=== PATIENT | female | born 1945 | race Caucasian/White ===

== ENCOUNTER 2016-11-13 12:59 | Emergency (ER) | payer MEDICARE, MEDICAID ==
[2016-11-13 13:09] VITALS: BP 151/82; PULSE 98; RESP 18; TEMP 98.2; O2SAT 97
== END 2016-11-13 15:44 | disposition home or self-care (01) ==
LOC: C.ER 12:59
DX: J20.9 Acute bronchitis, unspecified (principal)

== ENCOUNTER 2017-08-08 11:21 | Inpatient (IN) | payer MEDICARE, MEDICAID ==
[2017-08-08 11:26] VITALS: BMI 39.0
--- NOTE | 2017-08-08 11:55 | C.PDOC ---
History Of Present Illness 71 y/o female s/p surgical lumpectomy and biopsy 07/18 presents to ED sent by Dr Yung for evaluation of possible right breast cellulitis. 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 Yung with complaints of pain to right breast for 2 days and brown discharge since last night. Patient was instructed to come to ED for further evaluation. Patient denies fever or chills. Right breast with clean incisional wounds. Bright erythema mild induration and tenderness to right breast surrounding nipple and incisional wound, no drainage Time Seen by Provider: 08/08/17 11:37 Chief Complaint (Nursing): Breast Problem History Per: Patient History/Exam Limitations: no limitations Onset/Duration Of Symptoms: Days Current Symptoms Are (Timing): Still Present Past Medical History Reviewed: Historical Data, Nursing Documentation, Vital Signs Vital Signs: Last Vital Signs Temp 98.2 F 08/08/17 14:16 Pulse 75 08/08/17 14:16 Resp 18 08/08/17 14:16 BP 150/77 08/08/17 14:16 Pulse Ox 98 08/08/17 14:16 - Medical History PMH: Diabetes, HTN, Hypercholesterolemia Surgical History: Cholecystectomy - [facility] Procedures APPLICATION OF SPLINT (11/12/14) TETANUS TOXOID ADMINIST (08/14/13) Family History: States: No Known Family Hx - Social History Hx Tobacco Use: No Hx Alcohol Use: No Hx Substance Use: No - Immunization History Hx Tetanus Toxoid Vaccination: Yes Hx Influenza Vaccination: Yes Hx Pneumococcal Vaccination: No Review Of Systems Constitutional: Negative for: Fever, Chills Gastrointestinal: Negative for: Nausea, Vomiting Skin: Negative for: Rash Physical Exam - Physical Exam Appears: Non-toxic, No Acute Distress Skin: Warm, Dry, No Rash, Other (bright erythema with mild induration to right breast surrounding nipple up to 3cm diameter) Head: Atraumatic, Normacephalic Eye(s): bilateral: Normal Inspection, EOMI Oral Mucosa: Moist Neck: Normal ROM, Supple Chest: Tenderness (to right breast surrounding nipple and incision wound. No drainage. Tactile warmth) Cardiovascular: Rhythm Regular Respiratory: Normal Breath Sounds, No Rales, No Rhonchi, No Wheezing Gastrointestinal/Abdominal: Soft, No Tenderness, No Guarding, No Rebound Extremity: Normal ROM, Capillary Refill (<2 seconds) Neurological/Psych: Oriented x3, Normal Speech Gait: Steady ED Course And Treatment - Laboratory Results Result Diagrams: 08/08/17 12:25 08/08/17 12:25 Lab Interpretation: No Acute Changes O2 Sat by Pulse Oximetry: 100 (RA) Pulse Ox Interpretation: Normal - CT Scan/US breast US Other Rad Studies (CT/US): Read By Radiologist, Radiology Report Reviewed CT/US Interpretation: Accession No. : [id number]. Patient Name / ID : SAM COTTRELL / [id number]. Exam Date : 08/08/2017 13:20:26 ( Approved ). Study Comment : Sex / Age : F / 71Y. Creator : Dwight Govea MD. Dictator : Dwight Govea MD. Life [employer] : Chronic Care Nurse : Dwight Govea MD. Approver2 : Report Date : 08/08/2017 14:14:31. My Comment : . Exam: ultrasound evaluation of the right breast. HISTORY: History recent right breast conservation surgery. Right breast erythema and tenderness. Comparison: Breast ultrasound 2017. FINDINGS: Whole right breast ultrasound was performed. veterinary surgery technologist reported right breast erythema during the exam. Diffuse breast edema noted. In the lower-inner quadrant, there is a complex 7.2 x 4.4 cm fluid collection containing internal echogenic debris. Images of the axilla are unremarkable. IMPRESSION: Complex fluid collection in the right breast lower inner quadrant measuring 7.2 cm. Given diffuse breast edema and erythema, findings favor abscess. Seroma could also be considered. BIRADS Category 2 - benign. RECOMMENDATION: Recommend clinical evaluation by breast surgeon. Consider antibiotic therapy and follow-up ultrasound. Medical Decision Making Medical Decision Making: Impression: Right breast cellulitis, possible abscess Plan: Blood work, UA, Breast US ordered. Clindamycin and IV fluids administered. Progress: Spoke with DR. Yung further history obtained and request patient have IV antibiotics and admit under her service. Requests Dr Burris for ID consult [id number] US shows Complex fluid collection in the right breast lower inner quadrant measuring 7.2 cm. Given diffuse breast edema and erythema, findings favor abscess. Seroma could also be considered. Disposition Counseled Patient/Family Regarding: Diagnosis, Need For Followup - Disposition Disposition: HOSPITALIZED Disposition Time: 13:20 Condition: STABLE - POA Present On Arrival: None - Clinical Impression Clinical Impression: Cellulitis of right breast, History of breast cancer, Breast abscess - PA / ORDERLY / Resident Statement MD/DO has reviewed & agrees with the documentation as recorded. - Scribe Statement The provider has reviewed the documentation as recorded by the Scribe Blessing Rider All medical record entries made by the Luisibharika were at my direction and personally dictated by me. I have reviewed the chart and agree that the record accurately reflects my personal performance of the history, physical exam, medical decision making, and the department course for this patient. I have also personally directed, reviewed, and agree with the discharge instructions and disposition. Decision To Admit - Pt Status Changed To: Hospital Disposition Of: Inpatient - Admit Certification Admit to Inpatient:: After my assessment, the patient will require hospitalization for at least two midnights. This is because of the severity of symptoms shown, intensity of services needed, and/or the medical risk in this patient being treated as an outpatient. - InPatient: Physician Admission Certification: I certify that this patient requires 2 or more midnights of care for the following reason:: Patient with acute cellulitis of right breast, recent surgery, has cancer. Patient will need ID consult and IV antibiotics - . Bed Request Type: Regular Admitting Physician: Nicole Yung Patient Diagnosis: Cellulitis of right breast, History of breast cancer
[2017-08-08 12:34] LABS: BASO # 0.1 K/uL (0.0-0.2); BASO % 0.9 % (0.0-2.0); EOS # 0.1 K/uL (0.0-0.7); EOS % 1.3 % (0.0-4.0); HEMOGLOBIN 14.1 g/dL (11.0-16.0); LYMPH # 2.1 K/uL (1.0-4.3); LYMPH % 24.4 % (20.0-40.0); MEAN CELL VOLUME 94.1 fL (81.0-99.0); MEAN CORPUSCULAR HEMOGLOBIN 31.6 pg (27.0-31.0); MEAN CORPUSCULAR HGB CONC 33.6 g/dL (33.0-37.0); MEAN PLATELET VOLUME 8.6 fL (7.2-11.7); MONO # 0.6 K/uL (0.0-0.8); MONO % 7.3 % (0.0-10.0); NEUT # 5.6 K/uL (1.8-7.0); NEUT % 66.1 % (50.0-75.0); NRBC % 0.1 % (0.0-2.0); RBC 4.45 Mil/uL (3.80-5.20); RED CELL DISTRIBUTION WIDTH 14.3 % (11.5-14.5); WHITE BLOOD COUNT 8.4 K/uL (4.8-10.8)
[2017-08-08 12:43] LABS: INR 1.1
[2017-08-08 13:15] LABS: ALBUMIN 3.9 g/dL (3.5-5.0); ALT/SGPT 41 U/L (9-52); AST/SGOT 47 U/L (14-36); BLOOD UREA NITROGEN 13 mg/dL (7-17); CALCIUM 9.7 mg/dl (8.6-10.4); GFR AFRICAN-AMERICAN > 60; GFR NON-AFRICAN AMERICAN > 60
[2017-08-08] MEDS: Clindamycin 300 MG in Sodium Chloride 0.9% 50 ML IVPB SCH ×2 (14:10→20:27)
--- NOTE | 2017-08-08 14:16 | US ---
Exam: ultrasound evaluation of the right breast. HISTORY: History recent right breast conservation surgery. Right breast erythema and tenderness. Comparison: Breast ultrasound 06/21/2017 FINDINGS: Whole right breast ultrasound was performed. cytopathology technologist reported right breast erythema during the exam. Diffuse breast edema noted. In the lower-inner quadrant, there is a complex 7.2 x 4.4 cm fluid collection containing internal echogenic debris. Images of the axilla are unremarkable. IMPRESSION: Complex fluid collection in the right breast lower inner quadrant measuring 7.2 cm. Given diffuse breast edema and erythema, findings favor abscess. Seroma could also be considered. BIRADS Category 2 - benign RECOMMENDATION: Recommend clinical evaluation by breast surgeon. Consider antibiotic therapy and follow-up ultrasound.
[2017-08-08 14:22] LABS: SQUAMOUS EPITHIAL 6 /hpf (0-5); URINE BACTERIA RARE (<OCC); URINE BILIRUBIN NEGATIVE (NEGATIVE); URINE BLOOD 1+ (NEGATIVE); URINE CLARITY Clear (Clear); URINE COLOR Straw (YELLOW); URINE GLUCOSE (UA) 3+ mg/dL (Normal); URINE LEUKOCYTE ESTERASE 1+ Leu/uL (Negative); URINE PROTEIN NEGATIVE (NEGATIVE); URINE UROBILINOGEN NORMAL mg/dL (0.2-1.0)
--- NOTE | 2017-08-08 16:19 | CP.PCM.HP ---
History of Present Illness - History of Present Illness History of Present Illness: cc; Right breast discharge HPI; Pt is a 71 year old female recently diagnosed with right breast cancer, metastatic. Pt underwent right breast surgery by Dr. Gordon. Pt presented to my office today co right breast "coffee color", discharge and redness. Pt however denies any fever or chills. PT is being followed by Dr. Baker was planning to insert Portacath for chemo. Present on Admission - Present on Admission Any Indicators Present on Admission: No Review of Systems - Constitutional Constitutional: absent: Chills, Fever - EENT Ears: absent: Decreased Hearing Nose/Mouth/Throat: absent: Nasal Congestion - Breasts Breasts: Pain, Skin Changes, Swelling - Cardiovascular Cardiovascular: absent: Chest Pain, Chest Pain with Activity, Orthopnea - Respiratory Respiratory: absent: Cough, Wheezing - Gastrointestinal Gastrointestinal: absent: Abdominal Pain Past Patient History - Infectious Disease Hx of Infectious Diseases: None - Past Medical History & Family History Past Medical History?: Yes - Past Social History Smoking Status: Never Smoked - CARDIAC Hx Hypercholesterolemia: Yes Hx Hypertension: Yes - PULMONARY Hx Respiratory Disorders: No - NEUROLOGICAL Hx Neurological Disorder: No Other/Comment: AAOX3 - HEENT Hx HEENT Problems: No Other/Comment: WEARS GLASSES - RENAL Hx Chronic Kidney Disease: No - ENDOCRINE/METABOLIC Hx Endocrine Disorders: Yes Hx Diabetes Mellitus Type 2: Yes - HEMATOLOGICAL/ONCOLOGICAL Hx Blood Disorders: Yes Hx Blood Transfusions: No Hx Cancer: Yes Other/Comment: Malignant neoplasm rt breast - INTEGUMENTARY Hx Dermatological Problems: No - MUSCULOSKELETAL/RHEUMATOLOGICAL Hx Musculoskeletal Disorders: No Hx Falls: No (DENIES) Other/Comment: AMBULATES WITH CANE - GASTROINTESTINAL Hx Gastrointestinal Disorders: Yes - GENITOURINARY/GYNECOLOGICAL Hx Genitourinary Disorders: No - PSYCHIATRIC Hx Substance Use: No - SURGICAL HISTORY Hx Cholecystectomy: Yes - ANESTHESIA Hx Anesthesia: Yes Hx Anesthesia Reactions: No Hx Malignant Hyperthermia: No Meds Allergies/Adverse Reactions: Allergies Allergy/AdvReac Type Severity Reaction Status Date / Time amoxicillin [From Augmentin] Allergy RASH Verified 08/08/17 11:30 clavulanic acid Allergy RASH Verified 08/08/17 11:30 [From Augmentin] Physical Exam - Constitutional Appears: Well - Eye Exam Eye Exam: Normal appearance - ENT Exam ENT Exam: Mucous Membranes Moist - Neck Exam Neck exam: Positive for: Normal Inspection - Respiratory Exam Respiratory Exam: Clear to Auscultation Bilateral, NORMAL BREATHING PATTERN. absent: Chest Wall Tenderness, Rales - Cardiovascular Exam Cardiovascular Exam: REGULAR RHYTHM, RRR, +S1, +S2. absent: JVD - GI/Abdominal Exam GI & Abdominal Exam: Normal Bowel Sounds, Soft - Extremities Exam Extremities exam: Positive for: normal inspection. Negative for: pedal edema ( right breast tender, skin red and warm and draining dark color fluid) Results - Vital Signs Recent Vital Signs: Last Vital Signs Temp 98.2 F 08/08/17 14:16 Pulse 75 08/08/17 14:16 Resp 18 08/08/17 14:16 BP 150/77 08/08/17 14:16 Pulse Ox 98 08/08/17 14:16 - Labs Result Diagrams: 08/08/17 12:25 08/08/17 12:25 Labs: Laboratory Results - last 24 hr 08/08/17 08/08/17 08/08/17 12:25 12:25 12:25 WBC 8.4 RBC 4.45 Hgb 14.1 Hct 41.9 MCV 94.1 MCH 31.6 H MCHC 33.6 RDW 14.3 Plt Count 272 MPV 8.6 Neut % (Auto) 66.1 Lymph % (Auto) 24.4 [place] % (Auto) 7.3 Eos % (Auto) 1.3 Baso % (Auto) 0.9 Neut # (Auto) 5.6 Lymph # (Auto) 2.1 [place] # (Auto) 0.6 Eos # (Auto) 0.1 Baso # (Auto) 0.1 PT 12.0 INR 1.1 APTT 34 Sodium 142 Potassium 4.1 Chloride 102 Carbon Dioxide 29 Anion Gap 15 BUN 13 Creatinine 0.6 L Est GFR ( Amer) > 60 Est GFR (Non-Af Amer) > 60 Random Glucose 99 Calcium 9.7 Total Bilirubin 0.6 AST 47 H ALT 41 Alkaline Phosphatase 72 Total Protein 7.9 Albumin 3.9 Globulin 4.0 H Albumin/Globulin Ratio 1.0 Urine Color Urine Clarity Urine pH Ur Specific [place] Urine Protein Urine Glucose (UA) Urine Ketones Urine Blood Urine Nitrate Urine Bilirubin Urine Urobilinogen Ur Leukocyte Esterase Urine WBC (Auto) Urine RBC (Auto) Ur Squamous Epith Cells Urine Bacteria 08/08/17 14:06 WBC RBC Hgb Hct MCV MCH MCHC RDW Plt Count MPV Neut % (Auto) Lymph % (Auto) [place] % (Auto) Eos % (Auto) Baso % (Auto) Neut # (Auto) Lymph # (Auto) [place] # (Auto) Eos # (Auto) Baso # (Auto) PT INR APTT Sodium Potassium Chloride Carbon Dioxide Anion Gap BUN Creatinine Est GFR ( Amer) Est GFR (Non-Af Amer) Random Glucose Calcium Total Bilirubin AST ALT Alkaline Phosphatase Total Protein Albumin Globulin Albumin/Globulin Ratio Urine Color Straw Urine Clarity Clear Urine pH 6.0 Ur Specific [place] 1.012 Urine Protein Negative Urine Glucose (UA) 3+ H Urine Ketones Negative Urine Blood 1+ H Urine Nitrate Negative Urine Bilirubin Negative Urine Urobilinogen Normal Ur Leukocyte Esterase 1+ H Urine WBC (Auto) 13 H Urine RBC (Auto) 10 H Ur Squamous Epith Cells 6 H Urine Bacteria Rare Assessment & Plan - Assessment and Plan (Free Text) Assessment: Metastatic breast ca recent right breast surgery no infected dm htn admid id and hem onc consutl IV abx blood culture spoke to Dr. Burris added ivf to protect from vanco
--- NOTE | 2017-08-08 17:43 | CP.PCM.CON ---
History of Present Illness - History of Present Illness History of Present Illness: INFECTIOUS DISEASE CONSULT; HPI; 71-year-old female with history of diabetes mellitus 2, HTN, hypercholesterolemia was recently diagnosed with right breast ductal metastatic breast CA. Patient underwent right breast surgery [place] [facility]. Patient presented to the office of PMD today complaining off pain right breast radiating to her shoulder and upper arm and coffee color discharge and erythema and redness of right breast. Patient denies any fever or chills but is complaining of pain on the incision sites above and below the breast and also generalized pain in the breast. PATIENT PRESENTLY NOT ON ANY CHEMOTHERAPY,BUT IS FOLLOWING UP WITH ONCOLOGIST DR. RUSHING. PATIENT DENIES ANY COUGH, SHORTNESS OF BREATH, CHEST PAIN OR PALPITATIONS. PMH: Diabetes, HTN, Hypercholesterolemia Surgical History: Cholecystectomy, S/P RIGHT BREAST BIOPSY 07/18/17 [place] [facility]. - [facility] Procedures APPLICATION OF SPLINT (11/12/14) TETANUS TOXOID ADMINIST (08/14/13) Family History: States: No Known Family Hx - Social History Hx Tobacco Use: No Hx Alcohol Use: No Hx Substance Use: No - Immunization History Hx Tetanus Toxoid Vaccination: Yes Hx Influenza Vaccination: Yes Hx Pneumococcal Vaccination: No. ALLERGY; AMOXICILLIN, CLAVULANIC ACID. Review of Systems - Constitutional Constitutional: absent: Chills, Fever - EENT Eyes: absent: Change in Vision Nose/Mouth/Throat: absent: Dry Mouth - Breasts Breasts: As Per HPI, Pain, Skin Changes, Swelling (RIGHT BREAST INDURATED, WARM , ERYTHEMATOUS WITH EDEMA AND TENDERNESS ON PALPATION.) - Cardiovascular Cardiovascular: Chest Pain (RIGHT CHEST AND SHOULDER PAIN RADIATING FROM THE BREAST.). absent: Dyspnea - Respiratory Respiratory: absent: Cough, Hemoptysis - Gastrointestinal Gastrointestinal: absent: Abdominal Pain, Nausea, Vomiting - Genitourinary Genitourinary: absent: Dysuria, Urinary Hesitance - Menstruation Menstruation: Post Menopausal - Musculoskeletal Musculoskeletal: Radiating Pain into Limb (FROM RIGHT BREAST 2 UPPER ARM AND SHOULDER.) - Neurological Neurological: Behavioral Changes. absent: Headaches - Hematologic/Lymphatic Hematologic: As Per HPI. absent: Easy Bruising, Lymphadenopathy Past Patient History - Infectious Disease Hx of Infectious Diseases: None - Past Medical History & Family History Past Medical History?: Yes - Past Social History Smoking Status: Never Smoked - CARDIAC Hx Hypercholesterolemia: Yes Hx Hypertension: Yes - PULMONARY Hx Respiratory Disorders: No - NEUROLOGICAL Hx Neurological Disorder: No Other/Comment: AAOX3 - HEENT Hx HEENT Problems: No Other/Comment: WEARS GLASSES - RENAL Hx Chronic Kidney Disease: No - ENDOCRINE/METABOLIC Hx Endocrine Disorders: Yes Hx Diabetes Mellitus Type 2: Yes - HEMATOLOGICAL/ONCOLOGICAL Hx Blood Disorders: Yes Hx Blood Transfusions: No Hx Cancer: Yes Other/Comment: Malignant neoplasm rt breast - INTEGUMENTARY Hx Dermatological Problems: No - MUSCULOSKELETAL/RHEUMATOLOGICAL Hx Musculoskeletal Disorders: No Hx Falls: No (DENIES) Other/Comment: AMBULATES WITH CANE - GASTROINTESTINAL Hx Gastrointestinal Disorders: Yes - GENITOURINARY/GYNECOLOGICAL Hx Genitourinary Disorders: No - PSYCHIATRIC Hx Substance Use: No - SURGICAL HISTORY Hx Cholecystectomy: Yes - ANESTHESIA Hx Anesthesia: Yes Hx Anesthesia Reactions: No Hx Malignant Hyperthermia: No Meds Allergies/Adverse Reactions: Allergies Allergy/AdvReac Type Severity Reaction Status Date / Time amoxicillin [From Augmentin] Allergy RASH Verified 08/08/17 11:30 clavulanic acid Allergy RASH Verified 08/08/17 11:30 [From Augmentin] - Medications Medications: Current Medications Aspirin (Ecotrin) 81 mg PO DAILY [facility] Heparin Sodium (Porcine) (Heparin) 5,000 units SC Q8 [facility] Hydrochlorothiazide (Hydrodiuril) 25 mg PO DAILY [facility] Clindamycin Phosphate 300 mg/ (Sodium Chloride) 52 mls @ 100 mls/hr IVPB Q8H [facility] PRN Reason: Protocol Last Admin: 08/08/17 14:10 Dose: 100 mls/hr Vancomycin HCl 1,000 mg/ (Sodium Chloride) 250 mls @ 166.6 mls/hr IVPB Q12H [facility] PRN Reason: Protocol Aztreonam 1 gm/ Sodium (Chloride) 100 mls @ 100 mls/hr IVPB Q8H [facility] PRN Reason: Protocol Insulin Aspart (Novolog) 0 unit SC ACHS [facility] PRN Reason: Protocol Insulin Glargine (Lantus) 45 unit SC HS [facility] Losartan Potassium (Cozaar) 100 mg PO DAILY [facility] Pantoprazole Sodium (Protonix Ec Tab) 40 mg PO DAILY [facility] Rosuvastatin Calcium (Crestor) 20 mg PO HS [facility] Physical Exam - Constitutional Appears: No Acute Distress Additional comments: MODERATELY OBESE, WEIGHT 200 POUNDS. bmi 39.1 kg PER METER SQUARE. - Head Exam Head Exam: NORMAL INSPECTION - Eye Exam Eye Exam: EOMI, PERRL - ENT Exam ENT Exam: Normal Oropharynx - Respiratory Exam Respiratory Exam: Clear to Auscultation Bilateral, NORMAL BREATHING PATTERN - GI/Abdominal Exam GI & Abdominal Exam: Normal Bowel Sounds, Soft. absent: Organomegaly - Extremities Exam Extremities exam: Positive for: normal capillary refill, pedal pulses present. Negative for: calf tenderness, pedal edema - Neurological Exam Neurological exam: Alert, CN II-XII Intact, Oriented x3, Reflexes Normal - Psychiatric Exam Psychiatric exam: Normal Mood - Skin Skin Exam: Erythema (RIGHT BREAST WITH INDURATED SKIN AND ERYTHEMA AND CELLULITIS. tENDERNESS TO PALPATION.), Warm Results - Vital Signs Recent Vital Signs: Last Vital Signs Temp 97.6 F 08/08/17 16:09 Pulse 76 08/08/17 16:09 Resp 20 08/08/17 16:09 BP 144/77 08/08/17 16:09 Pulse Ox 100 08/08/17 17:04 - Labs Result Diagrams: 08/08/17 12:25 08/08/17 12:25 Labs: Laboratory Results - last 24 hr 08/08/17 08/08/17 08/08/17 12:25 12:25 12:25 WBC 8.4 RBC 4.45 Hgb 14.1 Hct 41.9 MCV 94.1 MCH 31.6 H MCHC 33.6 RDW 14.3 Plt Count 272 MPV 8.6 Neut % (Auto) 66.1 Lymph % (Auto) 24.4 [place] % (Auto) 7.3 Eos % (Auto) 1.3 Baso % (Auto) 0.9 Neut # (Auto) 5.6 Lymph # (Auto) 2.1 [place] # (Auto) 0.6 Eos # (Auto) 0.1 Baso # (Auto) 0.1 PT 12.0 INR 1.1 APTT 34 Sodium 142 Potassium 4.1 Chloride 102 Carbon Dioxide 29 Anion Gap 15 BUN 13 Creatinine 0.6 L Est GFR ( Amer) > 60 Est GFR (Non-Af Amer) > 60 POC Glucose (mg/dL) Random Glucose 99 Calcium 9.7 Total Bilirubin 0.6 AST 47 H ALT 41 Alkaline Phosphatase 72 Total Protein 7.9 Albumin 3.9 Globulin 4.0 H Albumin/Globulin Ratio 1.0 Urine Color Urine Clarity Urine pH Ur Specific [place] Urine Protein Urine Glucose (UA) Urine Ketones Urine Blood Urine Nitrate Urine Bilirubin Urine Urobilinogen Ur Leukocyte Esterase Urine WBC (Auto) Urine RBC (Auto) Ur Squamous Epith Cells Urine Bacteria 08/08/17 08/08/17 14:06 16:27 WBC RBC Hgb Hct MCV MCH MCHC RDW Plt Count MPV Neut % (Auto) Lymph % (Auto) [place] % (Auto) Eos % (Auto) Baso % (Auto) Neut # (Auto) Lymph # (Auto) [place] # (Auto) Eos # (Auto) Baso # (Auto) PT INR APTT Sodium Potassium Chloride Carbon Dioxide Anion Gap BUN Creatinine Est GFR ( Amer) Est GFR (Non-Af Amer) POC Glucose (mg/dL) 183 H Random Glucose Calcium Total Bilirubin AST ALT Alkaline Phosphatase Total Protein Albumin Globulin Albumin/Globulin Ratio Urine Color Straw Urine Clarity Clear Urine pH 6.0 Ur Specific [place] 1.012 Urine Protein Negative Urine Glucose (UA) 3+ H Urine Ketones Negative Urine Blood 1+ H Urine Nitrate Negative Urine Bilirubin Negative Urine Urobilinogen Normal Ur Leukocyte Esterase 1+ H Urine WBC (Auto) 13 H Urine RBC (Auto) 10 H Ur Squamous Epith Cells 6 H Urine Bacteria Rare Assessment & Plan (1) Breast abscess Assessment and Plan: S/P BREAST SURGERY 07/18/17 .BLOOD CULTURES 2 SETS. .DRAINAGE RIGHT BREAST FOR CULTURE. . START iv VANCOMYCIN 1 G EVERY 12 HOURLY 08/08/17. . START iv AZACTAM 1 G EVERY 8 HOURLY FOR GRAM-NEGATIVE COVERAGE WHILE AWAITING CULTURES. . 08/08/17 . CONTINUE iv CLEOCIN 300 MG EVERY 8 HOURLY. 08/08/17. . fOLLOW-UP VANCO TROUGH PRIOR TO THE FOURTH DOSE AND KEEP BETWEEN 10 AND 20. . ESR . CRP. . F/U RENAL FUNCTIONS CLOSELY.. . F/U LFTS. Status: Acute (2) Cellulitis of right breast Status: Acute (3) History of breast cancer Assessment and Plan: S/P RIGHT BREAST SURGERY 07/18/17. Status: Acute (4) Diabetes Status: Chronic (5) Hypertension Status: Chronic (6) Hypercholesterolemia Status: Acute
[2017-08-08] MEDS: (Novolog) Insulin Aspart, Recombinant 100 u/ml 10 ml vial SC SCH ×2 (18:05→21:55)
[2017-08-08] MEDS: Aztreonam 1 GM in Sodium Chloride 0.9% 100 ML IVPB SCH (20:26)
[2017-08-08] MEDS: Vancomycin 1 gm/NS 200 ml 1 GM/200 ML BAG IVPB SCH (20:36)
[2017-08-08] MEDS: (Lantus) Insulin Glargine, Recombinant SC SCH (21:53)
[2017-08-09] MEDS: Aztreonam 1 GM in Sodium Chloride 0.9% 100 ML IVPB SCH ×3 (03:09→18:02)
[2017-08-09] MEDS: Clindamycin 300 MG in Sodium Chloride 0.9% 50 ML IVPB SCH ×3 (04:38→20:11)
[2017-08-09] MEDS: (Novolog) Insulin Aspart, Recombinant 100 u/ml 10 ml vial SC SCH ×4 (07:42→21:29)
[2017-08-09] MEDS: Vancomycin 1 gm/NS 200 ml 1 GM/200 ML BAG IVPB SCH ×2 (08:20→20:11)
[2017-08-09] MEDS: Pantoprazole 40 mg EC Tab PO SCH (09:52)
--- NOTE | 2017-08-09 16:41 | CP.PCM.PN ---
Subjective - Date & Time of Evaluation Date of Evaluation: 08/09/17 Time of Evaluation: 16:40 - Subjective Subjective: see H and p Physical done today less swelling stilll tender however dark color breast discharge Objective - Vital Signs/Intake and Output Vital Signs (last 24 hours): Temp Pulse Resp BP Pulse Ox 98.9 F 78 20 120/67 98 08/09/17 08:00 08/09/17 14:04 08/09/17 08:00 08/09/17 14:04 08/09/17 14:04 Intake and Output: 08/09/17 08/09/17 06:59 18:59 Intake Total 600 1222 Balance 600 1222 - Medications Medications: Current Medications Aspirin (Ecotrin) 81 mg PO DAILY [facility] Last Admin: 08/09/17 09:52 Dose: 81 mg Heparin Sodium (Porcine) (Heparin) 5,000 units SC Q8 [facility] Last Admin: 08/09/17 14:08 Dose: 5,000 units Hydrochlorothiazide (Hydrodiuril) 25 mg PO DAILY [facility] Last Admin: 08/09/17 09:52 Dose: 25 mg Clindamycin Phosphate 300 mg/ (Sodium Chloride) 52 mls @ 100 mls/hr IVPB Q8H [facility] PRN Reason: Protocol Last Admin: 08/09/17 12:12 Dose: 100 mls/hr Vancomycin/Sodium Chloride (Vancomycin 1 Gm/Ns 200 Ml) 1 gm in 200 mls @ 133 mls/hr IVPB Q12H [facility] PRN Reason: Protocol Stop: 08/13/17 20:01 Last Admin: 08/09/17 08:20 Dose: 133 mls/hr Aztreonam 1 gm/ Sodium (Chloride) 100 mls @ 100 mls/hr IVPB Q8H [facility] PRN Reason: Protocol Last Admin: 08/09/17 10:56 Dose: 100 mls/hr Sodium Chloride (Sodium Chloride 0.45%) 1,000 mls @ 50 mls/hr IV .Q20H [facility] Insulin Aspart (Novolog) 0 unit SC ACHS [facility] PRN Reason: Protocol Last Admin: 08/09/17 11:51 Dose: Not Given Insulin Glargine (Lantus) 45 unit SC HS [facility] Last Admin: 08/08/17 21:53 Dose: 45 units Losartan Potassium (Cozaar) 100 mg PO DAILY [facility] Last Admin: 08/09/17 09:52 Dose: 100 mg Pantoprazole Sodium (Protonix Ec Tab) 40 mg PO DAILY [facility] Last Admin: 08/09/17 09:52 Dose: 40 mg Rosuvastatin Calcium (Crestor) 20 mg PO HS [facility] Last Admin: 08/08/17 21:55 Dose: 20 mg - Labs Labs: 08/08/17 12:25 08/08/17 12:25 PT 12.0 SECONDS (9.7-12.2) 08/08/17 12:25 INR 1.1 08/08/17 12:25 APTT 34 SECONDS (21-34) 08/08/17 12:25 - Eye Exam Eye Exam: Normal appearance - ENT Exam ENT Exam: Mucous Membranes Moist - Respiratory Exam Respiratory Exam: Chest Wall Tenderness - Cardiovascular Exam Cardiovascular Exam: REGULAR RHYTHM - GI/Abdominal Exam GI & Abdominal Exam: Soft Assessment and Plan - Assessment and Plan (Free Text) Assessment: id; managing abx ultrasound breat rule out abscess bp and diabetes ; stable
[2017-08-09] MEDS: Sodium Chloride 0.45% 1,000 ML IV SCH (18:21)
--- NOTE | 2017-08-09 19:28 | CP.PCM.CON ---
History of Present Illness - History of Present Illness History of Present Illness: 71 yo woman with recent lumpectomy for rt. breast cancer, increasing redness, swelling, pain over the past week. Denies fever, chills. Past Patient History - Infectious Disease Hx of Infectious Diseases: None - Past Medical History & Family History Past Medical History?: Yes - Past Social History Smoking Status: Never Smoked - CARDIAC Hx Hypercholesterolemia: Yes Hx Hypertension: Yes - PULMONARY Hx Respiratory Disorders: No - NEUROLOGICAL Hx Neurological Disorder: No Other/Comment: AAOX3 - HEENT Hx HEENT Problems: No Other/Comment: WEARS GLASSES - RENAL Hx Chronic Kidney Disease: No - ENDOCRINE/METABOLIC Hx Endocrine Disorders: Yes Hx Diabetes Mellitus Type 2: Yes - HEMATOLOGICAL/ONCOLOGICAL Hx Blood Disorders: Yes Hx Blood Transfusions: No Hx Cancer: Yes Other/Comment: Malignant neoplasm rt breast - INTEGUMENTARY Hx Dermatological Problems: No - MUSCULOSKELETAL/RHEUMATOLOGICAL Hx Musculoskeletal Disorders: No Hx Falls: No (DENIES) Other/Comment: AMBULATES WITH CANE - GASTROINTESTINAL Hx Gastrointestinal Disorders: Yes - GENITOURINARY/GYNECOLOGICAL Hx Genitourinary Disorders: No - PSYCHIATRIC Hx Substance Use: No - SURGICAL HISTORY Hx Cholecystectomy: Yes - ANESTHESIA Hx Anesthesia: Yes Hx Anesthesia Reactions: No Hx Malignant Hyperthermia: No Meds Allergies/Adverse Reactions: Allergies Allergy/AdvReac Type Severity Reaction Status Date / Time amoxicillin [From Augmentin] Allergy RASH Verified 08/08/17 11:30 clavulanic acid Allergy RASH Verified 08/08/17 11:30 [From Augmentin] - Medications Medications: Current Medications Aspirin (Ecotrin) 81 mg PO DAILY [facility] Last Admin: 08/09/17 09:52 Dose: 81 mg Heparin Sodium (Porcine) (Heparin) 5,000 units SC Q8 [facility] Last Admin: 08/09/17 14:08 Dose: 5,000 units Hydrochlorothiazide (Hydrodiuril) 25 mg PO DAILY [facility] Last Admin: 08/09/17 09:52 Dose: 25 mg Clindamycin Phosphate 300 mg/ (Sodium Chloride) 52 mls @ 100 mls/hr IVPB Q8H [facility] PRN Reason: Protocol Last Admin: 08/09/17 12:12 Dose: 100 mls/hr Vancomycin/Sodium Chloride (Vancomycin 1 Gm/Ns 200 Ml) 1 gm in 200 mls @ 133 mls/hr IVPB Q12H [facility] PRN Reason: Protocol Stop: 08/13/17 20:01 Last Admin: 08/09/17 08:20 Dose: 133 mls/hr Aztreonam 1 gm/ Sodium (Chloride) 100 mls @ 100 mls/hr IVPB Q8H [facility] PRN Reason: Protocol Last Admin: 08/09/17 18:02 Dose: 100 mls/hr Sodium Chloride (Sodium Chloride 0.45%) 1,000 mls @ 50 mls/hr IV .Q20H [facility] Last Admin: 08/09/17 18:21 Dose: 50 mls/hr Insulin Aspart (Novolog) 0 unit SC ACHS [facility] PRN Reason: Protocol Last Admin: 08/09/17 18:05 Dose: 1 unit Insulin Glargine (Lantus) 45 unit SC [facility] Last Admin: 08/08/17 21:53 Dose: 45 units Losartan Potassium (Cozaar) 100 mg PO DAILY [facility] Last Admin: 08/09/17 09:52 Dose: 100 mg Pantoprazole Sodium (Protonix Ec Tab) 40 mg PO DAILY [facility] Last Admin: 08/09/17 09:52 Dose: 40 mg Rosuvastatin Calcium (Crestor) 20 mg PO [facility] Last Admin: 08/08/17 21:55 Dose: 20 mg Results - Vital Signs Recent Vital Signs: Last Vital Signs Temp 98.3 F 08/09/17 15:00 Pulse 80 08/09/17 15:00 Resp 20 08/09/17 15:00 BP 152/82 H 08/09/17 15:00 Pulse Ox 99 08/09/17 15:00 - Labs Result Diagrams: 08/08/17 12:25 08/08/17 12:25 Labs: Laboratory Results - last 24 hr 08/08/17 08/09/17 08/09/17 21:20 07:23 11:19 POC Glucose (mg/dL) 139 H 107 128 H 08/09/17 16:18 POC Glucose (mg/dL) 152 H Assessment & Plan - Assessment and Plan (Free Text) Assessment: 71 yo woman, with history of breast cancer, increasing left breast tenderness, swelling, redness, with pain traveling down the rt. arm, brownish green discharge from wound, currently on antibiotics by ID. Continue antibiotics, will need aspiration or drainage of ? infected seroma, ? as outpatient. Will schedule portacat for monday if patient feeling better and cleared by ID for procedure. Above discussed with patient
[2017-08-09] MEDS ORDERED: Oxycodone/Acetaminophen 5/325 mg Tab PO PRN (19:29)
--- NOTE | 2017-08-09 19:34 | CP.PCM.PN ---
Subjective - Date & Time of Evaluation Date of Evaluation: 08/09/17 Time of Evaluation: 19:34 - Subjective Subjective: CHIEF COMPLAINTS TODAY : afebrile,VSS C/O RT. BREAST PAIN AND DISCHARGE Seropurulent. ROS. HEENT : N. Resp : No SOB wheezing, cough Cardio : No CP, PND orthopnea GI : No abd. 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 Musculoskel : N Ext. : Pedal pulses intact, no edema or calf pain Derm : N Psych : N. PE. Pt. is alert awake in no distress. V.S As noted in the chart Head ,ear nose,throat and eyes : Normal. Neck : Supple with normal carotids. Lungs: Clear air entry. Heart : S1 & S2 normal . . No murmur. S4 + Abd : Soft non tender with normal bowel sounds. Neuro : Moves all ext. with no localized deficit. Ext : No edema with intact pulses. Neg. calf tenderness Derm : RT. BREAST EDEMATOUS/INDURATED WITH ERYTHEMA AND CELLULITIS WHOLE OF THE BREAST. SEROSANGUINEOUS DRAINAGE NOTED FROM THE LOWER INCISION SITE OF THE BREAST. Radiology/Labs . ULTRASOUND RIGHT BREAST NOTED 08/08/17. 7.2 CM COLLECTION ? ABSCESS/VS SEROMA. Objective - Vital Signs/Intake and Output Vital Signs (last 24 hours): Temp Pulse Resp BP Pulse Ox 98.3 F 80 20 152/82 H 99 08/09/17 15:00 08/09/17 15:00 08/09/17 15:00 08/09/17 15:00 08/09/17 15:00 Intake and Output: 08/09/17 08/10/17 18:59 06:59 Intake Total 1222 Balance 1222 - Medications Medications: Current Medications Aspirin (Ecotrin) 81 mg PO DAILY [facility] Last Admin: 08/09/17 09:52 Dose: 81 mg Docusate Sodium (Colace) 100 mg PO BID [facility] Heparin Sodium (Porcine) (Heparin) 5,000 units SC Q8 [facility] Last Admin: 08/09/17 14:08 Dose: 5,000 units Hydrochlorothiazide (Hydrodiuril) 25 mg PO DAILY [facility] Last Admin: 08/09/17 09:52 Dose: 25 mg Clindamycin Phosphate 300 mg/ (Sodium Chloride) 52 mls @ 100 mls/hr IVPB Q8H [facility] PRN Reason: Protocol Last Admin: 08/09/17 12:12 Dose: 100 mls/hr Vancomycin/Sodium Chloride (Vancomycin 1 Gm/Ns 200 Ml) 1 gm in 200 mls @ 133 mls/hr IVPB Q12H [facility] PRN Reason: Protocol Stop: 08/13/17 20:01 Last Admin: 08/09/17 08:20 Dose: 133 mls/hr Aztreonam 1 gm/ Sodium (Chloride) 100 mls @ 100 mls/hr IVPB Q8H [facility] PRN Reason: Protocol Last Admin: 08/09/17 18:02 Dose: 100 mls/hr Sodium Chloride (Sodium Chloride 0.45%) 1,000 mls @ 50 mls/hr IV .Q20H [facility] Last Admin: 08/09/17 18:21 Dose: 50 mls/hr Insulin Aspart (Novolog) 0 unit SC ACHS [facility] PRN Reason: Protocol Last Admin: 08/09/17 18:05 Dose: 1 unit Insulin Glargine (Lantus) [address] [facility] Last Admin: 08/08/17 21:53 Dose: 45 units Losartan Potassium (Cozaar) 100 mg PO DAILY [facility] Last Admin: 08/09/17 09:52 Dose: 100 mg Oxycodone/Acetaminophen (Percocet 5/325 Mg Tab) 1 tab PO Q6H [facility]N PRN Reason: Pain, moderate (4-7) Stop: 08/12/17 19:30 Pantoprazole Sodium (Protonix Ec Tab) 40 mg PO DAILY [facility] Last Admin: 08/09/17 09:52 Dose: 40 mg Rosuvastatin Calcium (Crestor) [address] [facility] Last Admin: 08/08/17 21:55 Dose: 20 mg Tramadol HCl (Ultram) 50 mg PO Q8H [facility] - Labs Labs: 08/08/17 12:25 08/08/17 12:25 PT 12.0 SECONDS (9.7-12.2) 08/08/17 12:25 INR 1.1 08/08/17 12:25 APTT 34 SECONDS (21-34) 08/08/17 12:25 Assessment and Plan (1) Breast abscess Assessment & Plan: S/P BREAST SURGERY 07/18/17 .BLOOD CULTURES 2 SETS. .DRAINAGE RIGHT BREAST FOR CULTURE. . CONTINUE iv VANCOMYCIN 1 G EVERY 12 HOURLY 08/08/17. . CONTINUE iv AZACTAM 1 G EVERY 8 HOURLY FOR GRAM-NEGATIVE COVERAGE WHILE AWAITING CULTURES. . 08/08/17 . CONTINUE iv CLEOCIN 300 MG EVERY 8 HOURLY. 08/08/17. . fOLLOW-UP VANCO TROUGH PRIOR TO THE FOURTH DOSE AND KEEP BETWEEN 10 AND 20. . ESR . CRP. . F/U RENAL FUNCTIONS CLOSELY.. . F/U LFTS. CASE DISCUSSED WITH ONCOLOGY/ AND DR DAVIDSON. F/U CULTURES AND ADJUST ANTIBIOTICS. PATIENT MAY NEED DRAINAGE OF THE LARGE COLLECTION RIGHT BREAST. Status: Acute (2) Cellulitis of right breast Status: Acute (3) History of breast cancer Status: Acute (4) Diabetes Status: Chronic (5) Hypertension Status: Chronic (6) Hypercholesterolemia Status: Acute
[2017-08-09] MEDS: (Lantus) Insulin Glargine, Recombinant SC SCH (21:28)
[2017-08-10] MEDS: Aztreonam 1 GM in Sodium Chloride 0.9% 100 ML IVPB SCH ×3 (03:03→18:59)
[2017-08-10] MEDS: Clindamycin 300 MG in Sodium Chloride 0.9% 50 ML IVPB SCH ×3 (04:04→20:31)
[2017-08-10 07:36] LABS: BLOOD UREA NITROGEN 14 mg/dL (7-17); CALCIUM 8.7 mg/dl (8.6-10.4); GFR AFRICAN-AMERICAN > 60; GFR NON-AFRICAN AMERICAN > 60
[2017-08-10] MEDS: (Novolog) Insulin Aspart, Recombinant 100 u/ml 10 ml vial SC SCH ×4 (08:05→22:09)
[2017-08-10] MEDS: Vancomycin 1 gm/NS 200 ml 1 GM/200 ML BAG IVPB SCH ×2 (08:38→20:39)
[2017-08-10] MEDS: Pantoprazole 40 mg EC Tab PO SCH (10:32)
--- NOTE | 2017-08-10 11:27 | PCM.SURG1 ---
Surgeon's Initial Post Op Note - Surgeon's Notes Surgeon: Arvind Farrell MD Wedding Planner: NONE Type of Anesthesia: Local Pre-Operative Diagnosis: Right breast fluid collection Operative Findings: Skin thickening right breast, inflammatory chages, complex fluid collection deep to incision site. Post-Operative Diagnosis: Right breast fluid collection Operation Performed: US guided aspiration of right breast fluid collection Specimen/Specimens Removed: 50 cc of slightly brownish fluid Estimated Blood Loss: EBL {In ML}: 0 Blood Products Given: N/A Drains Used: No Drains Post-Op Condition: Fair Date of Surgery/Procedure: 08/10/17 Time of Surgery/Procedure: 11:25
--- NOTE | 2017-08-10 12:31 | US ---
PROCEDURE: Date of procedure: 08/10/2017 Procedure: 1. Right breast fluid collection drainage with ultrasound guidance, CPT 97434 Medications: 5cc Lidocaine 1 % HISTORY: Right breast fluid collection TECHNIQUE: Following informed consent procedure time-out, limited ultrasound of the right breast showed a complex collection deep to the surgical scar. There is also significant cellulitis and thickening of the skin. After the patient abdomen was prepped and draped in the usual sterile fashion, the skin was anesthetized with 1 % lidocaine. A 5 [place] Optinieh catheter was advanced under ultrasound guidance into the collection. 50 cubic centimeters of brownish colored drainage was removed and sent for culture and sensitivity. A dressing was applied. IMPRESSION: Ultrasound-guided aspiration of right breast fluid collection. The fluid specimen was sent for culture sensitivity.
[2017-08-10] MEDS: Sodium Chloride 0.45% 1,000 ML IV SCH (13:07)
--- NOTE | 2017-08-10 13:35 | CP.PCM.PN ---
Subjective - Date & Time of Evaluation Date of Evaluation: 08/10/17 Time of Evaluation: 13:35 - Subjective Subjective: CHIEF COMPLAINTS TODAY : afebrile,VSS LESS PAIN RT BREAST S/P ASPIRATION RT BREAST COLLECTION BY IR . 08/10/17 ROS. HEENT : N. Resp : No SOB wheezing, cough Cardio : No CP, PND orthopnea GI : No abd. 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 Musculoskel : N Ext. : Pedal pulses intact, no edema or calf pain Derm : N Psych : N. PE. Pt. is alert awake in no distress. V.S As noted in the chart Head ,ear nose,throat and eyes : Normal. Neck : Supple with normal carotids. Lungs: Clear air entry. Heart : S1 & S2 normal . . No murmur. S4 + Abd : Soft non tender with normal bowel sounds. Neuro : Moves all ext. with no localized deficit. Ext : No edema with intact pulses. Neg. calf tenderness Derm : RT. BREAST EDEMATOUS/INDURATED WITH ERYTHEMA AND CELLULITIS WHOLE OF THE BREAST. SEROSANGUINEOUS DRAINAGE NOTED FROM THE LOWER INCISION SITE OF THE BREAST. Radiology/Labs . WOUND CULTURES +VE GPC/GNR, ULTRASOUND RIGHT BREAST NOTED 08/08/17. 7.2 CM COLLECTION ? ABSCESS/VS SEROMA. Objective - Vital Signs/Intake and Output Vital Signs (last 24 hours): Temp Pulse Resp BP Pulse Ox 98.1 F 66 20 136/78 96 08/10/17 08:01 08/10/17 08:01 08/10/17 08:01 08/10/17 08:01 08/10/17 08:01 Intake and Output: 08/10/17 08/10/17 06:59 18:59 Intake Total 400 Balance 400 - Medications Medications: Current Medications Aspirin (Ecotrin) 81 mg PO DAILY [facility] Last Admin: 08/10/17 10:32 Dose: 81 mg Docusate Sodium (Colace) 100 mg PO BID [facility] Last Admin: 08/10/17 10:32 Dose: 100 mg Heparin Sodium (Porcine) (Heparin) 5,000 units SC Q8 [facility] Last Admin: 08/10/17 06:00 Dose: Not Given Hydrochlorothiazide (Hydrodiuril) 25 mg PO DAILY [facility] Last Admin: 08/10/17 10:33 Dose: 25 mg Clindamycin Phosphate 300 mg/ (Sodium Chloride) 52 mls @ 100 mls/hr IVPB Q8H [facility] PRN Reason: Protocol Last Admin: 08/10/17 13:09 Dose: 100 mls/hr Vancomycin/Sodium Chloride (Vancomycin 1 Gm/Ns 200 Ml) 1 gm in 200 mls @ 133 mls/hr IVPB Q12H [facility] PRN Reason: Protocol Stop: 08/13/17 20:01 Last Admin: 08/10/17 08:38 Dose: 133 mls/hr Aztreonam 1 gm/ Sodium (Chloride) 100 mls @ 100 mls/hr IVPB Q8H [facility] PRN Reason: Protocol Last Admin: 08/10/17 13:08 Dose: 100 mls/hr Sodium Chloride (Sodium Chloride 0.45%) 1,000 mls @ 50 mls/hr IV .Q20H [facility] Last Admin: 08/10/17 13:07 Dose: Not Given Insulin Aspart (Novolog) 0 unit SC ACHS [facility] PRN Reason: Protocol Last Admin: 08/10/17 13:04 Dose: 2 unit Insulin Glargine (Lantus) 45 unit SC [facility] Last Admin: 08/09/17 21:28 Dose: 45 units Losartan Potassium (Cozaar) 100 mg PO DAILY [facility] Last Admin: 08/10/17 10:32 Dose: 100 mg Oxycodone/Acetaminophen (Percocet 5/325 Mg Tab) 1 tab PO Q6H [facility]N PRN Reason: Pain, moderate (4-7) Stop: 08/12/17 19:30 Pantoprazole Sodium (Protonix Ec Tab) 40 mg PO DAILY [facility] Last Admin: 08/10/17 10:32 Dose: 40 mg Rosuvastatin Calcium (Crestor) 20 mg PO HS [facility] Last Admin: 08/09/17 21:28 Dose: 20 mg Tramadol HCl (Ultram) 50 mg PO Q8H [facility] Last Admin: 08/10/17 13:03 Dose: 50 mg - Labs Labs: 08/08/17 12:25 08/10/17 07:01 PT 12.0 SECONDS (9.7-12.2) 08/08/17 12:25 INR 1.1 08/08/17 12:25 APTT 34 SECONDS (21-34) 08/08/17 12:25 Assessment and Plan (1) Breast abscess Assessment & Plan: S/P ASPIRATION RIGHT BREAST COLLECTION FOR CULTURE.08/10/17 F/U WOUND CULTURES AND ASPIRATE . CONTINUE iv VANCOMYCIN 1 G EVERY 12 HOURLY 08/08/17. . CONTINUE iv AZACTAM 1 G EVERY 8 HOURLY FOR GRAM-NEGATIVE COVERAGE WHILE AWAITING CULTURES. . 08/08/17 . CONTINUE iv CLEOCIN 300 MG EVERY 8 HOURLY. 08/08/17. . fOLLOW-UP VANCO TROUGH PRIOR TO THE FOURTH DOSE AND KEEP BETWEEN 10 AND 20 IN AM DOSE ( SPOKE TO BOW[place] ROBLES TO DRAW VANCO TROUGH 30MIN PRIOR TO AM DOSE ). Status: Acute (2) Cellulitis of right breast Assessment & Plan: IMPROVING. ON ABX . Status: Acute (3) History of breast cancer Status: Acute (4) Diabetes Status: Chronic (5) Hypertension Status: Chronic (6) Hypercholesterolemia Status: Acute
--- NOTE | 2017-08-10 15:24 | CP.PCM.PN ---
Subjective - Date & Time of Evaluation Date of Evaluation: 08/10/17 Time of Evaluation: 07:00 - Subjective Subjective: PT sp drainage of fluid collection in breast. pt feels well. Objective - Vital Signs/Intake and Output Vital Signs (last 24 hours): Temp Pulse Resp BP Pulse Ox 98.1 F 66 20 136/78 96 08/10/17 08:01 08/10/17 08:01 08/10/17 08:01 08/10/17 08:01 08/10/17 08:01 Intake and Output: 08/10/17 08/10/17 06:59 18:59 Intake Total 400 Balance 400 - Medications Medications: Current Medications Aspirin (Ecotrin) 81 mg PO DAILY [facility] Last Admin: 08/10/17 10:32 Dose: 81 mg Docusate Sodium (Colace) 100 mg PO BID [facility] Last Admin: 08/10/17 10:32 Dose: 100 mg Heparin Sodium (Porcine) (Heparin) 5,000 units SC Q8 [facility] Last Admin: 08/10/17 13:56 Dose: 5,000 units Hydrochlorothiazide (Hydrodiuril) 25 mg PO DAILY [facility] Last Admin: 08/10/17 10:33 Dose: 25 mg Clindamycin Phosphate 300 mg/ (Sodium Chloride) 52 mls @ 100 mls/hr IVPB Q8H [facility] PRN Reason: Protocol Last Admin: 08/10/17 13:09 Dose: 100 mls/hr Vancomycin/Sodium Chloride (Vancomycin 1 Gm/Ns 200 Ml) 1 gm in 200 mls @ 133 mls/hr IVPB Q12H [facility] PRN Reason: Protocol Stop: 08/13/17 20:01 Last Admin: 08/10/17 08:38 Dose: 133 mls/hr Aztreonam 1 gm/ Sodium (Chloride) 100 mls @ 100 mls/hr IVPB Q8H [facility] PRN Reason: Protocol Last Admin: 08/10/17 13:08 Dose: 100 mls/hr Sodium Chloride (Sodium Chloride 0.45%) 1,000 mls @ 50 mls/hr IV .Q20H [facility] Last Admin: 08/10/17 13:07 Dose: Not Given Insulin Aspart (Novolog) 0 unit SC ACHS [facility] PRN Reason: Protocol Last Admin: 08/10/17 13:04 Dose: 2 unit Insulin Glargine (Lantus) 45 unit SC HS [facility] Last Admin: 08/09/17 21:28 Dose: 45 units Losartan Potassium (Cozaar) 100 mg PO DAILY [facility] Last Admin: 08/10/17 10:32 Dose: 100 mg Oxycodone/Acetaminophen (Percocet 5/325 Mg Tab) 1 tab PO Q6H PRN PRN Reason: Pain, moderate (4-7) Stop: 08/12/17 19:30 Pantoprazole Sodium (Protonix Ec Tab) 40 mg PO DAILY [facility] Last Admin: 08/10/17 10:32 Dose: 40 mg Rosuvastatin Calcium (Crestor) 20 mg PO HS [facility] Last Admin: 08/09/17 21:28 Dose: 20 mg Tramadol HCl (Ultram) 50 mg PO Q8H [facility] Last Admin: 08/10/17 13:03 Dose: 50 mg - Labs Labs: 08/08/17 12:25 08/10/17 07:01 PT 12.0 SECONDS (9.7-12.2) 08/08/17 12:25 INR 1.1 08/08/17 12:25 APTT 34 SECONDS (21-34) 08/08/17 12:25 - Constitutional Appears: No Acute Distress - Eye Exam Eye Exam: Normal appearance - ENT Exam ENT Exam: Mucous Membranes Moist - Respiratory Exam Respiratory Exam: Clear to Ausculation Bilateral - Cardiovascular Exam Cardiovascular Exam: REGULAR RHYTHM, RRR, +S1, +S2. absent: JVD - Extremities Exam Extremities Exam: Full ROM Assessment and Plan - Assessment and Plan (Free Text) Assessment: breast cellulilits fluid collection drained and sent for c and s abx per ID awaiting cultures
[2017-08-10] MEDS: (Lantus) Insulin Glargine, Recombinant SC SCH (22:12)
[2017-08-11] MEDS: Aztreonam 1 GM in Sodium Chloride 0.9% 100 ML IVPB SCH ×3 (03:11→18:00)
[2017-08-11] MEDS: Clindamycin 300 MG in Sodium Chloride 0.9% 50 ML IVPB SCH ×3 (03:12→19:00)
[2017-08-11] MEDS: (Novolog) Insulin Aspart, Recombinant 100 u/ml 10 ml vial SC SCH ×4 (07:54→21:57)
[2017-08-11] MEDS: Vancomycin 1 gm/NS 200 ml 1 GM/200 ML BAG IVPB SCH ×2 (08:10→19:43)
[2017-08-11 08:18] LABS: BASO % 0.7 % (0.0-2.0); EOS # 0.1 K/uL (0.0-0.7); EOS % 1.8 % (0.0-4.0); LYMPH # 1.9 K/uL (1.0-4.3); LYMPH % 27.7 % (20.0-40.0); MEAN CELL VOLUME 93.9 fL (81.0-99.0); MEAN CORPUSCULAR HEMOGLOBIN 31.6 pg (27.0-31.0); MEAN CORPUSCULAR HGB CONC 33.6 g/dL (33.0-37.0); MEAN PLATELET VOLUME 8.6 fL (7.2-11.7); MONO # 0.6 K/uL (0.0-0.8); MONO % 9.6 % (0.0-10.0); NEUT % 60.2 % (50.0-75.0); RBC 4.44 Mil/uL (3.80-5.20); RED CELL DISTRIBUTION WIDTH 14.8 % (11.5-14.5); WHITE BLOOD COUNT 6.7 K/uL (4.8-10.8)
[2017-08-11] MEDS: Pantoprazole 40 mg EC Tab PO SCH (10:28)
[2017-08-11] MEDS: Sodium Chloride 0.45% 1,000 ML IV SCH ×2 (11:21→14:13)
--- NOTE | 2017-08-11 16:21 | CP.PCM.PN ---
Subjective - Date & Time of Evaluation Date of Evaluation: 08/11/17 Time of Evaluation: 16:21 - Subjective Subjective: Pt feels better less swelling sp drainage by IR yesterday breast not draining today Objective - Vital Signs/Intake and Output Vital Signs (last 24 hours): Temp Pulse Resp BP Pulse Ox 98.1 F 68 20 105/58 L 96 08/11/17 15:51 08/11/17 15:51 08/11/17 15:51 08/11/17 15:51 08/11/17 15:51 Intake and Output: 08/11/17 08/11/17 06:59 18:59 Intake Total 900 700 Balance 900 700 - Medications Medications: Current Medications Aspirin (Ecotrin) 81 mg PO DAILY [facility] Last Admin: 08/11/17 10:28 Dose: 81 mg Docusate Sodium (Colace) 100 mg PO BID [facility] Last Admin: 08/11/17 10:28 Dose: 100 mg Heparin Sodium (Porcine) (Heparin) 5,000 units SC Q8 [facility] Last Admin: 08/11/17 14:12 Dose: 5,000 units Clindamycin Phosphate 300 mg/ (Sodium Chloride) 52 mls @ 100 mls/hr IVPB Q8H [facility] PRN Reason: Protocol Last Admin: 08/11/17 12:35 Dose: 100 mls/hr Vancomycin/Sodium Chloride (Vancomycin 1 Gm/Ns 200 Ml) 1 gm in 200 mls @ 133 mls/hr IVPB Q12H [facility] PRN Reason: Protocol Stop: 08/13/17 20:01 Last Admin: 08/11/17 08:10 Dose: 133 mls/hr Aztreonam 1 gm/ Sodium (Chloride) 100 mls @ 100 mls/hr IVPB Q8H [facility] PRN Reason: Protocol Last Admin: 08/11/17 10:28 Dose: 100 mls/hr Sodium Chloride (Sodium Chloride 0.45%) 1,000 mls @ 50 mls/hr IV .Q20H [facility] Last Admin: 08/11/17 14:13 Dose: Not Given Insulin Aspart (Novolog) 0 unit SC ACHS [facility] PRN Reason: Protocol Last Admin: 08/11/17 12:29 Dose: 3 unit Insulin Glargine (Lantus) 45 unit SC HS [facility] Last Admin: 08/10/17 22:12 Dose: 45 units Losartan Potassium (Cozaar) 100 mg PO DAILY [facility] Last Admin: 08/11/17 10:28 Dose: 100 mg Oxycodone/Acetaminophen (Percocet 5/325 Mg Tab) 1 tab PO Q6H [facility] PRN Reason: Pain, moderate (4-7) Stop: 08/12/17 19:30 Pantoprazole Sodium (Protonix Ec Tab) 40 mg PO DAILY [facility] Last Admin: 08/11/17 10:28 Dose: 40 mg Rosuvastatin Calcium (Crestor) 20 mg PO HS [facility] Last Admin: 08/10/17 22:11 Dose: 20 mg Tramadol HCl (Ultram) 50 mg PO Q8H [facility] Last Admin: 08/11/17 11:30 Dose: 50 mg - Labs Labs: 08/11/17 07:59 08/10/17 07:01 PT 12.0 SECONDS (9.7-12.2) 08/08/17 12:25 INR 1.1 08/08/17 12:25 APTT 34 SECONDS (21-34) 08/08/17 12:25 - Constitutional Appears: Well, Non-toxic - Eye Exam Eye Exam: Normal appearance - ENT Exam ENT Exam: Mucous Membranes Moist - Cardiovascular Exam Cardiovascular Exam: REGULAR RHYTHM. absent: JVD - GI/Abdominal Exam GI & Abdominal Exam: Soft, Normal Bowel Sounds. absent: Tenderness (right breast softer, less warmth and redness) Assessment and Plan - Assessment and Plan (Free Text) Assessment: staph growing on culure sp abscess drainage looking better cont iv abx cbc PO abx soon bp on the low side dc htcz
[2017-08-11] MEDS: (Lantus) Insulin Glargine, Recombinant SC SCH (21:36)
--- NOTE | 2017-08-11 22:50 | CP.PCM.PN ---
Subjective - Date & Time of Evaluation Date of Evaluation: 08/11/17 Time of Evaluation: 22:50 - Subjective Subjective: CHIEF COMPLAINTS TODAY : afebrile,VSS LESS PAIN RT BREAST lESS ERYTHEMA AND CELLULITIS S/P ASPIRATION RT BREAST COLLECTION BY IR . 08/10/17 ROS. HEENT : N. Resp : No SOB wheezing, cough Cardio : No CP, PND orthopnea GI : No abd. 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 Musculoskel : N Ext. : Pedal pulses intact, no edema or calf pain Derm : N Psych : N. PE. Pt. is alert awake in no distress. V.S As noted in the chart Head ,ear nose,throat and eyes : Normal. Neck : Supple with normal carotids. Lungs: Clear air entry. Heart : S1 & S2 normal . . No murmur. S4 + Abd : Soft non tender with normal bowel sounds. Neuro : Moves all ext. with no localized deficit. Ext : No edema with intact pulses. Neg. calf tenderness Derm : RT. BREAST EDEMATOUS/INDURATED WITH ERYTHEMA AND CELLULITIS IMPROVING MINIMAL DRAINAGE ON THE DRESSING Radiology/Labs . WOUND CULTURES +VE GNR / STAPH COAGULASE NEGATIVE. VANCO TROUGH ; 13.0 -OK. RENAL FUNCTION OK ULTRASOUND RIGHT BREAST NOTED 08/08/17. 7.2 CM COLLECTION ? ABSCESS/VS SEROMA. Objective - Vital Signs/Intake and Output Vital Signs (last 24 hours): Temp Pulse Resp BP Pulse Ox 98.1 F 68 20 105/58 L 96 08/11/17 15:51 08/11/17 15:51 08/11/17 15:51 08/11/17 15:51 08/11/17 15:51 Intake and Output: 08/11/17 08/12/17 18:59 06:59 Intake Total 700 950 Balance 700 950 - Medications Medications: Current Medications Aspirin (Ecotrin) 81 mg PO DAILY [facility] Last Admin: 08/11/17 10:28 Dose: 81 mg Docusate Sodium (Colace) 100 mg PO BID [facility] Last Admin: 08/11/17 18:00 Dose: 100 mg Clindamycin Phosphate 300 mg/ (Sodium Chloride) 52 mls @ 100 mls/hr IVPB Q8H [facility] PRN Reason: Protocol Last Admin: 08/11/17 19:00 Dose: 100 mls/hr Vancomycin/Sodium Chloride (Vancomycin 1 Gm/Ns 200 Ml) 1 gm in 200 mls @ 133 mls/hr IVPB Q12H [facility] PRN Reason: Protocol Stop: 08/13/17 20:01 Last Admin: 08/11/17 19:43 Dose: 133 mls/hr Aztreonam 1 gm/ Sodium (Chloride) 100 mls @ 100 mls/hr IVPB Q8H [facility] PRN Reason: Protocol Last Admin: 08/11/17 18:00 Dose: 100 mls/hr Sodium Chloride (Sodium Chloride 0.45%) 1,000 mls @ 50 mls/hr IV .Q20H [facility] Last Admin: 08/11/17 14:13 Dose: Not Given Insulin Aspart (Novolog) 0 unit SC ACHS [facility] PRN Reason: Protocol Last Admin: 08/11/17 21:57 Dose: Not Given Insulin Glargine (Lantus) 45 unit SC [facility] Last Admin: 08/11/17 21:36 Dose: 45 units Losartan Potassium (Cozaar) 100 mg PO DAILY [facility] Last Admin: 08/11/17 10:28 Dose: 100 mg Oxycodone/Acetaminophen (Percocet 5/325 Mg Tab) 1 tab PO Q6H PRN PRN Reason: Pain, moderate (4-7) Stop: 08/12/17 19:30 Pantoprazole Sodium (Protonix Ec Tab) 40 mg PO DAILY [facility] Last Admin: 08/11/17 10:28 Dose: 40 mg Rosuvastatin Calcium (Crestor) 20 mg PO [facility] Last Admin: 08/11/17 21:36 Dose: 20 mg Tramadol HCl (Ultram) 50 mg PO Q8H [facility] Last Admin: 08/11/17 19:50 Dose: 50 mg - Labs Labs: 08/11/17 07:59 08/10/17 07:01 PT 12.0 SECONDS (9.7-12.2) 08/08/17 12:25 INR 1.1 08/08/17 12:25 APTT 34 SECONDS (21-34) 08/08/17 12:25 Assessment and Plan (1) Breast abscess Assessment & Plan: F/U WOUND CULTURES AND ASPIRATE . CONTINUE iv VANCOMYCIN 1 G EVERY 12 HOURLY 08/08/17. . CONTINUE iv AZACTAM 1 G EVERY 8 HOURLY FOR GRAM-NEGATIVE COVERAGE WHILE AWAITING CULTURES. . 08/08/17 . CONTINUE iv CLEOCIN 300 MG EVERY 8 HOURLY. 08/08/17. . WILL ADJUST ABX AFTER FINAL IDENTIFICATION OF CULTURES. ' Status: Acute (2) Cellulitis of right breast Assessment & Plan: IMPROVING. ON ABX . Status: Acute (3) History of breast cancer Status: Acute (4) Diabetes Status: Chronic (5) Hypertension Status: Chronic (6) Hypercholesterolemia Status: Acute
[2017-08-12] MEDS: Aztreonam 1 GM in Sodium Chloride 0.9% 100 ML IVPB SCH ×3 (03:17→19:26)
[2017-08-12] MEDS: Clindamycin 300 MG in Sodium Chloride 0.9% 50 ML IVPB SCH ×3 (03:17→20:20)
[2017-08-12] MEDS: Sodium Chloride 0.45% 1,000 ML IV SCH (04:22)
[2017-08-12] MEDS: (Novolog) Insulin Aspart, Recombinant 100 u/ml 10 ml vial SC SCH ×4 (07:31→21:01)
[2017-08-12] MEDS: Vancomycin 1 gm/NS 200 ml 1 GM/200 ML BAG IVPB SCH ×2 (07:37→21:25)
[2017-08-12 08:47] LABS: EOS # 0.2 K/uL (0.0-0.7); EOS % 2.9 % (0.0-4.0); LYMPH # 1.6 K/uL (1.0-4.3); LYMPH % 30.5 % (20.0-40.0); MEAN CELL VOLUME 96.1 fL (81.0-99.0); MEAN CORPUSCULAR HGB CONC 33.3 g/dL (33.0-37.0); MEAN PLATELET VOLUME 8.4 fL (7.2-11.7); MONO # 0.6 K/uL (0.0-0.8); MONO % 10.9 % (0.0-10.0); NEUT # 2.9 K/uL (1.8-7.0); NEUT % 54.7 % (50.0-75.0); NRBC % 0.2 % (0.0-2.0); RBC 4.36 Mil/uL (3.80-5.20); RED CELL DISTRIBUTION WIDTH 14.8 % (11.5-14.5); WHITE BLOOD COUNT 5.2 K/uL (4.8-10.8)
[2017-08-12 08:49] LABS: BLOOD UREA NITROGEN 12 mg/dL (7-17); CALCIUM 8.6 mg/dl (8.6-10.4); GFR AFRICAN-AMERICAN > 60; GFR NON-AFRICAN AMERICAN > 60
[2017-08-12] MEDS: Pantoprazole 40 mg EC Tab PO SCH (11:45)
--- NOTE | 2017-08-12 12:45 | CP.PCM.PN ---
Subjective - Date & Time of Evaluation Date of Evaluation: 08/12/17 Time of Evaluation: 12:45 - Subjective Subjective: PT FEELING OK no new complaints breast draining today denies fever Objective - Vital Signs/Intake and Output Vital Signs (last 24 hours): Temp Pulse Resp BP Pulse Ox 98.5 F 65 20 144/68 98 08/12/17 09:00 08/12/17 09:00 08/12/17 09:00 08/12/17 09:00 08/12/17 09:00 Intake and Output: 08/12/17 08/12/17 06:59 18:59 Intake Total 950 Balance 950 - Medications Medications: Current Medications Aspirin (Ecotrin) 81 mg PO DAILY [facility] Last Admin: 08/12/17 11:45 Dose: 81 mg Docusate Sodium (Colace) 100 mg PO BID [facility] Last Admin: 08/12/17 11:44 Dose: Not Given Clindamycin Phosphate 300 mg/ (Sodium Chloride) 52 mls @ 100 mls/hr IVPB Q8H [facility] PRN Reason: Protocol Last Admin: 08/12/17 11:48 Dose: 100 mls/hr Vancomycin/Sodium Chloride (Vancomycin 1 Gm/Ns 200 Ml) 1 gm in 200 mls @ 133 mls/hr IVPB Q12H [facility] PRN Reason: Protocol Stop: 08/13/17 20:01 Last Admin: 08/12/17 07:37 Dose: 133 mls/hr Aztreonam 1 gm/ Sodium (Chloride) 100 mls @ 100 mls/hr IVPB Q8H [facility] PRN Reason: Protocol Last Admin: 08/12/17 11:49 Dose: 100 mls/hr Sodium Chloride (Sodium Chloride 0.45%) 1,000 mls @ 50 mls/hr IV .Q20H [facility] Last Admin: 08/11/17 14:13 Dose: Not Given Insulin Aspart (Novolog) 0 unit SC ACHS [facility] PRN Reason: Protocol Last Admin: 08/12/17 11:45 Dose: 1 unit Insulin Glargine (Lantus) 45 unit SC HS [facility] Last Admin: 08/11/17 21:36 Dose: 45 units Losartan Potassium (Cozaar) 100 mg PO DAILY [facility] Last Admin: 08/12/17 11:44 Dose: 100 mg Oxycodone/Acetaminophen (Percocet 5/325 Mg Tab) 1 tab PO Q6H PRN PRN Reason: Pain, moderate (4-7) Stop: 08/12/17 19:30 Pantoprazole Sodium (Protonix Ec Tab) 40 mg PO DAILY [facility] Last Admin: 08/12/17 11:45 Dose: 40 mg Rosuvastatin Calcium (Crestor) 20 mg PO HS [facility] Last Admin: 08/11/17 21:36 Dose: 20 mg Tramadol HCl (Ultram) 50 mg PO Q8H [facility] Last Admin: 08/12/17 11:48 Dose: 50 mg - Labs Labs: 08/12/17 08:33 08/12/17 08:33 PT 12.0 SECONDS (9.7-12.2) 08/08/17 12:25 INR 1.1 08/08/17 12:25 APTT 34 SECONDS (21-34) 08/08/17 12:25 - Constitutional Appears: Non-toxic - Eye Exam Eye Exam: Normal appearance - ENT Exam ENT Exam: Mucous Membranes Moist - Respiratory Exam Respiratory Exam: Clear to Ausculation Bilateral - Cardiovascular Exam Cardiovascular Exam: REGULAR RHYTHM, RRR, +S1, +S2. absent: JVD - Extremities Exam Extremities Exam: absent: Pedal Edema (right breast draining today coffee color fluid) Assessment and Plan - Assessment and Plan (Free Text) Plan: cellulitis of right breast sp recent surgery for metastic ca fluid drained by IR seroma vs abscess cont iv abx bp stable awaing for ID for PO anbx recommedations when appropriate possible dc home on Monday on PO anbx
--- NOTE | 2017-08-12 19:54 | CP.PCM.PN ---
Subjective - Date & Time of Evaluation Date of Evaluation: 08/12/17 Time of Evaluation: 19:54 - Subjective Subjective: CHIEF COMPLAINTS TODAY : afebrile,VSS LESS PAIN RT BREAST lESS ERYTHEMA AND CELLULITIS breast still draining a lot S/P ASPIRATION RT BREAST COLLECTION BY IR . 08/10/17 ROS. HEENT : N. Resp : No SOB wheezing, cough Cardio : No CP, PND orthopnea GI : No abd. 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 Musculoskel : N Ext. : Pedal pulses intact, no edema or calf pain Derm : N Psych : N. PE. Pt. is alert awake in no distress. V.S As noted in the chart Head ,ear nose,throat and eyes : Normal. Neck : Supple with normal carotids. Lungs: Clear air entry. Heart : S1 & S2 normal . . No murmur. S4 + Abd : Soft non tender with normal bowel sounds. Neuro : Moves all ext. with no localized deficit. Ext : No edema with intact pulses. Neg. calf tenderness Derm : RT. BREAST EDEMATOUS/INDURATED WITH ERYTHEMA AND CELLULITIS IMPROVING much DRAINAGE, dressing wet Radiology/Labs . WOUND CULTURES +VE kleibsiella pneumonia-pansensitive / STAPH COAGULASE NEGATIVE. VANCO TROUGH ; 13.0 -OK. RENAL FUNCTION OK ULTRASOUND RIGHT BREAST NOTED 08/08/17. 7.2 CM COLLECTION ? ABSCESS/VS SEROMA. Objective - Vital Signs/Intake and Output Vital Signs (last 24 hours): Temp Pulse Resp BP Pulse Ox 98.2 F 74 19 118/69 96 08/12/17 16:00 08/12/17 16:00 08/12/17 16:00 08/12/17 16:00 08/12/17 16:00 - Medications Medications: Current Medications Aspirin (Ecotrin) 81 mg PO [facility]ILY [facility] Last Admin: 08/12/17 11:45 Dose: 81 mg Docusate Sodium (Colace) 100 mg PO BID [facility] Last Admin: 08/12/17 17:12 Dose: Not Given Clindamycin Phosphate 300 mg/ (Sodium Chloride) 52 mls @ 100 mls/hr IVPB Q8H [facility] PRN Reason: Protocol Last Admin: 08/12/17 11:48 Dose: 100 mls/hr Vancomycin/Sodium Chloride (Vancomycin 1 Gm/Ns 200 Ml) 1 gm in 200 mls @ 133 mls/hr IVPB Q12H [facility] PRN Reason: Protocol Stop: 08/13/17 20:01 Last Admin: 08/12/17 07:37 Dose: 133 mls/hr Aztreonam 1 gm/ Sodium (Chloride) 100 mls @ 100 mls/hr IVPB Q8H [facility] PRN Reason: Protocol Last Admin: 08/12/17 19:26 Dose: 100 mls/hr Insulin Aspart (Novolog) 0 unit SC [facility] PRN Reason: Protocol Last Admin: 08/12/17 17:13 Dose: 2 unit Insulin Glargine (Lantus) 45 unit SC [facility] Last Admin: 08/11/17 21:36 Dose: 45 units Losartan Potassium (Cozaar) 100 mg PO DAILY [facility] Last Admin: 08/12/17 11:44 Dose: 100 mg Pantoprazole Sodium (Protonix Ec Tab) 40 mg PO DAILY [facility] Last Admin: 08/12/17 11:45 Dose: 40 mg Rosuvastatin Calcium (Crestor) 20 mg PO HS [facility] Last Admin: 08/11/17 21:36 Dose: 20 mg Tramadol HCl (Ultram) 50 mg PO Q8H [facility] Last Admin: 08/12/17 19:26 Dose: 50 mg - Labs Labs: 08/12/17 08:33 08/12/17 08:33 PT 12.0 SECONDS (9.7-12.2) 08/08/17 12:25 INR 1.1 08/08/17 12:25 APTT 34 SECONDS (21-34) 08/08/17 12:25 Assessment and Plan (1) Breast abscess Assessment & Plan: . CONTINUE iv VANCOMYCIN 1 G EVERY 12 HOURLY 08/08/17. . CONTINUE iv AZACTAM 1 G EVERY 8 HOURLY FOR GRAM-NEGATIVE COVERAGE WHILE AWAITING CULTURES. . 08/08/17 . CONTINUE iv CLEOCIN 300 MG EVERY 8 HOURLY. 08/08/17. . dressing change PRN NEEDED. CONTINUE PRESENT THERAPHY. WILL SWITCH TO PO THERAPHY ON MONDAY PRIOR TO DISCHARGE Status: Acute (2) Cellulitis of right breast Status: Acute (3) History of breast cancer Status: Acute (4) Diabetes Status: Chronic (5) Hypertension Status: Chronic (6) Hypercholesterolemia Status: Acute
[2017-08-12] MEDS: (Lantus) Insulin Glargine, Recombinant SC SCH (21:29)
[2017-08-13 01:48] VITALS: RESP 20
[2017-08-13] MEDS: Aztreonam 1 GM in Sodium Chloride 0.9% 100 ML IVPB SCH ×2 (03:03→11:59)
[2017-08-13] MEDS: Clindamycin 300 MG in Sodium Chloride 0.9% 50 ML IVPB SCH ×2 (03:04→12:01)
[2017-08-13] MEDS: (Novolog) Insulin Aspart, Recombinant 100 u/ml 10 ml vial SC SCH ×4 (07:32→21:23)
[2017-08-13] MEDS: Vancomycin 1 gm/NS 200 ml 1 GM/200 ML BAG IVPB SCH (07:59)
[2017-08-13] MEDS: Pantoprazole 40 mg EC Tab PO SCH (11:07)
--- NOTE | 2017-08-13 14:35 | CP.PCM.PN ---
Subjective - Date & Time of Evaluation Date of Evaluation: 08/13/17 Time of Evaluation: 14:35 - Subjective Subjective: AFEBRILE, CLINICALL IMPROVING SLOWLY. STILL W DRAINAGE. IV INFILTERATED. WILL SWITCH TO PO ABX . CIPRO 750 MG PO BID X 10DAYS. CLEOCIN 300MG PO TID X 10DAYS Objective - Vital Signs/Intake and Output Vital Signs (last 24 hours): Temp Pulse Resp BP Pulse Ox 97.9 F 70 20 114/70 96 08/13/17 00:00 08/13/17 00:00 08/13/17 00:00 08/13/17 00:00 08/13/17 00:00 - Medications Medications: Current Medications Aspirin (Ecotrin) 81 mg PO DAILY [facility] Last Admin: 08/13/17 11:07 Dose: 81 mg Ciprofloxacin (Cipro) 500 mg PO BID [facility] PRN Reason: Protocol Clindamycin HCl (Cleocin) 300 mg PO TID [facility] Docusate Sodium (Colace) 100 mg PO BID [facility] Last Admin: 08/13/17 11:07 Dose: Not Given Insulin Aspart (Novolog) 0 unit SC [facility] PRN Reason: Protocol Last Admin: 08/13/17 11:58 Dose: 1 unit Insulin Glargine (Lantus) 45 unit SC [facility] Last Admin: 08/12/17 21:29 Dose: 45 units Losartan Potassium (Cozaar) 100 mg PO DAILY [facility] Last Admin: 08/13/17 11:07 Dose: 100 mg Pantoprazole Sodium (Protonix Ec Tab) 40 mg PO DAILY [facility] Last Admin: 08/13/17 11:07 Dose: 40 mg Rosuvastatin Calcium (Crestor) 20 mg PO HS [facility] Last Admin: 08/12/17 21:29 Dose: 20 mg Tramadol HCl (Ultram) 50 mg PO Q8H [facility] Last Admin: 08/13/17 11:07 Dose: 50 mg - Labs Labs: 08/12/17 08:33 08/12/17 08:33 PT 12.0 SECONDS (9.7-12.2) 08/08/17 12:25 INR 1.1 08/08/17 12:25 APTT 34 SECONDS (21-34) 08/08/17 12:25 - Constitutional Appears: No Acute Distress - Head Exam Head Exam: NORMAL INSPECTION - Eye Exam Eye Exam: EOMI, PERRL - ENT Exam ENT Exam: Normal Oropharynx - Respiratory Exam Respiratory Exam: Chest Wall Tenderness (RT.BREAST), Clear to Ausculation Bilateral - Cardiovascular Exam Cardiovascular Exam: REGULAR RHYTHM, +S1, +S2 - GI/Abdominal Exam GI & Abdominal Exam: Soft, Normal Bowel Sounds - Extremities Exam Extremities Exam: Normal Capillary Refill. absent: Calf Tenderness, Pedal Edema - Neurological Exam Neurological Exam: Alert, Awake, CN II-XII Intact - Psychiatric Exam Psychiatric exam: Normal Mood - Skin Skin Exam: Erythema (RT .BREAST IMPROVING, +VE DRAINAGE LOWER INCISION SITE.), Normal Color, Warm Assessment and Plan (1) Breast abscess Assessment & Plan: IV INFILTERATED. DC IV AZACTAM DC IV VANCOMYCIN. DC IV CLEOCIN. WILL SWITCH TO PO ABX . CIPRO 750 MG PO BID X 10DAYS. 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 Status: Acute (2) Cellulitis of right breast Assessment & Plan: IMPROVING . STILL WITH SERO SANGUIOUS DRAINAGE. LWC AND CHANGE OF DRESSING PRN Status: Acute (3) History of breast cancer Status: Acute (4) Diabetes Status: Chronic (5) Hypertension Status: Chronic (6) Hypercholesterolemia Status: Acute
[2017-08-13] MEDS: Lactobacillus Acidophilus 500 MU Cap PO SCH (17:11)
[2017-08-13] MEDS: (Lantus) Insulin Glargine, Recombinant SC SCH (21:12)
[2017-08-14 01:43] VITALS: O2SAT 97
[2017-08-14] MEDS: (Novolog) Insulin Aspart, Recombinant 100 u/ml 10 ml vial SC SCH ×2 (08:00→12:23)
[2017-08-14 09:03] VITALS: BP 118/72; PULSE 76; TEMP 98.3
[2017-08-14] MEDS: Pantoprazole 40 mg EC Tab PO SCH (10:43)
[2017-08-14] MEDS: Lactobacillus Acidophilus 500 MU Cap PO SCH (10:43)
--- NOTE | 2017-08-14 11:46 | CP.PCM.PN ---
Subjective - Date & Time of Evaluation Date of Evaluation: 08/14/17 Time of Evaluation: 11:46 - Subjective Subjective: AFEBRILE, CLINICALL IMPROVING SLOWLY. STILL W DRAINAGE. IV INFILTERATED. WILL SWITCH TO PO ABX . CIPRO 750 MG PO BID X 10DAYS. CLEOCIN 300MG PO TID X 10DAYS Objective - Vital Signs/Intake and Output Vital Signs (last 24 hours): Temp Pulse Resp BP Pulse Ox 98.3 F 76 20 118/72 97 08/14/17 08:00 08/14/17 08:00 08/14/17 08:00 08/14/17 08:00 08/14/17 08:00 - Medications Medications: Current Medications Aspirin (Ecotrin) 81 mg PO DAILY [facility] Last Admin: 08/14/17 10:43 Dose: 81 mg Ciprofloxacin (Cipro) 750 mg PO BID [facility] PRN Reason: Protocol Stop: 08/23/17 18:01 Last Admin: 08/14/17 10:43 Dose: 750 mg Clindamycin HCl (Cleocin) 300 mg PO TID [facility] Last Admin: 08/14/17 10:43 Dose: 300 mg Docusate Sodium (Colace) 100 mg PO BID [facility] Last Admin: 08/14/17 10:43 Dose: 100 mg Insulin Aspart (Novolog) 0 unit SC [facility] PRN Reason: Protocol Last Admin: 08/14/17 08:00 Dose: Not Given Insulin Glargine (Lantus) 45 unit SC HS [facility] Last Admin: 08/13/17 21:12 Dose: 45 units Lactobacillus Acidophilus (Bacid Acidophilus) 1 cap PO BID [facility] Last Admin: 08/14/17 10:43 Dose: 1 cap Losartan Potassium (Cozaar) 100 mg PO DAILY [facility] Last Admin: 08/14/17 10:43 Dose: 100 mg Pantoprazole Sodium (Protonix Ec Tab) 40 mg PO DAILY [facility] Last Admin: 08/14/17 10:43 Dose: 40 mg Rosuvastatin Calcium (Crestor) 20 mg PO HS [facility] Last Admin: 08/13/17 21:12 Dose: 20 mg Tramadol HCl (Ultram) 50 mg PO Q8H [facility] Last Admin: 08/14/17 10:43 Dose: 50 mg - Labs Labs: 08/12/17 08:33 08/12/17 08:33 PT 12.0 SECONDS (9.7-12.2) 08/08/17 12:25 INR 1.1 08/08/17 12:25 APTT 34 SECONDS (21-34) 08/08/17 12:25 - Constitutional Appears: No Acute Distress - Head Exam Head Exam: NORMAL INSPECTION - Eye Exam Eye Exam: EOMI, PERRL - ENT Exam ENT Exam: Normal Oropharynx - Respiratory Exam Respiratory Exam: Clear to Ausculation Bilateral - Cardiovascular Exam Cardiovascular Exam: REGULAR RHYTHM, +S1, +S2 - GI/Abdominal Exam GI & Abdominal Exam: Soft, Normal Bowel Sounds. absent: Organomegaly - Extremities Exam Extremities Exam: absent: Calf Tenderness, Pedal Edema - Neurological Exam Neurological Exam: Alert, Awake, CN II-XII Intact, Oriented x3 - Psychiatric Exam Psychiatric exam: Normal Mood - Skin Skin Exam: Normal Color, Warm (RT .BREAST CELLULITUS IMPROVING . LESS DRAINAGE.) Assessment and Plan (1) Breast abscess Status: Acute (2) Cellulitis of right breast Status: Acute (3) History of breast cancer Status: Acute (4) Diabetes Status: Chronic (5) Hypertension Status: Chronic (6) Hypercholesterolemia Status: Acute
--- NOTE | 2017-08-14 17:22 | CP.PCM.DIS ---
Provider - Provider Date of Admission: 08/08/17 13:25 Attending physician: Nicole Yung MD Time Spent in preparation of Discharge (in minutes): 30 Hospital Course - Lab Results Lab Results: Micro Results 08/08/17 12:30 Blood Blood Culture - Final NO GROWTH AFTER 5 DAYS 08/08/17 12:30 Blood Gram Stain - Final TEST NOT PERFORMED 08/08/17 12:15 Blood Blood Culture - Final NO GROWTH AFTER 5 DAYS 08/08/17 12:15 Blood Gram Stain - Final TEST NOT PERFORMED 08/10/17 12:00 Other: Please Indicate Gram Stain - Final 08/10/17 12:00 Other: Please Indicate Body Fluid Culture - Final Corynebacterium Species 08/09/17 20:11 Breast - Right Gram Stain - Final 08/09/17 20:11 Breast - Right Wound Culture - Final Coagulase Neg Staphylococcus Klebsiella Pneumoniae Ssp Pneu Most Recent Lab Values WBC 5.2 K/uL (4.8-10.8) 08/12/17 08:33 RBC 4.36 Mil/uL (3.80-5.20) 08/12/17 08:33 Hgb 14.0 g/dL (11.0-16.0) 08/12/17 08:33 Hct 41.8 % (34.0-47.0) 08/12/17 08:33 MCV 96.1 fL (81.0-99.0) D 08/12/17 08:33 MCH 32.0 pg (27.0-31.0) H 08/12/17 08:33 MCHC 33.3 g/dL (33.0-37.0) 08/12/17 08:33 RDW 14.8 % (11.5-14.5) H 08/12/17 08:33 Plt Count 182 K/uL (130-400) 08/12/17 08:33 MPV 8.4 fL (7.2-11.7) 08/12/17 08:33 Neut % (Auto) 54.7 % (50.0-75.0) 08/12/17 08:33 Lymph % (Auto) 30.5 % (20.0-40.0) 08/12/17 08:33 [place] % (Auto) 10.9 % (0.0-10.0) H 08/12/17 08:33 Eos % (Auto) 2.9 % (0.0-4.0) 08/12/17 08:33 Baso % (Auto) 1.0 % (0.0-2.0) 08/12/17 08:33 Neut # (Auto) 2.9 K/uL (1.8-7.0) 08/12/17 08:33 Lymph # (Auto) 1.6 K/uL (1.0-4.3) 08/12/17 08:33 [place] # (Auto) 0.6 K/uL (0.0-0.8) 08/12/17 08:33 Eos # (Auto) 0.2 K/uL (0.0-0.7) 08/12/17 08:33 Baso # (Auto) 0.0 K/uL (0.0-0.2) 08/12/17 08:33 PT 12.0 SECONDS (9.7-12.2) 08/08/17 12:25 INR 1.1 08/08/17 12:25 APTT 34 SECONDS (21-34) 08/08/17 12:25 Sodium 142 mmol/L (132-148) 08/12/17 08:33 Potassium 4.1 mmol/L (3.6-5.2) 08/12/17 08:33 Chloride 108 mmol/L (98-107) H 08/12/17 08:33 Carbon Dioxide 24 mmol/L (22-30) 08/12/17 08:33 Anion Gap 14 (10-20) 08/12/17 08:33 BUN 12 mg/dL (7-17) 08/12/17 08:33 Creatinine 0.5 mg/dL (0.7-1.2) L 08/12/17 08:33 Est GFR ( Amer) > 60 08/12/17 08:33 Est GFR (Non-Af Amer) > 60 08/12/17 08:33 POC Glucose (mg/dL) 169 mg/dL (65-110) H 08/14/17 11:45 Random Glucose 116 mg/dL (65-105) H 08/12/17 08:33 Calcium 8.6 mg/dl (8.6-10.4) 08/12/17 08:33 Total Bilirubin 0.6 mg/dL (0.2-1.3) 08/08/17 12:25 AST 47 U/L (14-36) H 08/08/17 12:25 ALT 41 U/L (9-52) 08/08/17 12:25 Alkaline Phosphatase 72 U/L (38-126) 08/08/17 12:25 Total Protein 7.9 g/dL (6.3-8.3) 08/08/17 12:25 Albumin 3.9 g/dL (3.5-5.0) 08/08/17 12:25 Globulin 4.0 gm/dL (2.2-3.9) H 08/08/17 12:25 Albumin/Globulin Ratio 1.0 (1.0-2.1) 08/08/17 12:25 Urine Color Straw (YELLOW) 08/08/17 14:06 Urine Clarity Clear (Clear) 08/08/17 14:06 Urine pH 6.0 (5.0-8.0) 08/08/17 14:06 Ur Specific [place] 1.012 (1.003-1.030) 08/08/17 14:06 Urine Protein Negative mg/dL (NEGATIVE) 08/08/17 14:06 Urine Glucose (UA) 3+ mg/dL (Normal) H 08/08/17 14:06 Urine Ketones Negative mg/dL (NEGATIVE) 08/08/17 14:06 Urine Blood 1+ (NEGATIVE) H 08/08/17 14:06 Urine Nitrate Negative (NEGATIVE) 08/08/17 14:06 Urine Bilirubin Negative (NEGATIVE) 08/08/17 14:06 Urine Urobilinogen Normal mg/dL (0.2-1.0) 08/08/17 14:06 Ur Leukocyte Esterase 1+ [place]/uL (Negative) H 08/08/17 14:06 Urine WBC (Auto) 13 /hpf (0-5) H 08/08/17 14:06 Urine RBC (Auto) 10 /hpf (0-3) H 08/08/17 14:06 Ur Squamous Epith Cells 6 /hpf (0-5) H 08/08/17 14:06 Urine Bacteria Rare (<OCC) 08/08/17 14:06 Vancomycin Trough 13.0 ug/mL (5.0-10.0) H 08/11/17 07:59 - Hospital Course Hospital Course: Pt admitted with breast cellulitis and discharge Us revealed a fluid collection It was drained by IR she was treated with IV abx as recommended by ID Blood cultures were negative Discharge Exam - Head Exam Head Exam: NORMAL INSPECTION - Eye Exam Eye Exam: Normal appearance - ENT Exam ENT Exam: Mucous Membranes Moist - Respiratory Exam Respiratory Exam: Chest Wall Tenderness (breast with decreased sweelling, redness and tenderness) Discharge Plan - Discharge Medications Prescriptions: Lactobacillus Acidophilus [Bacid Acidophilus] 1 cap PO BID #20 cap Ciprofloxacin [Cipro] 750 mg PO BID 10 Days tab Clindamycin [Cleocin] 300 mg PO TID 10 Days cap - Follow Up Plan Instructions: Cellulitis (DC) Referrals: Nicole Yung MD [Staff Provider] -
== END 2017-08-14 15:02 | disposition home or self-care (01) | DRG 607 ==
LOC: C.ER 11:21 → C.9E 13:25 → C.3T 14:06
PROVIDERS: ADMIT Internal Medicine; ATTEND Internal Medicine
PROC: 0H9T0ZZ Drainage of Right Breast, Open Approach (ICD-10-PCS; principal; 2017-08-10)
DX: C44.501 Unspecified malignant neoplasm of skin of breast (principal); I10 Essential (primary) hypertension; E11.9 Type 2 diabetes mellitus without complications; N61.1 Abscess of the breast and nipple; E78.00 Pure hypercholesterolemia, unspecified; E66.9 Obesity, unspecified; Z68.39 Body mass index [BMI] 39.0-39.9, adult

== ENCOUNTER 2017-09-01 12:28 | Inpatient (IN) | payer MEDICARE, MEDICAID ==
[2017-09-01 12:28] VITALS: BMI 39.0
--- NOTE | 2017-09-01 13:26 | C.PDOC ---
History Of Present Illness 71 y/o female with history of DM, HTN, HLD presents to ED with c/o of increased redness and pain to right breast. Patient had a lumpectomy on 07/18/17 secondary to right breast ductal metastatic CA. She was admitted to the hospital 08/08/17 for infection to wound area. Patient states pain and redness had improved, but for the last 2 days it returned. Pt saw her surgeon, Dr Gordon, last week, had a biopsy and given stronger dose of Cipro. Pt notes she has been on abx since her discahrge on 08/14/17. Denies fever, chills, chest pain, sob, nausea, vomiting or any other complaints at this time. Time Seen by Provider: 09/01/17 12:55 Chief Complaint (Nursing): Abnormal Skin Integrity History Per: Patient History/Exam Limitations: no limitations Onset/Duration Of Symptoms: Days Current Symptoms Are (Timing): Still Present Past Medical History Reviewed: Historical Data, Nursing Documentation, Vital Signs Vital Signs: Last Vital Signs Temp 98.7 F 09/01/17 17:06 Pulse 86 09/01/17 17:06 Resp 18 09/01/17 17:06 BP 155/85 H 09/01/17 17:06 Pulse Ox 100 09/01/17 17:06 - Medical History PMH: Arthritis (BACK), Diabetes, HTN, Hypercholesterolemia Surgical History: Cholecystectomy - [facility] Procedures APPLICATION OF SPLINT (11/12/14) DRAINAGE OF RIGHT BREAST, OPEN APPROACH (08/08/17) TETANUS TOXOID ADMINIST (08/14/13) Family History: States: No Known Family Hx - Social History Hx Tobacco Use: No Hx Alcohol Use: No Hx Substance Use: No - Immunization History Hx Tetanus Toxoid Vaccination: Yes Hx Influenza Vaccination: Yes Hx Pneumococcal Vaccination: No Review Of Systems Constitutional: Negative for: Fever, Chills Cardiovascular: Positive for: Other (breast pain) Gastrointestinal: Negative for: Nausea, Vomiting Skin: Negative for: Rash Physical Exam - Physical Exam Appears: Non-toxic, No Acute Distress Skin: Warm, Dry, No Rash Head: Atraumatic, Normacephalic Eye(s): bilateral: Normal Inspection, EOMI Nose: Normal Oral Mucosa: Moist Neck: Normal ROM, Supple Chest: Symmetrical, Tenderness (To right breast area), Other ((+) tenderness and swelling to the right breast with erythema. Incision healed, no discharge. ) Cardiovascular: Rhythm Regular Respiratory: Normal Breath Sounds, No Accessory Muscle Use, No Rales, No Rhonchi , No Wheezing Gastrointestinal/Abdominal: Soft, No Tenderness, No Guarding, No Rebound Extremity: Normal ROM Neurological/Psych: Oriented x3, Normal Speech ED Course And Treatment - Laboratory Results Result Diagrams: 09/01/17 13:57 09/01/17 13:57 O2 Sat by Pulse Oximetry: 99 (RA) Pulse Ox Interpretation: Normal Progress Note: Blood work, Blood culture ordered. IV fluids administered. Discussed case with Dr Gordon who noted pt can have cleocin rx and he will f/u in the office. On re-evaluation, pt notes she does not feel well and requests admission. Case discussed with Dr Yung, agreed upon admission. Disposition - Disposition Disposition: HOSPITALIZED Disposition Time: 16:00 Condition: STABLE - Clinical Impression Clinical Impression: Cellulitis of right breast, Failure of outpatient treatment, Breast abscess - PA / TACK MAKER / Resident Statement MD/DO has reviewed & agrees with the documentation as recorded. - Scribe Statement The provider has reviewed the documentation as recorded by the Luisibharika Rider All medical record entries made by the Luzmaria were at my direction and personally dictated by me. I have reviewed the chart and agree that the record accurately reflects my personal performance of the history, physical exam, medical decision making, and the department course for this patient. I have also personally directed, reviewed, and agree with the discharge instructions and disposition.
[2017-09-01 14:14] LABS: BASO # 0.1 K/uL (0.0-0.2); NRBC % 0.2 % (0.0-2.0)
[2017-09-01 14:31] LABS: ALB/GLOB RATIO 1.1 (1.0-2.1); ALBUMIN 4.1 g/dL (3.5-5.0); ALT/SGPT 52 U/L (9-52); AST/SGOT 82 U/L (14-36); BLOOD UREA NITROGEN 15 mg/dL (7-17); CALCIUM 9.4 mg/dl (8.6-10.4); GFR AFRICAN-AMERICAN > 60; GFR NON-AFRICAN AMERICAN > 60
[2017-09-01 14:40] LABS: EOS # 0.2 K/uL (0.0-0.7); EOS % 2.8 % (0.0-4.0); LYMPH % 24.8 % (20.0-40.0); MEAN CELL VOLUME 94.9 fL (81.0-99.0); MEAN CORPUSCULAR HEMOGLOBIN 31.8 pg (27.0-31.0); MEAN CORPUSCULAR HGB CONC 33.6 g/dL (33.0-37.0); MEAN PLATELET VOLUME 10.7 fL (7.2-11.7); MONO # 0.5 K/uL (0.0-0.8); MONO % 6.7 % (0.0-10.0); NEUT # 5.3 K/uL (1.8-7.0); NEUT % 64.7 % (50.0-75.0); RBC 4.41 Mil/uL (3.80-5.20); RED CELL DISTRIBUTION WIDTH 14.7 % (11.5-14.5)
[2017-09-01 14:43] LABS: WHITE BLOOD COUNT 8.1 K/uL (4.8-10.8)
--- NOTE | 2017-09-01 16:17 | CP.PCM.HP ---
History of Present Illness - History of Present Illness History of Present Illness: RIght breast pain and discharger PT is a 71 year old recently had lumpectomy. Pt was admitted with post op breast infection. She had a drainage and was treated with IV abx. PT went home on CLinda and Cipro. PT comes back with erythema and pain in the breast .She has been taking po abx with no help. Saw Dr. Gordon who increased cipro but no improvement. Pt has been taking Tramadol and Naprosyn for pain. Past Patient History - Infectious Disease Hx of Infectious Diseases: None - Past Medical History & Family History Past Medical History?: Yes - Past Social History Smoking Status: Never Smoked - CARDIAC Hx Hypercholesterolemia: Yes Hx Hypertension: Yes - PULMONARY Hx Respiratory Disorders: No - NEUROLOGICAL Hx Neurological Disorder: No Other/Comment: AAOX3 - HEENT Hx HEENT Problems: No Other/Comment: WEARS GLASSES - RENAL Hx Chronic Kidney Disease: No - ENDOCRINE/METABOLIC Hx Endocrine Disorders: Yes Hx Diabetes Mellitus Type 2: Yes - HEMATOLOGICAL/ONCOLOGICAL Hx Blood Disorders: Yes Hx Blood Transfusions: No Hx Cancer: Yes Other/Comment: Malignant neoplasm rt breast - INTEGUMENTARY Hx Dermatological Problems: No - MUSCULOSKELETAL/RHEUMATOLOGICAL Hx Arthritis: Yes (BACK) - GASTROINTESTINAL Hx Gastrointestinal Disorders: Yes - GENITOURINARY/GYNECOLOGICAL Hx Genitourinary Disorders: No - PSYCHIATRIC Hx Substance Use: No - SURGICAL HISTORY Hx Cholecystectomy: Yes - ANESTHESIA Hx Anesthesia: Yes Hx Anesthesia Reactions: No Hx Malignant Hyperthermia: No Meds Allergies/Adverse Reactions: Allergies Allergy/AdvReac Type Severity Reaction Status Date / Time amoxicillin [From Augmentin] Allergy RASH Verified 08/08/17 11:30 clavulanic acid Allergy RASH Verified 09/01/17 12:46 [From Augmentin] Results - Vital Signs Recent Vital Signs: Last Vital Signs Temp 98.4 F 09/01/17 15:06 Pulse 76 09/01/17 15:06 Resp 18 09/01/17 15:06 BP 148/80 09/01/17 15:06 Pulse Ox 100 09/01/17 15:06 - Labs Result Diagrams: 09/01/17 13:57 09/01/17 13:57 Labs: Laboratory Results - last 24 hr 09/01/17 09/01/17 13:57 13:57 WBC 8.1 D RBC 4.41 Hgb 14.0 Hct 41.8 MCV 94.9 MCH 31.8 H MCHC 33.6 RDW 14.7 H Plt Count 180 MPV 10.7 Neut % (Auto) 64.7 Lymph % (Auto) 24.8 [place] % (Auto) 6.7 Eos % (Auto) 2.8 Baso % (Auto) 1.0 Neut # (Auto) 5.3 Lymph # (Auto) 2.0 [place] # (Auto) 0.5 Eos # (Auto) 0.2 Baso # (Auto) 0.1 Differential Comment Sodium 144 Potassium 4.4 Chloride 107 Carbon Dioxide 26 Anion Gap 15 BUN 15 Creatinine 0.5 L Est GFR ( Amer) > 60 Est GFR (Non-Af Amer) > 60 Random Glucose 225 H Calcium 9.4 Total Bilirubin 0.8 AST 82 H D ALT 52 D Alkaline Phosphatase 107 Total Protein 7.8 Albumin 4.1 Globulin 3.8 Albumin/Globulin Ratio 1.1 Assessment & Plan - Assessment and Plan (Free Text) Assessment: breast cellulitis HTn braeast ca admit culture iD consult
--- NOTE | 2017-09-01 16:52 | US ---
PROCEDURE: Ultrasound right breast HISTORY: r/o abscess, h/o lumpectomy COMPARISON: 08/08/2017 TECHNIQUE: Examination was performed utilizing a linear array transducer FINDINGS: In the 8-9 o'clock axis of the right breast, there is a complex collection of fluid with some internal debris and septation, measuring 8.3 x 4.7 x 7.9 cm. This is slightly larger than on the prior examination of 08/08/2017. There is no evidence of hypervascularity surrounding this collection. Differential diagnosis includes abscess or seroma/ hematoma. In the right anterior chest wall superior to the breast there is a mildly complex cyst with some internal septation, measuring 7.0 x 3.4 x 7.5 cm. Nonspecific. No surrounding hypervascularity. Differential diagnosis again includes abscess or seroma. There is retroareolar ductal ectasia noted. There is a probable lymph node in the axillary tail of the right breast measuring 3 cm in greatest dimension. Slightly atypical appearance. Second unremarkable axillary tail lymph node, 2.7 cm greatest dimension. IMPRESSION: Complex fluid collection in the 8-9 o'clock axis of the right breast slightly larger than on 08/08/2017. Abscess versus seroma/ hematoma. Mildly complex cyst with some internal septation in the superior right chest wall, 7.5 cm greatest dimension. Likely seroma. Cannot rule out abscess.
[2017-09-01] MEDS: Clindamycin 300 MG in Sodium Chloride 0.9% 50 ML IVPB SCH ×3 (16:54→23:16)
[2017-09-01] MEDS: Meropenem 500 MG in Sodium Chloride 0.9% 100 ML IVPB SCH (21:25)
[2017-09-02] MEDS: Clindamycin 300 MG in Sodium Chloride 0.9% 50 ML IVPB SCH ×4 (05:11→22:46)
[2017-09-02] MEDS: Pantoprazole 40 mg Susp UD PO SCH (05:12)
[2017-09-02] MEDS: Meropenem 500 MG in Sodium Chloride 0.9% 100 ML IVPB SCH ×3 (05:16→21:40)
[2017-09-02] MEDS: Enoxaparin 30 mg Syringe SC SCH (10:50)
--- NOTE | 2017-09-02 19:43 | CP.PCM.CON ---
History of Present Illness - History of Present Illness History of Present Illness: INFECTIOUS DISEASE CONSULT; HPI; 71 y/o female with history of DM, HTN, HLD presents to ED with c/o of increased redness and pain to right breast. Patient had a lumpectomy on 07/18/17 secondary to right breast ductal metastatic CA. She was admitted to the hospital 08/08/17 for infection to wound area. Patient states pain and redness had improved, but for the last 2 days it returned. Pt saw her surgeon, Dr Gordon, last week, had a biopsy and given stronger dose of Cipro. Pt notes she has been on abx since her discahrge on 08/14/17. Patient denies any fever or chills but is complaining of pain on the incision sites above and below the breast and also generalized pain in the breast.patient denies any cough, shortness of breath, nausea, vomiting or any other complaints . PATIENT PRESENTLY NOT ON ANY CHEMOTHERAPY,BUT IS FOLLOWING UP WITH ONCOLOGIST DR. RUSHING. PATIENT DENIES ANY COUGH, SHORTNESS OF BREATH, CHEST PAIN OR PALPITATIONS. PMH: Arthritis (BACK), Diabetes, HTN, Hypercholesterolemia Surgical History: Cholecystectomy - [facility] Procedures APPLICATION OF SPLINT (11/12/14) DRAINAGE OF RIGHT BREAST, OPEN APPROACH (08/08/17) TETANUS TOXOID ADMINIST (08/14/13) Family History: States: No Known Family Hx - Social History Hx Tobacco Use: No Hx Alcohol Use: No Hx Substance Use: No - Immunization History Hx Tetanus Toxoid Vaccination: Yes Hx Influenza Vaccination: Yes Hx Pneumococcal Vaccination: No ALLERGY: AMOXACILLIN, CLAVULANIC ACID tolerates AZACTAM. Review of Systems - Constitutional Constitutional: absent: Chills, Fever - EENT Eyes: absent: Change in Vision, Floaters Nose/Mouth/Throat: absent: Mouth Lesions - Breasts Breasts: Skin Changes (PEAU DE ORANGE CHANGES RT BREAST /CELLULITISRT BREAST). absent: Nipple Discharge - Cardiovascular Cardiovascular: absent: Chest Pain, Pedal Edema - Respiratory Respiratory: absent: Cough, Hemoptysis - Gastrointestinal Gastrointestinal: absent: Constipation, Diarrhea - Menstruation Menstruation: Post Menopausal - Musculoskeletal Musculoskeletal: Radiating Pain into Limb (RT AXILLA AND LEE) - Integumentary Integumentary: Lesions (SURGICAL SCAR HEALING.) - Hematologic/Lymphatic Hematologic: As Per HPI. absent: Easy Bleeding, Lymphadenopathy Past Patient History - Infectious Disease Hx of Infectious Diseases: None - Past Medical History & Family History Past Medical History?: Yes - Past Social History Smoking Status: Never Smoked - CARDIAC Hx Hypercholesterolemia: Yes Hx Hypertension: Yes - PULMONARY Hx Respiratory Disorders: No - NEUROLOGICAL Hx Neurological Disorder: No Other/Comment: AAOX3 - HEENT Hx HEENT Problems: No Other/Comment: WEARS GLASSES - RENAL Hx Chronic Kidney Disease: No - ENDOCRINE/METABOLIC Hx Endocrine Disorders: Yes Hx Diabetes Mellitus Type 2: Yes - HEMATOLOGICAL/ONCOLOGICAL Hx Blood Disorders: Yes Hx Blood Transfusions: No Hx Cancer: Yes Other/Comment: Malignant neoplasm rt breast - INTEGUMENTARY Hx Dermatological Problems: No - MUSCULOSKELETAL/RHEUMATOLOGICAL Hx Arthritis: Yes (BACK) - GASTROINTESTINAL Hx Gastrointestinal Disorders: No - GENITOURINARY/GYNECOLOGICAL Hx Genitourinary Disorders: No - PSYCHIATRIC Hx Substance Use: No - SURGICAL HISTORY Hx Cholecystectomy: Yes - ANESTHESIA Hx Anesthesia: Yes Hx Anesthesia Reactions: No Hx Malignant Hyperthermia: No Meds Allergies/Adverse Reactions: Allergies Allergy/AdvReac Type Severity Reaction Status Date / Time amoxicillin [From Augmentin] Allergy RASH Verified 08/08/17 11:30 clavulanic acid Allergy RASH Verified 09/01/17 12:46 [From Augmentin] - Medications Medications: Current Medications Acetaminophen (Tylenol 325mg Tab) 650 mg PO Q6 PRN PRN Reason: Pain, moderate (4-7) Last Admin: 09/02/17 12:12 Dose: 650 mg Enoxaparin Sodium (Lovenox) 30 mg SC DAILY [facility] Last Admin: 09/02/17 10:50 Dose: 30 mg Clindamycin Phosphate 300 mg/ (Sodium Chloride) 52 mls @ 104 mls/hr IVPB Q6H [facility] PRN Reason: Protocol Last Admin: 09/02/17 17:02 Dose: 104 mls/hr Meropenem 500 mg/ Sodium (Chloride) 100 mls @ 100 mls/hr IVPB Q8 [facility]ICK PRN Reason: Protocol Last Admin: 09/02/17 14:30 Dose: 100 mls/hr Losartan Potassium (Cozaar) 50 mg PO DAILY [facility] Last Admin: 09/02/17 10:50 Dose: 50 mg Metformin HCl (Glucophage) 850 mg PO BID [facility] Last Admin: 09/02/17 17:36 Dose: 850 mg Pantoprazole Sodium (Protonix Susp) 40 mg PO 0600 [facility] Last Admin: 09/02/17 05:12 Dose: 40 mg Physical Exam - Constitutional Appears: No Acute Distress - Head Exam Head Exam: NORMAL INSPECTION - Eye Exam Eye Exam: EOMI, PERRL - ENT Exam ENT Exam: Normal Oropharynx - Neck Exam Neck exam: Positive for: Normal Inspection - Respiratory Exam Respiratory Exam: Clear to Auscultation Bilateral - Cardiovascular Exam Cardiovascular Exam: REGULAR RHYTHM, +S1, +S2 - GI/Abdominal Exam GI & Abdominal Exam: Normal Bowel Sounds, Soft. absent: Organomegaly, Tenderness - Extremities Exam Extremities exam: Positive for: normal capillary refill, pedal pulses present. Negative for: calf tenderness, pedal edema - Neurological Exam Neurological exam: Alert, CN II-XII Intact, Oriented x3, Reflexes Normal - Psychiatric Exam Psychiatric exam: Normal Mood - Skin Skin Exam: Normal Color, Warm Results - Vital Signs Recent Vital Signs: Last Vital Signs Temp 98 F 09/02/17 15:15 Pulse 80 09/02/17 15:15 Resp 20 09/02/17 15:15 BP 122/68 09/02/17 15:15 Pulse Ox 97 09/02/17 15:15 - Labs Result Diagrams: 09/01/17 13:57 09/01/17 13:57 Labs: Laboratory Results - last 24 hr 09/02/17 09/02/17 09/02/17 07:11 11:07 16:44 POC Glucose (mg/dL) 152 H 182 H 239 H - Imaging and Cardiology US - abdomen Status: Pending (rt breast us) Assessment & Plan (1) Breast abscess Assessment and Plan: S/P BREAST SURGERY 07/18/17 .BLOOD CULTURES 2 SETS. .DRAINAGE RIGHT BREAST culture 08/08/17 +ve kLEBSIELLA PNEUMONIAE/SCN. . START iv MERREM 500MG EVERY 8 HOURLY FOR GRAM-NEGATIVE COVERAGE WHILE AWAITING CULTURES. . 09/01/17 . CONTINUE iv CLEOCIN 300 MG EVERY 8 HOURLY. 09/01/17. . fOLLOW-UP RT BREAST US R/O ABSCESS . MRSA SCREEN. . F/U ANY REACTIONS FROM IV MERREM INDICATED -ANY RASH,ITCHING,HYPOTENSION OR SEIZURES. STOP SLADE IF ANY REACTIONS OBSERVED. . GIVE INFUSION RECOMMENDED. . F/U RENAL FUNCTIONS CLOSELY.. . F/U LFTS. Status: Acute (2) Cellulitis of right breast Status: Acute (3) Failure of outpatient treatment Assessment and Plan: PT HAS BEEN ON ORAL CIPRO 750MG PO BID AND CLEOCIN 300MG PO Q 8HRLY SINCE 08/14/17 . PT FAILED OPD TREATMENT. Status: Acute (4) Diabetes Status: Chronic (5) Hypertension Status: Chronic
[2017-09-03] MEDS: Clindamycin 300 MG in Sodium Chloride 0.9% 50 ML IVPB SCH ×4 (05:07→21:42)
[2017-09-03] MEDS: Meropenem 500 MG in Sodium Chloride 0.9% 100 ML IVPB SCH ×3 (05:55→21:36)
[2017-09-03] MEDS: Pantoprazole 40 mg Susp UD PO SCH (05:56)
[2017-09-03] MEDS: Enoxaparin 30 mg Syringe SC SCH (11:00)
--- NOTE | 2017-09-03 20:47 | CP.PCM.PN ---
Subjective - Date & Time of Evaluation Date of Evaluation: 09/03/17 Time of Evaluation: 20:47 - Subjective Subjective: Pt reports feeling better less breast pain and less no erythema Objective - Vital Signs/Intake and Output Vital Signs (last 24 hours): Temp Pulse Resp BP Pulse Ox 98.1 F 72 20 145/76 98 09/03/17 16:00 09/03/17 16:00 09/03/17 16:00 09/03/17 16:00 09/03/17 16:00 Intake and Output: 09/03/17 09/04/17 18:59 06:59 Intake Total 450 Balance 450 - Medications Medications: Current Medications Acetaminophen (Tylenol 325mg Tab) 650 mg PO Q6 PRN PRN Reason: Pain, moderate (4-7) Last Admin: 09/03/17 11:29 Dose: 650 mg Enoxaparin Sodium (Lovenox) 30 mg SC DAILY [facility] Last Admin: 09/03/17 11:00 Dose: 30 mg Clindamycin Phosphate 300 mg/ (Sodium Chloride) 52 mls @ 104 mls/hr IVPB Q6H DEDRICK PRN Reason: Protocol Last Admin: 09/03/17 16:30 Dose: 104 mls/hr Meropenem 500 mg/ Sodium (Chloride) 100 mls @ 100 mls/hr IVPB Q8 DEDRICK PRN Reason: Protocol Last Admin: 09/03/17 14:49 Dose: 100 mls/hr Vancomycin/Sodium Chloride (Vancomycin 1 Gm/Ns 200 Ml) 1 gm in 200 mls @ 133.333 mls/hr IVPB Q12H DEDRICK PRN Reason: Protocol Stop: 09/08/17 05:01 Losartan Potassium (Cozaar) 50 mg PO DAILY [facility] Last Admin: 09/03/17 11:00 Dose: 50 mg Metformin HCl (Glucophage) 850 mg PO BID [facility] Last Admin: 09/03/17 18:06 Dose: 850 mg Pantoprazole Sodium (Protonix Susp) 40 mg PO 0600 [facility] Last Admin: 09/03/17 05:56 Dose: 40 mg Sitagliptin Phosphate (Januvia) 100 mg PO DAILY [facility] - Labs Labs: 09/01/17 13:57 09/01/17 13:57 - Constitutional Appears: Well, Non-toxic - Eye Exam Eye Exam: Normal appearance - ENT Exam ENT Exam: Mucous Membranes Moist - Respiratory Exam Respiratory Exam: NORMAL BREATHING PATTERN - Cardiovascular Exam Cardiovascular Exam: RRR, +S1, +S2 (right breast indurated but no erythema or discharge). absent: JVD Assessment and Plan - Assessment and Plan (Free Text) Plan: cellulitis of breast however some of the breast changes are due to malignancy cont abx per ID pt needs a portacath to start chemo will disucuss with ID if blood cultures are negative, should do sooner bp; not ideal will monitor diabetes sugars up kishore mckenzie
[2017-09-03] MEDS: Vancomycin 1 gm/NS 200 ml 1 GM/200 ML BAG IVPB SCH (21:50)
[2017-09-04] MEDS: Clindamycin 300 MG in Sodium Chloride 0.9% 50 ML IVPB SCH ×4 (03:38→21:45)
[2017-09-04] MEDS: Vancomycin 1 gm/NS 200 ml 1 GM/200 ML BAG IVPB SCH ×2 (04:35→17:38)
[2017-09-04] MEDS: Meropenem 500 MG in Sodium Chloride 0.9% 100 ML IVPB SCH ×3 (05:37→21:44)
[2017-09-04] MEDS: Pantoprazole 40 mg Susp UD PO SCH (05:38)
[2017-09-04 07:34] LABS: HEMOGLOBIN 12.6 g/dL (11.0-16.0); MEAN CELL VOLUME 93.7 fL (81.0-99.0); MEAN CORPUSCULAR HEMOGLOBIN 32.2 pg (27.0-31.0); MEAN CORPUSCULAR HGB CONC 34.3 g/dL (33.0-37.0); MEAN PLATELET VOLUME 9.3 fL (7.2-11.7); RBC 3.93 Mil/uL (3.80-5.20); RED CELL DISTRIBUTION WIDTH 14.8 % (11.5-14.5); WHITE BLOOD COUNT 6.6 K/uL (4.8-10.8)
[2017-09-04 07:56] LABS: ALB/GLOB RATIO 1.1 (1.0-2.1); ALBUMIN 3.8 g/dL (3.5-5.0); ALT/SGPT 31 U/L (9-52); AST/SGOT 32 U/L (14-36); BLOOD UREA NITROGEN 14 mg/dL (7-17); GFR AFRICAN-AMERICAN > 60; GFR NON-AFRICAN AMERICAN > 60
[2017-09-04] MEDS: Enoxaparin 30 mg Syringe SC SCH (09:54)
--- NOTE | 2017-09-04 18:13 | CP.PCM.PN ---
Subjective - Date & Time of Evaluation Date of Evaluation: 09/04/17 Time of Evaluation: 18:13 - Subjective Subjective: CHIEF COMPLAINTS TODAY : afebrile,VSS LESS PAIN RT BREAST lESS ERYTHEMA AND CELLULITIS ROS. HEENT : N. Resp : No SOB wheezing, cough Cardio : No CP, PND orthopnea GI : No abd. 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 Musculoskel : N Ext. : Pedal pulses intact, no edema or calf pain Derm : N Psych : N. PE. Pt. is alert awake in no distress. V.S As noted in the chart Head ,ear nose,throat and eyes : Normal. Neck : Supple with normal carotids. Lungs: Clear air entry. Heart : S1 & S2 normal . . No murmur. S4 + Abd : Soft non tender with normal bowel sounds. Neuro : Moves all ext. with no localized deficit. Ext : No edema with intact pulses. Neg. calf tenderness Derm : RT. BREAST EDEMATOUS/INDURATED WITH ERYTHEMA AND CELLULITIS IMPROVING Radiology/Labs . 09/01/17 breast ultrasound; noted and reviewed Complex fluid collection 8 9:00 o'clock axis right breast,slightly larger than on 08/08/17. Complex cyst with internal septations right chest wall 7.5 cm in greatest dimension ? seroma versus abscess cannot be ruled out. BLOOD CULTURES 09/01/17 -VE TO DATE CREATININE 0.7/bun 14 STOOL C. DIFFICILE NEGATIVE Objective - Vital Signs/Intake and Output Vital Signs (last 24 hours): Temp Pulse Resp BP Pulse Ox 98.6 F 77 20 151/71 H 97 09/04/17 16:00 09/04/17 16:00 09/04/17 16:00 09/04/17 16:00 09/04/17 16:00 Intake and Output: 09/04/17 09/04/17 06:59 18:59 Intake Total 1302 850 Balance 1302 850 - Medications Medications: Current Medications Acetaminophen (Tylenol 325mg Tab) 650 mg PO Q6 PRN PRN Reason: Pain, moderate (4-7) Last Admin: 09/04/17 17:40 Dose: 650 mg Enoxaparin Sodium (Lovenox) 30 mg SC DAILY [facility] Last Admin: 09/04/17 09:54 Dose: 30 mg Clindamycin Phosphate 300 mg/ (Sodium Chloride) 52 mls @ 104 mls/hr IVPB Q6H DEDRICK PRN Reason: Protocol Last Admin: 09/04/17 16:40 Dose: 104 mls/hr Meropenem 500 mg/ Sodium (Chloride) 100 mls @ 100 mls/hr IVPB Q8 D[facility]RICK PRN Reason: Protocol Last Admin: 09/04/17 13:43 Dose: 100 mls/hr Vancomycin/Sodium Chloride (Vancomycin 1 Gm/Ns 200 Ml) 1 gm in 200 mls @ 133.333 mls/hr IVPB Q12H DEDRICK PRN Reason: Protocol Stop: 09/08/17 05:01 Last Admin: 09/04/17 17:38 Dose: 133.333 mls/hr Losartan Potassium (Cozaar) 50 mg PO DAILY [facility] Last Admin: 09/04/17 09:53 Dose: 50 mg Metformin HCl (Glucophage) 850 mg PO BID [facility] Last Admin: 09/04/17 17:37 Dose: 850 mg Pantoprazole Sodium (Protonix Susp) 40 mg PO 0600 [facility] Last Admin: 09/04/17 05:38 Dose: 40 mg Sitagliptin Phosphate (Januvia) 100 mg PO DAILY [facility] Last Admin: 09/04/17 09:53 Dose: 100 mg - Labs Labs: 09/04/17 07:13 09/04/17 07:13 Assessment and Plan (1) Breast abscess Assessment & Plan: right breast with complex fluid collection ? infected seroma vs abscess on ultrasound Patient swelling/And erythema and induration subsiding and less tenderness elicited today Previous right breast aspirate +ve for Klebsiella pneumoniae/scn. Patient tolerated IV Merrem after test dose. To continue IV Merrem 500 mg every 8 hourly.09/01/17 Continue IV vancomycin 1 g every 12 hourly 09/02/17 continue IV Cleocin 300 mg every 8 hourly 09/01/17. BLOOD CULTURES -VE TO DATE. SO MAY INSERT A KIMBERLY CATH . WILL DISCUSS WITH ATTENDING. Status: Acute (2) Cellulitis of right breast Assessment & Plan: IMPROVING . Status: Acute (3) Failure of outpatient treatment Status: Acute (4) Diabetes Status: Chronic (5) Hypertension Status: Chronic
[2017-09-05] MEDS: Clindamycin 300 MG in Sodium Chloride 0.9% 50 ML IVPB SCH ×4 (05:13→22:25)
[2017-09-05] MEDS: Pantoprazole 40 mg Susp UD PO SCH (05:20)
[2017-09-05] MEDS: Vancomycin 1 gm/NS 200 ml 1 GM/200 ML BAG IVPB SCH ×2 (05:22→18:16)
[2017-09-05] MEDS: Meropenem 500 MG in Sodium Chloride 0.9% 100 ML IVPB SCH ×3 (05:24→21:49)
[2017-09-05] MEDS: Enoxaparin 30 mg Syringe SC SCH (11:00)
--- NOTE | 2017-09-05 14:34 | CP.PCM.CON ---
History of Present Illness - History of Present Illness History of Present Illness: Surgery: Dr. Borrego Reason for consult: right breast abscess CC: recurrent right breast infection HPI: Patient is a 71 y/o female w/ biopsy diagnosed invasive ductal CA of the right breast. Patient reports undergoing right breast lumpect[place] about [address] [place] [facility] [place] [facility] [place] course complicated by surgical site infection. She states she was given po abx which did not seem to help and also attempted increasing dose of po abx which did not help either. Patient underwent IR drainage of right breast abscess/cyst on 08/10 however the pain, redness and infection remained present. She was admitted to hospital on Monday for continued infection of the right breast. She denies f/c/n/v. She states she has pain in her right shoulder arm and breast which makes lifting her arm difficult. She is unsure if any operation occurred in her axilla. She does report seeing a Heme/onc doctor although she does not recall the name who stated that the infection must be resolved before chemo/radiation can start. PMH: HTN, DM, HLD, arthritis PSH: cholecystectomy, right breast lumpectomy Social: denies etoh, tobacco, or drug use Review of Systems - Review of Systems All systems: reviewed and no additional remarkable complaints except Review of Systems: unless stated in HPI Past Patient History - Infectious Disease Hx of Infectious Diseases: None - Past Medical History & Family History Past Medical History?: Yes - Past Social History Smoking Status: Never Smoked - CARDIAC Hx Hypercholesterolemia: Yes Hx Hypertension: Yes - PULMONARY Hx Respiratory Disorders: No - NEUROLOGICAL Hx Neurological Disorder: No Other/Comment: AAOX3 - HEENT Hx HEENT Problems: No Other/Comment: WEARS GLASSES - RENAL Hx Chronic Kidney Disease: No - ENDOCRINE/METABOLIC Hx Endocrine Disorders: Yes Hx Diabetes Mellitus Type 2: Yes - HEMATOLOGICAL/ONCOLOGICAL Hx Blood Disorders: Yes Hx Blood Transfusions: No Hx Cancer: Yes Other/Comment: Malignant neoplasm rt breast - INTEGUMENTARY Hx Dermatological Problems: No - MUSCULOSKELETAL/RHEUMATOLOGICAL Hx Arthritis: Yes (BACK) - GASTROINTESTINAL Hx Gastrointestinal Disorders: No - GENITOURINARY/GYNECOLOGICAL Hx Genitourinary Disorders: No - PSYCHIATRIC Hx Substance Use: No - SURGICAL HISTORY Hx Cholecystectomy: Yes - ANESTHESIA Hx Anesthesia: Yes Hx Anesthesia Reactions: No Hx Malignant Hyperthermia: No Meds Allergies/Adverse Reactions: Allergies Allergy/AdvReac Type Severity Reaction Status Date / Time amoxicillin [From Augmentin] Allergy RASH Verified 08/08/17 11:30 clavulanic acid Allergy RASH Verified 09/01/17 12:46 [From Augmentin] - Medications Medications: Current Medications Acetaminophen (Tylenol 325mg Tab) 650 mg PO Q6 PRN PRN Reason: Pain, moderate (4-7) Last Admin: 09/05/17 11:56 Dose: 650 mg Enoxaparin Sodium (Lovenox) 30 mg SC DAILY [facility] Last Admin: 09/05/17 11:00 Dose: 30 mg Clindamycin Phosphate 300 mg/ (Sodium Chloride) 52 mls @ 104 mls/hr IVPB Q6H [facility] PRN Reason: Protocol Last Admin: 09/05/17 11:30 Dose: 104 mls/hr Meropenem 500 mg/ Sodium (Chloride) 100 mls @ 100 mls/hr IVPB Q8 [facility] PRN Reason: Protocol Last Admin: 09/05/17 05:24 Dose: 100 mls/hr Vancomycin/Sodium Chloride (Vancomycin 1 Gm/Ns 200 Ml) 1 gm in 200 mls @ 133.333 mls/hr IVPB Q12H [facility] PRN Reason: Protocol Stop: 09/08/17 05:01 Last Admin: 09/05/17 05:22 Dose: 133.333 mls/hr Dextrose/Lactated Ringer's (Dextrose 5%/Lactated Ringer's) 1,000 mls @ 40 mls/ hr IV .Q24H [facility] Insulin Human Regular (Novolin R) 0 unit SC ACHS [facility] PRN Reason: Protocol Losartan Potassium (Cozaar) 50 mg PO DAILY [facility] Last Admin: 09/05/17 11:00 Dose: 50 mg Metformin HCl (Glucophage) 850 mg PO BID [facility] Last Admin: 09/05/17 10:59 Dose: 850 mg Pantoprazole Sodium (Protonix Susp) 40 mg PO 0600 [facility] Last Admin: 09/05/17 05:20 Dose: 40 mg Sitagliptin Phosphate (Januvia) 100 mg PO DAILY [facility] Last Admin: 09/05/17 11:00 Dose: 100 mg Physical Exam - Constitutional Appears: Non-toxic, No Acute Distress - Head Exam Head Exam: ATRAUMATIC, NORMOCEPHALIC - Eye Exam Eye Exam: EOMI, Normal appearance - ENT Exam ENT Exam: Mucous Membranes Moist - Respiratory Exam Respiratory Exam: NORMAL BREATHING PATTERN. absent: Respiratory Distress - Cardiovascular Exam Cardiovascular Exam: REGULAR RHYTHM. absent: Tachycardia - GI/Abdominal Exam GI & Abdominal Exam: Soft. absent: Distended, Tenderness - Extremities Exam Extremities exam: Positive for: normal inspection. Negative for: calf tenderness - Neurological Exam Neurological exam: Alert, Oriented x3 - Psychiatric Exam Psychiatric exam: Normal Affect, Normal Mood - Skin Skin Exam: Normal Color, Warm Additional comments: Right breast: cellulitis noted to skin palpable fullness/mass superior to nipple , well healed surgical scar about and below breast. No drainage expressible from nipple. NO palpable nodes in axilla or clavicular area. Left breast: no cellulitis, no mass, no nodes in axilla or clavicular area Results - Vital Signs Recent Vital Signs: Last Vital Signs Temp 97.6 F 09/05/17 07:57 Pulse 77 09/05/17 11:36 Resp 20 09/05/17 07:57 BP 149/74 09/05/17 07:57 Pulse Ox 96 09/05/17 11:36 - Labs Result Diagrams: 09/04/17 07:13 09/04/17 07:13 Labs: Laboratory Results - last 24 hr 09/04/17 09/04/17 09/05/17 16:32 21:36 07:26 POC Glucose (mg/dL) 149 H 165 H 173 H Vancomycin Trough 09/05/17 09/05/17 07:51 11:22 POC Glucose (mg/dL) 217 H Vancomycin Trough 10.6 H Assessment & Plan - Assessment and Plan (Free Text) Assessment: 71 y/o female w/ breast cellulitis and abscess s/p lumpectomy Plan: -plan for OR I&D Monday at 12 -NPO pmn -hold long acting diabetic medication -d5LR to start at midnight -SSI added to diabetic regimen -discussed plan with patient who understands -d/w Dr. Elmo Olea PGY3
[2017-09-05] MEDS: (Novolin R) Insulin Human Regular 100 units/ml vial SC SCH ×2 (17:01→21:51)
--- NOTE | 2017-09-05 17:01 | RAD ---
HISTORY: pre op COMPARISON: 11/13/2016 FINDINGS: LUNGS: Mild lung volumes. Central pulmonary vasculature appears mildly congested - the 2 studies are quite different in projection current study an AP semi-erect. Some of the increase opacity at the left lung base may relate to this projection. However interval left inferolateral pleural pathology pleural thickening pleural effusion here also needs to be considered. PLEURA: Left inferolateral pleural thickening and/or pleural effusion - the the appearance is an interval change compared to the prior study. No pneumothorax apparent. CARDIOVASCULAR: Top-normal heart size OSSEOUS STRUCTURES: Thoracic spondylosis. VISUALIZED UPPER ABDOMEN: Normal. OTHER FINDINGS: Large body habitus IMPRESSION: Interval increase opacity left inferolateral hemithorax -interval left pleural effusion thickening with contiguous left inferolateral pleural base pathology here are all possible. These in technique also limits optimal evaluation. An element of mild pulmonary venous congestion is also suspect and not appreciated on the prior exam.
--- NOTE | 2017-09-05 17:42 | CP.PCM.PN ---
Subjective - Date & Time of Evaluation Date of Evaluation: 09/05/17 Time of Evaluation: 17:38 - Subjective Subjective: Pt unchaged last 24 unremarkable blood cultures remain all negative no chest pain or sob no fever Objective - Vital Signs/Intake and Output Vital Signs (last 24 hours): Temp Pulse Resp BP Pulse Ox 98 F 84 20 167/83 H 95 09/05/17 16:00 09/05/17 16:00 09/05/17 16:00 09/05/17 16:00 09/05/17 16:00 Intake and Output: 09/05/17 09/05/17 06:59 18:59 Intake Total 250 452 Balance 250 452 - Medications Medications: Current Medications Acetaminophen (Tylenol 325mg Tab) 650 mg PO Q6 PRN PRN Reason: Pain, moderate (4-7) Last Admin: 09/05/17 11:56 Dose: 650 mg Enoxaparin Sodium (Lovenox) 30 mg SC DAILY [facility] Last Admin: 09/05/17 11:00 Dose: 30 mg Clindamycin Phosphate 300 mg/ (Sodium Chloride) 52 mls @ 104 mls/hr IVPB Q6H [facility] PRN Reason: Protocol Last Admin: 09/05/17 16:56 Dose: 104 mls/hr Meropenem 500 mg/ Sodium (Chloride) 100 mls @ 100 mls/hr IVPB Q8 [facility] PRN Reason: Protocol Last Admin: 09/05/17 14:34 Dose: 100 mls/hr Vancomycin/Sodium Chloride (Vancomycin 1 Gm/Ns 200 Ml) 1 gm in 200 mls @ 133.333 mls/hr IVPB Q12H [facility] PRN Reason: Protocol Stop: 09/08/17 05:01 Last Admin: 09/05/17 05:22 Dose: 133.333 mls/hr Dextrose/Lactated Ringer's (Dextrose 5%/Lactated Ringer's) 1,000 mls @ 40 mls/ hr IV .Q24H [facility] Insulin Human Regular (Novolin R) 0 unit SC ACHS [facility] PRN Reason: Protocol Last Admin: 09/05/17 17:01 Dose: Not Given Losartan Potassium (Cozaar) 50 mg PO DAILY [facility] Last Admin: 09/05/17 11:00 Dose: 50 mg Metformin HCl (Glucophage) 850 mg PO BID [facility] Last Admin: 09/05/17 10:59 Dose: 850 mg Pantoprazole Sodium (Protonix Susp) 40 mg PO 0600 [facility] Last Admin: 09/05/17 05:20 Dose: 40 mg Sitagliptin Phosphate (Januvia) 100 mg PO DAILY [facility] Last Admin: 09/05/17 11:00 Dose: 100 mg - Labs Labs: 09/04/17 07:13 09/04/17 07:13 - Constitutional Appears: Well - Eye Exam Eye Exam: Normal appearance - ENT Exam ENT Exam: Mucous Membranes Moist - Cardiovascular Exam Cardiovascular Exam: REGULAR RHYTHM. absent: JVD Assessment and Plan - Assessment and Plan (Free Text) Assessment: breast; spoke to DR. Gordon who did surgery on pt. He came as courtesy today. (not on staff) His opinion is that a lot of changes in breast are post op, not necessarily infection, but need to verify. I and D tomorrow Pt has had all negative blood cultures. Pt does have a ultrasound that shows increase fluid collectionthis could be a seroma or abscess. She is going to have it drained. I will speak to ID. PT needs to start chemo as soon as possible and portacath inserction has been understably delayed. Need to wait for I and D and cultures IF not blood cultures positive and fluid is sterile will proceed with portacath otherwise need to wait
--- NOTE | 2017-09-05 18:07 | US ---
PROCEDURE: RIGHT BREAST LIMITED ULTRASOUND: HISTORY: abscess COMPARISON: Right breast ultrasound 09/01/2017. TECHNIQUE: Targeted ultrasonography was performed at the site of prior complex fluid collection at the lateral right breast with imaging performed using high-frequency linear transducer through the 8-9 o'clock radius and upper chest wall regions. FINDINGS: A large complex fluid collection is reiterated but appears slightly more smaller measuring 6.7 x 5.1 x 5.8 cm without active color Doppler blood flow appreciated once again. Immediately cephalad to it is an additional collection measuring 7.5 x 3.9 x 4.9 cm, also slightly smaller than previously shown. No active color Doppler blood flow is associated with this collection either. IMPRESSION: Pattern remains suggestive of probable complex seroma or hematoma at the lateral right right breast and right chest wall ; clinically correlate further to exclude potential abscess though overall volumes are slightly decreased in the interval indicating progress of presumed therapy. Further clinical and potential imaging follow-up are advised.
--- NOTE | 2017-09-05 22:38 | CP.PCM.PN ---
Subjective - Date & Time of Evaluation Date of Evaluation: 09/05/17 Time of Evaluation: 22:38 - Subjective Subjective: CHIEF COMPLAINTS TODAY : afebrile,VSS LESS PAIN RT BREAST lESS ERYTHEMA AND CELLULITIS seen by surgery. for OR in am for aspiration right breast collection. ROS. HEENT : N. Resp : No SOB wheezing, cough Cardio : No CP, PND orthopnea GI : No abd. Pain, n/v CASE FINISHER : No headache , focal deficit. Musculoskel : N Ext. : Pedal pulses intact, no edema or calf pain Derm : N Psych : N. PE. Pt. is alert awake in no distress. V.S As noted in the chart Head ,ear nose,throat and eyes : Normal. Neck : Supple with normal carotids. Lungs: Clear air entry. Heart : S1 & S2 normal . . No murmur. S4 + Abd : Soft non tender with normal bowel sounds. Neuro : Moves all ext. with no localized deficit. Ext : No edema with intact pulses. Neg. calf tenderness Derm : RT. BREAST EDEMATOUS/INDURATED WITH ERYTHEMA AND CELLULITIS IMPROVING no drainage per nipple or breast scar tissue Radiology/Labs . 09/01/17 breast ultrasound; noted and reviewed Complex fluid collection 8 9:00 o'clock axis right breast,slightly larger than on 08/08/17. Complex cyst with internal septations right chest wall 7.5 cm in greatest dimension ? seroma versus abscess cannot be ruled out. BLOOD CULTURES 09/01/17 -VE TO DATE CREATININE 0.7/bun 14 STOOL C. DIFFICILE NEGATIVE Objective - Vital Signs/Intake and Output Vital Signs (last 24 hours): Temp Pulse Resp BP Pulse Ox 98 F 84 20 167/83 H 95 09/05/17 16:00 09/05/17 16:00 09/05/17 16:00 09/05/17 16:00 09/05/17 16:00 Intake and Output: 09/05/17 09/06/17 18:59 06:59 Intake Total 452 Balance 452 - Medications Medications: Current Medications Acetaminophen (Tylenol 325mg Tab) 650 mg PO Q6 PRN PRN Reason: Pain, moderate (4-7) Last Admin: 09/05/17 18:23 Dose: 650 mg Enoxaparin Sodium (Lovenox) 30 mg SC DAILY [facility] Last Admin: 09/05/17 11:00 Dose: 30 mg Clindamycin Phosphate 300 mg/ (Sodium Chloride) 52 mls @ 104 mls/hr IVPB Q6H [facility] PRN Reason: Protocol Last Admin: 09/05/17 22:25 Dose: 104 mls/hr Meropenem 500 mg/ Sodium (Chloride) 100 mls @ 100 mls/hr IVPB Q8 [facility] PRN Reason: Protocol Last Admin: 09/05/17 21:49 Dose: 100 mls/hr Vancomycin/Sodium Chloride (Vancomycin 1 Gm/Ns 200 Ml) 1 gm in 200 mls @ 133.333 mls/hr IVPB Q12H [facility] PRN Reason: Protocol Stop: 09/08/17 05:01 Last Admin: 09/05/17 18:16 Dose: 133.333 mls/hr Dextrose/Lactated Ringer's (Dextrose 5%/Lactated Ringer's) 1,000 mls @ 40 mls/ hr IV .Q24H [facility] Insulin Human Regular (Novolin R) 0 unit SC ACHS [facility] PRN Reason: Protocol Last Admin: 09/05/17 21:51 Dose: Not Given Losartan Potassium (Cozaar) 50 mg PO DAILY [facility] Last Admin: 09/05/17 11:00 Dose: 50 mg Metformin HCl (Glucophage) 850 mg PO BID [facility] Last Admin: 09/05/17 10:59 Dose: 850 mg Pantoprazole Sodium (Protonix Susp) 40 mg PO 0600 [facility] Last Admin: 09/05/17 05:20 Dose: 40 mg Sitagliptin Phosphate (Januvia) 100 mg PO DAILY [facility] Last Admin: 09/05/17 11:00 Dose: 100 mg - Labs Labs: 09/04/17 07:13 09/04/17 07:13 Assessment and Plan (1) Breast abscess Assessment & Plan: right breast with complex fluid collection ? infected seroma vs abscess on ultrasound Patient swelling/And erythema and induration subsiding and less tenderness elicited today Previous right breast aspirate +ve for Klebsiella pneumoniae/scn. Patient tolerated IV Merrem after test dose. To continue IV Merrem 500 mg every 8 hourly.09/01/17 Continue IV vancomycin 1 g every 12 hourly 09/02/17 continue IV Cleocin 300 mg every 8 hourly 09/01/17. BLOOD CULTURES -VE TO DATE. SURGERY REFUSED TO PUT pORT-a-cATH IN VIEW OF INFECTED RIGHT BREAST COLLECTION. CASE DISCUSSED WITH NURSE PRACTITIONER MS NANDO. SURGICAL EVALUATION FOR ASPIRATION RIGHT BREAST COLLECTION AND APPROPRIATE gRAM STAIN AND CULTURES TO RULE OUT INFECTED SEROMA OR ABSCESS. PATIENT FOR OR IN A.M. Status: Acute (2) Cellulitis of right breast Assessment & Plan: CONTINUE iv ANTIBIOTICS ORDERED. fOLLOW-UP CULTURES OF ASPIRATE TO DECIDE FURTHER THERAPY. Status: Acute (3) Failure of outpatient treatment Status: Acute (4) Diabetes Status: Chronic (5) Hypertension Status: Chronic
[2017-09-06] MEDS ORDERED: Dextrose 5%/Lactated Ringer's 1,000 ML IV SCH (00:05)
[2017-09-06] MEDS: Clindamycin 300 MG in Sodium Chloride 0.9% 50 ML IVPB SCH ×4 (03:30→22:17)
[2017-09-06] MEDS: Vancomycin 1 gm/NS 200 ml 1 GM/200 ML BAG IVPB SCH ×2 (04:40→17:15)
[2017-09-06] MEDS: Meropenem 500 MG in Sodium Chloride 0.9% 100 ML IVPB SCH ×3 (05:29→21:15)
[2017-09-06] MEDS: Pantoprazole 40 mg Susp UD PO SCH (05:29)
[2017-09-06 07:34] LABS: INR 1.1; PROTHROMBIN TIME 11.9 SECONDS (9.7-12.2)
[2017-09-06 07:37] LABS: BASO # 0.1 K/uL (0.0-0.2); BASO % 0.7 % (0.0-2.0); EOS # 0.2 K/uL (0.0-0.7); EOS % 2.1 % (0.0-4.0); HEMOGLOBIN 13.3 g/dL (11.0-16.0); LYMPH # 1.5 K/uL (1.0-4.3); LYMPH % 20.1 % (20.0-40.0); MEAN CORPUSCULAR HEMOGLOBIN 32.6 pg (27.0-31.0); MEAN CORPUSCULAR HGB CONC 34.3 g/dL (33.0-37.0); MEAN PLATELET VOLUME 9.7 fL (7.2-11.7); MONO # 0.6 K/uL (0.0-0.8); MONO % 7.8 % (0.0-10.0); NEUT # 5.1 K/uL (1.8-7.0); NEUT % 69.3 % (50.0-75.0); NRBC % 0.2 % (0.0-2.0); RBC 4.1 Mil/uL (3.80-5.20); RED CELL DISTRIBUTION WIDTH 14.6 % (11.5-14.5); WHITE BLOOD COUNT 7.4 K/uL (4.8-10.8)
[2017-09-06 07:47] LABS: CALCIUM 9.5 mg/dl (8.6-10.4); GFR AFRICAN-AMERICAN > 60; GFR NON-AFRICAN AMERICAN > 60
[2017-09-06 07:48] LABS: BLOOD UREA NITROGEN 12 mg/dL (7-17)
[2017-09-06] MEDS: (Novolin R) Insulin Human Regular 100 units/ml vial SC SCH ×5 (08:30→21:52)
[2017-09-06] MEDS ORDERED: Propofol 10 mg/ml Inj (20 ML) ONE (11:56)
[2017-09-06] MEDS ORDERED: Labetalol 25mg/5ml Syringe ONE ×2 (13:14→13:56)
[2017-09-06] MEDS ORDERED: HYDROmorphone 0.5 mg/0.5 ml ISec IVP PRN (13:17)
--- NOTE | 2017-09-06 13:17 | PCM.SURG1 ---
Surgeon's Initial Post Op Note - Surgeon's Notes Surgeon: Dr. Borrego Electronic Scanner Operator: PGY1, Fatuma OMS3 Type of Anesthesia: General LMA Pre-Operative Diagnosis: Right breast Abscess Operative Findings: loculated abscess inferior to the nipple. Purulent drainage. for details see op note Post-Operative Diagnosis: as above Operation Performed: Incision and Drainage of Right Breast Abscess Specimen/Specimens Removed: Culture of abscess Estimated Blood Loss: EBL {In ML}: 2 Blood Products Given: N/A Drains Used: Cherry (sutured in place) Post-Op Condition: Fair Date of Surgery/Procedure: 09/06/17 Time of Surgery/Procedure: 13:17
[2017-09-06] MEDS ORDERED: Labetalol 25mg/5ml Syringe IV STA (13:50)
[2017-09-06] MEDS ORDERED: Lactated Ringer's 500 ML IV SCH (16:45)
[2017-09-06 17:23] VITALS: RESP 20
--- NOTE | 2017-09-06 18:25 | CP.PCM.PN ---
Subjective - Date & Time of Evaluation Date of Evaluation: 09/06/17 Time of Evaluation: 18:25 - Subjective Subjective: Pt sp I D feels well no chills no complaints eating but appetite not ideal Objective - Vital Signs/Intake and Output Vital Signs (last 24 hours): Temp Pulse Resp BP Pulse Ox 98.8 F 95 H 20 148/74 95 09/06/17 16:45 09/06/17 16:45 09/06/17 16:45 09/06/17 16:45 09/06/17 16:45 Intake and Output: 09/06/17 09/06/17 06:59 18:59 Intake Total 1262 702 Balance 1262 702 - Medications Medications: Current Medications Acetaminophen (Tylenol 325mg Tab) 650 mg PO Q6 PRN PRN Reason: Pain, moderate (4-7) Last Admin: 09/06/17 17:20 Dose: 650 mg Chlorthalidone (Hygroton) 25 mg PO DAILY [facility] Enoxaparin Sodium (Lovenox) 30 mg SC DAILY [facility] Last Admin: 09/05/17 11:00 Dose: 30 mg Clindamycin Phosphate 300 mg/ (Sodium Chloride) 52 mls @ 104 mls/hr IVPB Q6H [facility] PRN Reason: Protocol Last Admin: 09/06/17 16:19 Dose: 104 mls/hr Meropenem 500 mg/ Sodium (Chloride) 100 mls @ 100 mls/hr IVPB Q8 [facility] PRN Reason: Protocol Last Admin: 09/06/17 14:00 Dose: Not Given Vancomycin/Sodium Chloride (Vancomycin 1 Gm/Ns 200 Ml) 1 gm in 200 mls @ 133.333 mls/hr IVPB Q12H [facility] PRN Reason: Protocol Stop: 09/08/17 05:01 Last Admin: 09/06/17 17:15 Dose: 133.333 mls/hr Lactated Ringer's (Lactated Ringer's) 500 mls @ 40 mls/hr IV .[id number] [facility] Stop: 09/07/17 04:45 Insulin Human Regular (Novolin R) 0 unit SC ACHS [facility] PRN Reason: Protocol Last Admin: 09/06/17 17:17 Dose: 2 unit Losartan Potassium (Cozaar) 100 mg PO DAILY [facility] Metformin HCl (Glucophage) 850 mg PO BID [facility] Last Admin: 09/06/17 17:18 Dose: 850 mg Pantoprazole Sodium (Protonix Susp) 40 mg PO 0600 [facility] Last Admin: 09/06/17 05:29 Dose: Not Given Potassium Chloride (K-Dur 20 Meq Er Tab) 20 meq PO DAILY [facility] Stop: 09/07/17 10:01 Sitagliptin Phosphate (Januvia) 100 mg PO DAILY [facility] Last Admin: 09/05/17 11:00 Dose: 100 mg - Labs Labs: 09/06/17 07:15 09/06/17 07:15 PT 11.9 SECONDS (9.7-12.2) 09/06/17 07:15 INR 1.1 09/06/17 07:15 - Constitutional Appears: Well - Eye Exam Eye Exam: Normal appearance - ENT Exam ENT Exam: Mucous Membranes Moist - Cardiovascular Exam Cardiovascular Exam: REGULAR RHYTHM, RRR. absent: JVD - GI/Abdominal Exam GI & Abdominal Exam: Soft. absent: Tenderness (left breast drained in pless, skin not erythema, breast tissue softer) Assessment and Plan - Assessment and Plan (Free Text) Assessment: sp I and D purulent discharge docummented by IR. drainage left in place plant await I and D abx per ID bp elevated; adjusted meds diabetes; monitor sugars add PT case discussed with pt
--- NOTE | 2017-09-06 22:43 | CP.PCM.PN ---
Subjective - Date & Time of Evaluation Date of Evaluation: 09/06/17 Time of Evaluation: 22:43 - Subjective Subjective: CHIEF COMPLAINTS TODAY : afebrile,VSS S/P Incision and Drainage of Right Breast Abscess 09/06/17 loculated abscess inferior to the nipple. Purulent drainage. for details see op note ROS. HEENT : N. Resp : No SOB wheezing, cough Cardio : No CP, PND orthopnea GI : No abd. 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 Musculoskel : N Ext. : Pedal pulses intact, no edema or calf pain Derm : N Psych : N. PE. Pt. is alert awake in no distress. V.S As noted in the chart Head ,ear nose,throat and eyes : Normal. Neck : Supple with normal carotids. Lungs: Clear air entry. Heart : S1 & S2 normal . . No murmur. S4 + Abd : Soft non tender with normal bowel sounds. Neuro : Moves all ext. with no localized deficit. Ext : No edema with intact pulses. Neg. calf tenderness Derm : RT. BREAST EDEMATOUS/INDURATED WITH ERYTHEMA AND CELLULITIS IMPROVING +VE DRESSING DRY AND INTACT. no drainage per nipple or breast scar tissue Radiology/Labs . 09/01/17 breast ultrasound; noted and reviewed Complex fluid collection 8 9:00 o'clock axis right breast,slightly larger than on 08/08/17. Complex cyst with internal septations right chest wall 7.5 cm in greatest dimension ? seroma versus abscess cannot be ruled out. BLOOD CULTURES 09/01/17 -VE TO DATE CREATININE 0.7/bun 14 STOOL C. DIFFICILE NEGATIVE Objective - Vital Signs/Intake and Output Vital Signs (last 24 hours): Temp Pulse Resp BP Pulse Ox 98.8 F 95 H 20 148/74 95 09/06/17 16:45 09/06/17 16:45 09/06/17 16:45 09/06/17 16:45 09/06/17 16:45 Intake and Output: 09/06/17 09/07/17 18:59 06:59 Intake Total 702 Balance 702 - Medications Medications: Current Medications Acetaminophen (Tylenol 325mg Tab) 650 mg PO Q6 PRN PRN Reason: Pain, moderate (4-7) Last Admin: 09/06/17 17:20 Dose: 650 mg Chlorthalidone (Hygroton) 25 mg PO DAILY [facility] Enoxaparin Sodium (Lovenox) 30 mg SC DAILY [facility] Last Admin: 09/05/17 11:00 Dose: 30 mg Clindamycin Phosphate 300 mg/ (Sodium Chloride) 52 mls @ 104 mls/hr IVPB Q6H [facility] PRN Reason: Protocol Last Admin: 09/06/17 22:17 Dose: 104 mls/hr Meropenem 500 mg/ Sodium (Chloride) 100 mls @ 100 mls/hr IVPB Q8 [facility] PRN Reason: Protocol Last Admin: 09/06/17 21:15 Dose: 100 mls/hr Vancomycin/Sodium Chloride (Vancomycin 1 Gm/Ns 200 Ml) 1 gm in 200 mls @ 133.333 mls/hr IVPB Q12H [facility] PRN Reason: Protocol Stop: 09/08/17 05:01 Last Admin: 09/06/17 17:15 Dose: 133.333 mls/hr Lactated Ringer's (Lactated Ringer's) 500 mls @ 40 mls/hr IV .[id number] [facility] Stop: 09/07/17 04:45 Last Admin: 09/06/17 16:45 Dose: Not Given Insulin Human Regular (Novolin R) 0 unit SC ACHS [facility] PRN Reason: Protocol Last Admin: 09/06/17 21:52 Dose: Not Given Losartan Potassium (Cozaar) 100 mg PO DAILY [facility] Metformin HCl (Glucophage) 850 mg PO BID [facility] Last Admin: 09/06/17 17:18 Dose: 850 mg Pantoprazole Sodium (Protonix Susp) 40 mg PO 0600 [facility] Last Admin: 09/06/17 05:29 Dose: Not Given Potassium Chloride (K-Dur 20 Meq Er Tab) 20 meq PO DAILY [facility] Stop: 09/07/17 10:01 Sitagliptin Phosphate (Januvia) 100 mg PO DAILY [facility] Last Admin: 09/05/17 11:00 Dose: 100 mg - Labs Labs: 09/06/17 07:15 09/06/17 07:15 PT 11.9 SECONDS (9.7-12.2) 09/06/17 07:15 INR 1.1 09/06/17 07:15 Assessment and Plan (1) Breast abscess Assessment & Plan: S/P I&D RT BREAST COLLECTION 09/06/17 purulent drainage noted in OR To continue IV Merrem 500 mg every 8 hourly.09/01/17 Continue IV vancomycin 1 g every 12 hourly 09/02/17 continue IV Cleocin 300 mg every 8 hourly 09/01/17. Vanco trough 09/05/17-- 10.6 ok follow-up cultures to adjust antibiotics. Status: Acute (2) Cellulitis of right breast Status: Acute (3) Failure of outpatient treatment Status: Acute (4) Diabetes Status: Chronic (5) Hypertension Status: Chronic
--- NOTE | 2017-09-07 03:06 | OP ---
PROCEDURE DATE: 09/06/2017 SURGEON: Kaylynn Borrego MD TILTROTOR CREW CHIEF: Dr. Soto. ANESTHESIA: General LMA. PREOPERATIVE DIAGNOSIS: Abscess, right breast. POSTOPERATIVE DIAGNOSIS: Abscess, right breast. OPERATION: Incision and drainage of abscess, right breast. DESCRIPTION OF OPERATION: With the patient in the supine position under adequate general anesthesia, the right breast was prepped and draped in the usual sterile manner. The patient had a well-healed scar in the upper portion of the right breast and a healing incision in the lower portion of the right breast where she had recently undergone a lumpectomy for infiltrating ductal carcinoma. There was a round mass palpable deep to the lower incision extending upwards towards the area of areola and mild cellulitis of the overlying portion of the breast. A small skin incision was made into the area of the incision overlying the most prominent portion of the mass, and it was deepened through the full thickness of the skin. A quantity of fairly clear drainage was obtained along with a small amount of purulent exudate. A clamp was passed via the incision and noted to pass into a fairly large seroma cavity measuring 7 cm approximately in diameter, and this was explored circumferentially with removal of primarily clear fluid with a small amount of fibrinous material. The cultures were taken from the fluid, and the cavity was then further debrided with multiple passes of dry gauze. A 1/4-inch [place] drain was placed within the cavity, brought out through the surgical incision and sutured to the skin with a 3-0 nylon suture. It was noted that the breast swelling had resolved quite a bit after drainage of the seroma, and a dry sterile dressing was applied. The patient tolerated the procedure well and transferred to recovery room in stable condition. Estimated blood loss for the procedure was 2 mL. Kaylynn Borrego MD
[2017-09-07] MEDS: Clindamycin 300 MG in Sodium Chloride 0.9% 50 ML IVPB SCH ×4 (04:57→23:10)
[2017-09-07] MEDS: Vancomycin 1 gm/NS 200 ml 1 GM/200 ML BAG IVPB SCH ×2 (04:58→17:37)
[2017-09-07] MEDS: Meropenem 500 MG in Sodium Chloride 0.9% 100 ML IVPB SCH ×3 (05:00→22:09)
[2017-09-07] MEDS: Pantoprazole 40 mg Susp UD PO SCH (05:02)
[2017-09-07 06:29] LABS: BASO # 0.1 K/uL (0.0-0.2); BASO % 0.7 % (0.0-2.0); EOS # 0.1 K/uL (0.0-0.7); EOS % 1.5 % (0.0-4.0); HEMOGLOBIN 12.4 g/dL (11.0-16.0); LYMPH # 1.5 K/uL (1.0-4.3); LYMPH % 18.7 % (20.0-40.0); MEAN CELL VOLUME 94.5 fL (81.0-99.0); MEAN CORPUSCULAR HEMOGLOBIN 32.2 pg (27.0-31.0); MEAN CORPUSCULAR HGB CONC 34.1 g/dL (33.0-37.0); MEAN PLATELET VOLUME 9.3 fL (7.2-11.7); MONO # 0.8 K/uL (0.0-0.8); MONO % 9.9 % (0.0-10.0); NEUT # 5.8 K/uL (1.8-7.0); NEUT % 69.2 % (50.0-75.0); NRBC % 0.1 % (0.0-2.0); RBC 3.87 Mil/uL (3.80-5.20); RED CELL DISTRIBUTION WIDTH 14.9 % (11.5-14.5); WHITE BLOOD COUNT 8.3 K/uL (4.8-10.8)
[2017-09-07 07:13] LABS: BLOOD UREA NITROGEN 10 mg/dL (7-17); CALCIUM 8.9 mg/dl (8.6-10.4); GFR AFRICAN-AMERICAN > 60; GFR NON-AFRICAN AMERICAN > 60
[2017-09-07] MEDS: (Novolin R) Insulin Human Regular 100 units/ml vial SC SCH ×4 (08:15→22:09)
[2017-09-07] MEDS: Enoxaparin 30 mg Syringe SC SCH (09:33)
[2017-09-07] MEDS ORDERED: Potassium Chloride 20 mEq ER Tab PO SCH (10:00)
--- NOTE | 2017-09-07 10:39 | CP.PCM.PN ---
Subjective - Date & Time of Evaluation Date of Evaluation: 09/07/17 Time of Evaluation: 10:37 - Subjective Subjective: General Surgery Progress Note for Dr. Borrego This 71F was seen and examined this Am at bedside no acute events overnight. Dressing was changed this AM sanguinous drainage no purulence noted. Denies any pain. No new complaints. Objective - Vital Signs/Intake and Output Vital Signs (last 24 hours): Temp Pulse Resp BP Pulse Ox 98.6 F 94 H 20 132/77 95 09/07/17 08:00 09/07/17 08:00 09/07/17 08:00 09/07/17 08:00 09/07/17 08:00 - Medications Medications: Current Medications Acetaminophen (Tylenol 325mg Tab) 650 mg PO Q6 PRN PRN Reason: Pain, moderate (4-7) Last Admin: 09/07/17 09:36 Dose: 650 mg Chlorthalidone (Hygroton) 25 mg PO DAILY [facility] Last Admin: 09/07/17 09:32 Dose: 25 mg Enoxaparin Sodium (Lovenox) 30 mg SC DAILY [facility] Last Admin: 09/07/17 09:33 Dose: Not Given Clindamycin Phosphate 300 mg/ (Sodium Chloride) 52 mls @ 104 mls/hr IVPB Q6H [facility] PRN Reason: Protocol Last Admin: 09/07/17 09:35 Dose: 104 mls/hr Meropenem 500 mg/ Sodium (Chloride) 100 mls @ 100 mls/hr IVPB Q8 [facility] PRN Reason: Protocol Last Admin: 09/07/17 05:00 Dose: 100 mls/hr Vancomycin/Sodium Chloride (Vancomycin 1 Gm/Ns 200 Ml) 1 gm in 200 mls @ 133.333 mls/hr IVPB Q12H [facility] PRN Reason: Protocol Stop: 09/08/17 05:01 Last Admin: 09/07/17 04:58 Dose: 133.333 mls/hr Insulin Human Regular (Novolin R) 0 unit SC ACHS [facility] PRN Reason: Protocol Last Admin: 09/07/17 08:15 Dose: 2 unit Losartan Potassium (Cozaar) 100 mg PO DAILY [facility] Last Admin: 09/07/17 09:31 Dose: 100 mg Metformin HCl (Glucophage) 850 mg PO BID [facility] Last Admin: 09/07/17 09:32 Dose: 850 mg Pantoprazole Sodium (Protonix Susp) 40 mg PO 0600 [facility] Last Admin: 09/07/17 05:02 Dose: 40 mg Sitagliptin Phosphate (Januvia) 100 mg PO DAILY [facility] Last Admin: 09/07/17 09:33 Dose: Not Given - Labs Labs: 09/07/17 06:24 09/07/17 06:24 PT 11.9 SECONDS (9.7-12.2) 09/06/17 07:15 INR 1.1 09/06/17 07:15 - Constitutional Appears: Non-toxic, No Acute Distress - Head Exam Head Exam: ATRAUMATIC, NORMOCEPHALIC - Eye Exam Eye Exam: EOMI - ENT Exam ENT Exam: Mucous Membranes Moist - Respiratory Exam Respiratory Exam: NORMAL BREATHING PATTERN - Cardiovascular Exam Cardiovascular Exam: +S1, +S2 - GI/Abdominal Exam GI & Abdominal Exam: Soft. absent: Tenderness - Neurological Exam Neurological Exam: Alert, Awake - Psychiatric Exam Psychiatric exam: Normal Affect, Normal Mood - Skin Skin Exam: Dry, Intact - Additional Findings Additional findings: [place] sutured in place non tender right breast Assessment and Plan - Assessment and Plan (Free Text) Assessment: 71F with invasive ductal CA POD#1 s/p right breast lumpectomy and doing well Vital signs stable Labs WNL [place] to remain in place and be removed by her primary surgeon upon followup No acute surgical intervention indicated at this time D/W Dr. Elmo Davis PGY2
--- NOTE | 2017-09-07 19:17 | CP.PCM.PN ---
Subjective - Date & Time of Evaluation Date of Evaluation: 09/07/17 Time of Evaluation: 19:17 - Subjective Subjective: CHIEF COMPLAINTS TODAY : afebrile,VSS no new complaints . S/P Incision and Drainage of Right Breast Abscess 09/06/17 ROS. HEENT : N. Resp : No SOB wheezing, cough Cardio : No CP, PND orthopnea GI : No abd. 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 Musculoskel : N Ext. : Pedal pulses intact, no edema or calf pain Derm : N Psych : N. PE. Pt. is alert awake in no distress. V.S As noted in the chart Head ,ear nose,throat and eyes : Normal. Neck : Supple with normal carotids. Lungs: Clear air entry. Heart : S1 & S2 normal . . No murmur. S4 + Abd : Soft non tender with normal bowel sounds. Neuro : Moves all ext. with no localized deficit. Ext : No edema with intact pulses. Neg. calf tenderness Derm : RT. 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 no drainage per nipple or breast scar tissue Radiology/Labs . RT BREAST ASPIRATE 09/06/17 FEW PMNS [place]Y GROWTH OF GPC 09/01/17 breast ultrasound; noted and reviewed Complex fluid collection 8 9:00 o'clock axis right breast,slightly larger than on 08/08/17. Complex cyst with internal septations right chest wall 7.5 cm in greatest dimension ? seroma versus abscess cannot be ruled out. BLOOD CULTURES 09/01/17 -VE TO DATE Objective - Vital Signs/Intake and Output Vital Signs (last 24 hours): Temp Pulse Resp BP Pulse Ox 98.5 F 84 20 138/74 97 09/07/17 16:41 09/07/17 16:41 09/07/17 16:41 09/07/17 16:41 09/07/17 16:41 - Medications Medications: Current Medications Acetaminophen (Tylenol 325mg Tab) 650 mg PO Q6 PRN PRN Reason: Pain, moderate (4-7) Last Admin: 09/07/17 17:42 Dose: 650 mg Chlorthalidone (Hygroton) 25 mg PO DAILY [facility] Last Admin: 09/07/17 09:32 Dose: 25 mg Enoxaparin Sodium (Lovenox) 30 mg SC DAILY [facility] Last Admin: 09/07/17 09:33 Dose: Not Given Clindamycin Phosphate 300 mg/ (Sodium Chloride) 52 mls @ 104 mls/hr IVPB Q6H [facility] PRN Reason: Protocol Last Admin: 09/07/17 16:42 Dose: 104 mls/hr Meropenem 500 mg/ Sodium (Chloride) 100 mls @ 100 mls/hr IVPB Q8 [facility] PRN Reason: Protocol Last Admin: 09/07/17 13:30 Dose: 100 mls/hr Vancomycin/Sodium Chloride (Vancomycin 1 Gm/Ns 200 Ml) 1 gm in 200 mls @ 133.333 mls/hr IVPB Q12H [facility] PRN Reason: Protocol Stop: 09/08/17 05:01 Last Admin: 09/07/17 17:37 Dose: 133.333 mls/hr Insulin Human Regular (Novolin R) 0 unit SC ACHS [facility] PRN Reason: Protocol Last Admin: 09/07/17 17:13 Dose: Not Given Losartan Potassium (Cozaar) 100 mg PO DAILY [facility] Last Admin: 09/07/17 09:31 Dose: 100 mg Metformin HCl (Glucophage) 850 mg PO BID [facility] Last Admin: 09/07/17 17:37 Dose: 850 mg Pantoprazole Sodium (Protonix Susp) 40 mg PO 0600 [facility] Last Admin: 09/07/17 05:02 Dose: 40 mg Sitagliptin Phosphate (Januvia) 100 mg PO DAILY [facility] Last Admin: 09/07/17 09:33 Dose: Not Given - Labs Labs: 09/07/17 06:24 09/07/17 06:24 PT 11.9 SECONDS (9.7-12.2) 09/06/17 07:15 INR 1.1 09/06/17 07:15 Assessment and Plan (1) Breast abscess Assessment & Plan: S/P I&D RT BREAST COLLECTION 09/06/17 purulent drainage noted in OR To continue IV Merrem 500 mg every 8 hourly.09/01/17 Continue IV vancomycin 1 g every 12 hourly 09/02/17 continue IV Cleocin 300 mg every 8 hourly 09/01/17. Vanco trough 09/05/17-- 10.6 ok follow-up cultures to adjust antibiotics. LWC PER SURGERY. Status: Acute (2) Cellulitis of right breast Assessment & Plan: IMPROVING Status: Acute (3) Failure of outpatient treatment Status: Acute (4) Diabetes Status: Chronic (5) Hypertension Status: Chronic
[2017-09-08] MEDS: Clindamycin 300 MG in Sodium Chloride 0.9% 50 ML IVPB SCH ×3 (04:42→17:00)
[2017-09-08] MEDS: Vancomycin 1 gm/NS 200 ml 1 GM/200 ML BAG IVPB SCH ×2 (04:47→17:52)
[2017-09-08] MEDS: Pantoprazole 40 mg Susp UD PO SCH (05:31)
[2017-09-08] MEDS: Meropenem 500 MG in Sodium Chloride 0.9% 100 ML IVPB SCH ×3 (05:32→21:12)
[2017-09-08] MEDS: (Novolin R) Insulin Human Regular 100 units/ml vial SC SCH ×4 (08:25→21:51)
[2017-09-08] MEDS: Enoxaparin 30 mg Syringe SC SCH (10:30)
--- NOTE | 2017-09-08 16:38 | CP.PCM.PN ---
Subjective - Date & Time of Evaluation Date of Evaluation: 09/08/17 Time of Evaluation: 16:38 - Subjective Subjective: CHIEF COMPLAINTS TODAY : afebrile,VSS no new complaints . S/P Incision and Drainage of Right Breast Abscess 09/06/17 WOUND CULTURES -VE GROWTH X 24HRS. ROS. HEENT : N. Resp : No SOB wheezing, cough Cardio : No CP, PND orthopnea GI : No abd. 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 Musculoskel : N Ext. : Pedal pulses intact, no edema or calf pain Derm : N Psych : N. PE. Pt. is alert awake in no distress. V.S As noted in the chart Head ,ear nose,throat and eyes : Normal. Neck : Supple with normal carotids. Lungs: Clear air entry. Heart : S1 & S2 normal . . No murmur. S4 + Abd : Soft non tender with normal bowel sounds. Neuro : Moves all ext. with no localized deficit. Ext : No edema with intact pulses. Neg. calf tenderness Derm : RT. 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 no drainage per nipple or breast scar tissue Radiology/Labs . RT BREAST ASPIRATE 09/06/17 -VE GROWTH X 24 HRS. 09/01/17 breast ultrasound; noted and reviewed Complex fluid collection 8 9:00 o'clock axis right breast,slightly larger than on 08/08/17. Complex cyst with internal septations right chest wall 7.5 cm in greatest dimension ? seroma versus abscess cannot be ruled out. BLOOD CULTURES 09/01/17 -VE TO DATE Objective - Vital Signs/Intake and Output Vital Signs (last 24 hours): Temp Pulse Resp BP Pulse Ox 98.2 F 88 20 154/75 H 100 09/08/17 15:30 09/08/17 15:30 09/08/17 15:30 09/08/17 15:30 09/08/17 15:30 Intake and Output: 09/08/17 09/08/17 06:59 18:59 Intake Total 750 Balance 750 - Medications Medications: Current Medications Acetaminophen (Tylenol 325mg Tab) 650 mg PO Q6 PRN PRN Reason: Pain, moderate (4-7) Last Admin: 09/08/17 02:51 Dose: 650 mg Chlorthalidone (Hygroton) 25 mg PO DAILY [facility] Last Admin: 09/08/17 10:30 Dose: 25 mg Enoxaparin Sodium (Lovenox) 30 mg SC DAILY [facility] Last Admin: 09/08/17 10:30 Dose: 30 mg Meropenem 500 mg/ Sodium (Chloride) 100 mls @ 100 mls/hr IVPB Q8 [facility] PRN Reason: Protocol Last Admin: 09/08/17 14:48 Dose: 100 mls/hr Vancomycin HCl 1,000 mg/ (Sodium Chloride) 250 mls @ 166.6 mls/hr IVPB Q12H [facility] PRN Reason: Protocol Insulin Human Regular (Novolin R) 0 unit SC ACHS [facility] PRN Reason: Protocol Last Admin: 09/08/17 13:05 Dose: 3 unit Losartan Potassium (Cozaar) 100 mg PO DAILY [facility] Last Admin: 09/08/17 10:00 Dose: 100 mg Metformin HCl (Glucophage) 850 mg PO BID [facility] Last Admin: 09/08/17 10:30 Dose: 850 mg Pantoprazole Sodium (Protonix Susp) 40 mg PO 0600 [facility] Last Admin: 09/08/17 05:31 Dose: 40 mg Sitagliptin Phosphate (Januvia) 100 mg PO DAILY [facility] Last Admin: 09/08/17 10:30 Dose: 100 mg - Labs Labs: 09/07/17 06:24 09/07/17 06:24 PT 11.9 SECONDS (9.7-12.2) 09/06/17 07:15 INR 1.1 09/06/17 07:15 Assessment and Plan (1) Breast abscess Assessment & Plan: I&D RT BREAST COLLECTION 09/06/17 purulent drainage noted in OR. WOUND CULTURES NEGATIVE GROWTH FOR 24 HOURS. To continue IV Merrem 500 mg every 8 hourly.09/01/17 Continue IV vancomycin 1 g every 12 hourly 09/02/17 DC IV CLEOCIN. START BY MOUTH DURICEF 500 MG BY MOUTH TWICE A DAY FOR 10 DAYS STARTING IN A.M. BY MOUTH BACID 1 TABLET BY MOUTH AT BEDTIME FOR 10 DAYS. LWC RIGHT BREAST PER SURGERY. Status: Acute (2) Cellulitis of right breast Status: Acute (3) Failure of outpatient treatment Status: Acute (4) Diabetes Status: Chronic (5) Hypertension Status: Chronic
--- NOTE | 2017-09-08 19:19 | CP.PCM.PN ---
Subjective - Date & Time of Evaluation Date of Evaluation: 09/08/17 Time of Evaluation: 19:21 - Subjective Subjective: PT feels well no complaints ambulatory getting PT Objective - Vital Signs/Intake and Output Vital Signs (last 24 hours): Temp Pulse Resp BP Pulse Ox 98.2 F 88 20 154/75 H 100 09/08/17 15:30 09/08/17 15:30 09/08/17 15:30 09/08/17 15:30 09/08/17 15:30 Intake and Output: 09/08/17 09/09/17 18:59 06:59 Intake Total 452 Balance 452 - Medications Medications: Current Medications Acetaminophen (Tylenol 325mg Tab) 650 mg PO Q6 PRN PRN Reason: Pain, moderate (4-7) Last Admin: 09/08/17 02:51 Dose: 650 mg Chlorthalidone (Hygroton) 25 mg PO DAILY [facility] Last Admin: 09/08/17 10:30 Dose: 25 mg Enoxaparin Sodium (Lovenox) 30 mg SC DAILY [facility] Last Admin: 09/08/17 10:30 Dose: 30 mg Meropenem 500 mg/ Sodium (Chloride) 100 mls @ 100 mls/hr IVPB Q8 [facility] PRN Reason: Protocol Last Admin: 09/08/17 14:48 Dose: 100 mls/hr Vancomycin/Sodium Chloride (Vancomycin 1 Gm/Ns 200 Ml) 1 gm in 200 mls @ 133 mls/hr IVPB Q12H [facility] PRN Reason: Protocol Stop: 09/13/17 17:01 Last Admin: 09/08/17 17:52 Dose: 133 mls/hr Insulin Human Regular (Novolin R) 0 unit SC ACHS [facility] PRN Reason: Protocol Last Admin: 09/08/17 17:10 Dose: 2 unit Losartan Potassium (Cozaar) 100 mg PO DAILY [facility] Last Admin: 09/08/17 10:00 Dose: 100 mg Metformin HCl (Glucophage) 850 mg PO BID [facility] Last Admin: 09/08/17 17:43 Dose: 850 mg Pantoprazole Sodium (Protonix Susp) 40 mg PO 0600 [facility] Last Admin: 09/08/17 05:31 Dose: 40 mg Sitagliptin Phosphate (Januvia) 100 mg PO DAILY [facility] Last Admin: 09/08/17 10:30 Dose: 100 mg - Labs Labs: 09/07/17 06:24 09/07/17 06:24 PT 11.9 SECONDS (9.7-12.2) 09/06/17 07:15 INR 1.1 09/06/17 07:15 - Constitutional Appears: Well - Eye Exam Eye Exam: Normal appearance - ENT Exam ENT Exam: Mucous Membranes Moist - Respiratory Exam Respiratory Exam: Clear to Ausculation Bilateral Assessment and Plan - Assessment and Plan (Free Text) Assessment: ID; no growth in any culture abx likely to be changed to po tomorrow by ID bp better sugars better dc planning for tomorrow likely
[2017-09-08] MEDS ORDERED: Potassium Chloride 20 mEq/15 ml LIQ UD PO SCH (19:45)
[2017-09-09] MEDS: Vancomycin 1 gm/NS 200 ml 1 GM/200 ML BAG IVPB SCH (05:14)
[2017-09-09] MEDS: Pantoprazole 40 mg Susp UD PO SCH (05:14)
[2017-09-09] MEDS: Meropenem 500 MG in Sodium Chloride 0.9% 100 ML IVPB SCH (05:15)
[2017-09-09 07:06] LABS: BLOOD UREA NITROGEN 7 mg/dL (7-17); CALCIUM 9.4 mg/dl (8.6-10.4); GFR AFRICAN-AMERICAN > 60; GFR NON-AFRICAN AMERICAN > 60
[2017-09-09] MEDS: (Novolin R) Insulin Human Regular 100 units/ml vial SC SCH ×2 (08:10→12:28)
[2017-09-09] MEDS ORDERED: Potassium Chloride 20 mEq ER Tab PO SCH (10:00)
[2017-09-09 10:04] VITALS: BP 141/67; PULSE 90; TEMP 98; O2SAT 96
[2017-09-09] MEDS: Enoxaparin 30 mg Syringe SC SCH (10:50)
[2017-09-09] MEDS ORDERED: Potassium Chloride 20 mEq ER Tab PO ONE (11:53)
--- NOTE | 2017-09-09 13:37 | CP.PCM.PN ---
Subjective - Date & Time of Evaluation Date of Evaluation: 09/09/17 Time of Evaluation: 13:37 - Subjective Subjective: PT CLEARED FOR D/C HOME TODAY PER DR. DAVIDSON. PT ALSO CLEARED BY DR. CORTEZ. PER DR. CORTEZ, CONTINUE DURICEF 500 MG PO BID X10 DAYS WITH BACID QHS. PT'S DRESSING TO RIGHT BREAST CHANGED BY ME. PT SHOWN HOW TO DO DRESSING CHANGES AT HOME AND SHE VERBALIZES UNDERSTANDING. CM REQUESTED TO ARRANGE HOME WOUND CARE FOR PT. PT TO F/U WITH DR. DAVIDSON ON MONDAY IN THE OFFICE. SHE WILL ALSO F/U WITH DR. HURTADO AND DR. CORTEZ. PT VERBALIZES THAT SHE REFUSES TO FOLLOW UP WITH DR. TEJEDA, WHO DID HER ORIGINAL SURGERY, SHE IS VERY "UNHAPPY " WITH HIM. ALL D/C INFORMATION AND RX DISCUSSED AT LENGTH WITH THE PT AND SHE VERBALIZES UNDERSTANDING. SW TO ARRANGE TRANSPORTATION HOME. NO FURTHER ORDERS. -Siga con jacqueline Davidson en [place] oficina el jues (09/14/17) entre las 10:00 a.m. y las 12:00 p.m. Llame a la oficina el lunes para informarles de esta visita de seguimiento. -Siga con el Dr. Hurtado ([facility]) en la oficina en 1-2 semanas (lauren al Dr. Hurtado antes del 22/09/17). Llame a la oficina para programar [place] june. Por favor , mantenga el drenajennifer Carey en [place] lugar en descarga y mientras est en casa. Grupo corrales visita con el Dr. Hurtado, b[place] puede quitar el drenaje de [place]. -Puedes ducharte. Sin restricciones. -Puede cubrir el drenaje w / dry 4x4 y vestirse. -Contine con los medicamentos de [place] casa. [place] Tramadol y Naproxen se real rellenado para usted. -Las nuevas recetas incluyen: 1) Bacid (vitamina para corrales estmago mientras alex el antibitico) --- tome 1 tableta a la hora de acostarse grupo 10 tejeda. 2) Duricef (antibitico, 500 mg): tome 1 tableta a 2 veces al da grupo 10 d as. 3) K-Dur (suplemento de potasio): tome 1 tableta 1 vez al da grupo 5 tejeda. 4) Chlorthalidone (para corrales presin arterial, 25 mg) --- tome 1 pldora 1 vez al da. -Para mas preguntas, usted puedes llamar a la Dra. Davidson. -Follow up with Dr. Davidson in her office on (09/14/17) between 10:00 am and 12:00 pm. Call the office on Monday to inform them of this follow up visit. -Follow up with Dr. Hurtado (surgeon) in office in 1-2 weeks (see Dr. Hurtado by ). Call the office to make your appointment. Please keep the [place] drain in place on discharge and while at home. During your visit with Dr. Hurtado, she may remove the [place] drain. -You may shower. No restrictions. -Can cover the drain w/ dry 4x4 and dressing. -Continue your home medications. Your Tramadol and Naproxen have been refilled for you. -New prescriptions include: 1) Bacid (vitamin for your stomach while taking the antibiotic)---take 1 pill at bedtime for 10 days. 2) Duricef (antibiotic, 500 mg)---take 1 pill at 2 times a day for 10 days. 3) K-Dur (potassium supplement)---take 1 pill 1 time a day for 5 days. 4) Chlorthalidone (for your blood pressure, 25 mg)---take 1 pill 1 time a day. -For further questions or concerns, contact Dr. Davidson or Dr. Hurtado. Objective - Vital Signs/Intake and Output Vital Signs (last 24 hours): Temp Pulse Resp BP Pulse Ox 98.0 F 90 20 141/67 96 09/09/17 08:00 09/09/17 08:00 09/09/17 08:00 09/09/17 08:00 09/09/17 08:00 Intake and Output: 06/02/18 06/02/18 06:59 18:59 Intake Total 450 Balance 450 - Medications Medications: Current Medications Acetaminophen (Tylenol 325mg Tab) 650 mg PO Q6 PRN PRN Reason: Pain, moderate (4-7) Last Admin: 09/08/17 02:51 Dose: 650 mg Chlorthalidone (Hygroton) 25 mg PO DAILY [facility] Last Admin: 09/09/17 10:52 Dose: 25 mg Enoxaparin Sodium (Lovenox) 30 mg SC DAILY [facility] Last Admin: 09/09/17 10:50 Dose: 30 mg Meropenem 500 mg/ Sodium (Chloride) 100 mls @ 100 mls/hr IVPB Q8 [facility] PRN Reason: Protocol Last Admin: 09/09/17 05:15 Dose: 100 mls/hr Vancomycin/Sodium Chloride (Vancomycin 1 Gm/Ns 200 Ml) 1 gm in 200 mls @ 133 mls/hr IVPB Q12H [facility] PRN Reason: Protocol Stop: 09/13/17 17:01 Last Admin: 09/09/17 05:14 Dose: 133 mls/hr Insulin Human Regular (Novolin R) 0 unit SC ACHS [facility] PRN Reason: Protocol Last Admin: 09/09/17 12:28 Dose: 2 unit Losartan Potassium (Cozaar) 100 mg PO DAILY [facility] Last Admin: 09/09/17 10:51 Dose: 100 mg Metformin HCl (Glucophage) 850 mg PO BID [facility] Last Admin: 09/09/17 10:51 Dose: 850 mg Pantoprazole Sodium (Protonix Susp) 40 mg PO 0600 [facility] Last Admin: 09/09/17 05:14 Dose: 40 mg Sitagliptin Phosphate (Januvia) 100 mg PO DAILY [facility] Last Admin: 09/09/17 10:51 Dose: 100 mg - Labs Labs: 09/07/17 06:24 09/09/17 06:39 PT 11.9 SECONDS (9.7-12.2) 09/06/17 07:15 INR 1.1 09/06/17 07:15
--- NOTE | 2017-09-09 15:06 | CP.PCM.DIS ---
Provider - Provider Date of Admission: 09/01/17 15:17 Attending physician: Nicole Yung MD Time Spent in preparation of Discharge (in minutes): 30 Hospital Course - Lab Results Lab Results: Micro Results 09/06/17 07:40 Breast - Right Gram Stain - Final 09/06/17 07:40 Breast - Right Wound Culture - Preliminary No growth. 09/01/17 15:09 Blood Blood Culture - Final NO GROWTH AFTER 5 DAYS 09/01/17 15:09 Blood Gram Stain - Final TEST NOT PERFORMED 09/01/17 15:09 Blood Blood Culture - Final NO GROWTH AFTER 5 DAYS 09/01/17 15:09 Blood Gram Stain - Final TEST NOT PERFORMED 09/01/17 Unknown Naris MRSA Culture (Admit) - Final MRSA NOT DETECTED Most Recent Lab Values WBC 8.3 K/uL (4.8-10.8) 09/07/17 06:24 RBC 3.87 Mil/uL (3.80-5.20) 09/07/17 06:24 Hgb 12.4 g/dL (11.0-16.0) 09/07/17 06:24 Hct 36.5 % (34.0-47.0) 09/07/17 06:24 MCV 94.5 fL (81.0-99.0) 09/07/17 06:24 MCH 32.2 pg (27.0-31.0) H 09/07/17 06:24 MCHC 34.1 g/dL (33.0-37.0) 09/07/17 06:24 RDW 14.9 % (11.5-14.5) H 09/07/17 06:24 Plt Count 190 K/uL (130-400) 09/07/17 06:24 MPV 9.3 fL (7.2-11.7) 09/07/17 06:24 Neut % (Auto) 69.2 % (50.0-75.0) 09/07/17 06:24 Lymph % (Auto) 18.7 % (20.0-40.0) L 09/07/17 06:24 Glynn % (Auto) 9.9 % (0.0-10.0) 09/07/17 06:24 Eos % (Auto) 1.5 % (0.0-4.0) 09/07/17 06:24 Baso % (Auto) 0.7 % (0.0-2.0) 09/07/17 06:24 Neut # (Auto) 5.8 K/uL (1.8-7.0) 09/07/17 06:24 Lymph # (Auto) 1.5 K/uL (1.0-4.3) 09/07/17 06:24 Glynn # (Auto) 0.8 K/uL (0.0-0.8) 09/07/17 06:24 Eos # (Auto) 0.1 K/uL (0.0-0.7) 09/07/17 06:24 Baso # (Auto) 0.1 K/uL (0.0-0.2) 09/07/17 06:24 Differential Comment 09/01/17 13:57 PT 11.9 SECONDS (9.7-12.2) 09/06/17 07:15 INR 1.1 09/06/17 07:15 Sodium 145 mmol/L (132-148) 09/09/17 06:39 Potassium 3.2 mmol/L (3.6-5.2) L 09/09/17 06:39 Chloride 106 mmol/L (98-107) 09/09/17 06:39 Carbon Dioxide 28 mmol/L (22-30) 09/09/17 06:39 Anion Gap 15 (10-20) 09/09/17 06:39 BUN 7 mg/dL (7-17) 09/09/17 06:39 Creatinine 0.6 mg/dL (0.7-1.2) L 09/09/17 06:39 Est GFR ( Amer) > 60 09/09/17 06:39 Est GFR (Non-Af Amer) > 60 09/09/17 06:39 POC Glucose (mg/dL) 164 mg/dL (65-110) H 09/09/17 11:28 Random Glucose 164 mg/dL (65-105) H 09/09/17 06:39 Calcium 9.4 mg/dl (8.6-10.4) 09/09/17 06:39 Total Bilirubin 0.6 mg/dL (0.2-1.3) 09/04/17 07:13 AST 32 U/L (14-36) 09/04/17 07:13 ALT 31 U/L (9-52) 09/04/17 07:13 Alkaline Phosphatase 68 U/L (38-126) 09/04/17 07:13 Total Protein 7.0 g/dL (6.3-8.3) 09/04/17 07:13 Albumin 3.8 g/dL (3.5-5.0) 09/04/17 07:13 Globulin 3.3 gm/dL (2.2-3.9) 09/04/17 07:13 Albumin/Globulin Ratio 1.1 (1.0-2.1) 09/04/17 07:13 Vancomycin Trough 10.6 ug/mL (5.0-10.0) H 09/05/17 07:51 C. difficile Ag & Toxin Negative (NEGATIVE) 09/03/17 08:27 - Hospital Course Hospital Course: Pt admitted to treat infection; breast fluid collection drained drainage left in placed was evaulated by ID and Dr. Gordon stopped by to see her no positive culture No complications in hospital dc home PO abx to see IR for drainage in one week will need portacath for chemo soon Discharge Exam - Head Exam Head Exam: ATRAUMATIC, NORMOCEPHALIC - ENT Exam ENT Exam: Mucous Membranes Moist Discharge Plan - Discharge Medications Prescriptions: Lactobacillus Acidophilus [Bacid Acidophilus] 1 cap PO HS #10 cap Cefadroxil [Duricef] 500 mg PO BID #20 cap Chlorthalidone [Hygroton] 25 mg PO DAILY #30 tab Potassium Chloride [K-Dur 20 mEq ER Tab] 20 meq PO DAILY #5 tab Naproxen 375 mg PO TID #90 tablet Tramadol HCl [Ultram] 50 mg PO QPM PRN #15 tablet PRN Reason: Pain, Severe (8-10) - Follow Up Plan Condition: STABLE Disposition: HOME/ ROUTINE Instructions: Cellulitis (Skin Infection), Adult (DC), Breast Abscess Drainage (DC) Additional Instructions: -Siga con jacqueline Yung en corral[place] oficina el paty (09/14/17) entre las 10:00 a.m. y las 12:00 p.m. Llame a la oficina el lunes para informarles de esta visita de seguimiento. -Siga con el Dr. Borrego ([facility]) en la oficina en 1-2 semanas (lauren al Dr. Borrego antes del 22/09/17). Llame a la oficina para programar corrales june. Por favor , mantenga el drenaje [place] en corrales lugar en descarga y mientras est en casa. Grupo corrales visita con el Dr. Borrego, bryant puede quitar el drenaje de [place]. -Puedes ducharte. Sin restricciones. -Puede cubrir el drenaje w / dry 4x4 y vestirse. -Contine con los medicamentos de corrales casa. Corrales Tramadol y Naproxen se real rellenado para usted. -Las nuevas recetas incluyen: 1) Bacid (vitamina para corrales estmago mientras alex el antibitico) --- tome 1 tableta a la hora de acostarse grupo 10 tejeda. 2) Duricef (antibitico, 500 mg): tome 1 tableta a 2 veces al da grupo 10 d as. 3) K-Dur (suplemento de potasio): tome 1 tableta 1 vez al da grupo 5 tejeda. 4) Chlorthalidone (para corrales presin arterial, 25 mg) --- tome 1 pldora 1 vez al da. -Follow up with Dr. Yung in her office on (09/14/17) between 10:00 am and 12:00 pm. Call the office on Monday to inform them of this follow up visit. -Follow up with Dr. Borrego (surgeon) in office in 1-2 weeks (see Dr. Borrego by ). Call the office to make your appointment. Please keep the [place] drain in place on discharge and while at home. During your visit with Dr. Borrego, she may remove the [place] drain. -You may shower. No restrictions. -Can cover the drain w/ dry 4x4 and dressing. -Continue your home medications. Your Tramadol and Naproxen have been refilled for you. -New prescriptions include: 1) Bacid (vitamin for your stomach while taking the antibiotic)---take 1 pill at bedtime for 10 days. 2) Duricef (antibiotic, 500 mg)---take 1 pill at 2 times a day for 10 days. 3) K-Dur (potassium supplement)---take 1 pill 1 time a day for 5 days. 4) Chlorthalidone (for your blood pressure, 25 mg)---take 1 pill 1 time a day. -For further questions or concerns, contact Dr. Yung or Dr. Borrego. Referrals: Kaylynn Borrego MD [Staff Provider] - Nicole Yung MD [Staff Provider] - Andreea Burris MD [Staff Provider] -
== END 2017-09-09 16:24 | disposition home or self-care (01) | DRG 600 ==
LOC: C.ER 12:28 → C.3T 15:17 → C.9E 15:17
PROVIDERS: ADMIT Internal Medicine; ATTEND Internal Medicine
PROC: 0H9T00Z Drainage of Right Breast with Drainage Device, Open Approach (ICD-10-PCS; principal; 2017-09-06 12:00)
DX: N61.1 Abscess of the breast and nipple (principal); T81.4XXA Infection following a procedure, initial encounter; C50.911 Malignant neoplasm of unspecified site of right female breast; E11.9 Type 2 diabetes mellitus without complications; E78.00 Pure hypercholesterolemia, unspecified; I10 Essential (primary) hypertension

== ENCOUNTER 2017-11-08 10:22 | Emergency (ER) | payer MEDICARE, MEDICAID ==
[2017-11-08 10:22] VITALS: BMI 39.0
--- NOTE | 2017-11-08 11:11 | C.PDOC ---
History Of Present Illness 72 y/o female presents to the ER complaining of blood around rectal region. Patient states that she is constipated. Patient denies having nausea, vomiting, and diarrhea. Of note, patient has been recently diagnosed with cancer of right breast. She is starting chemotherapy soon and she will have port placed. Time Seen by Provider: 11/08/17 10:33 Chief Complaint (Nursing): GI Problem History Per: Assistant Passenger Locomotive Engineer (nurse) History/Exam Limitations: no limitations Onset/Duration Of Symptoms: Days Current Symptoms Are (Timing): Still Present Severity: Moderate Past Medical History Reviewed: Historical Data, Nursing Documentation, Vital Signs Vital Signs: Last Vital Signs Temp 98.9 F 11/08/17 14:39 Pulse 88 11/08/17 14:39 Resp 16 11/08/17 14:39 BP 176/78 H 11/08/17 14:39 Pulse Ox 97 11/08/17 14:54 - Medical History PMH: Arthritis (BACK), Diabetes, HTN, Hypercholesterolemia, Kidney Stones, Chronic Kidney Disease Surgical History: Cholecystectomy - [facility] Procedures APPLICATION OF SPLINT (11/12/14) DRAINAGE OF RIGHT BREAST WITH DRAINAGE DEVICE, OPEN APPROACH (09/01/17) DRAINAGE OF RIGHT BREAST, OPEN APPROACH (08/08/17) TETANUS TOXOID ADMINIST (08/14/13) Family History: States: No Known Family Hx - Social History Hx Tobacco Use: No Hx Alcohol Use: No Hx Substance Use: No - Immunization History Hx Tetanus Toxoid Vaccination: Yes Hx Influenza Vaccination: Yes Hx Pneumococcal Vaccination: No Review Of Systems Except As Marked, All Systems Reviewed And Found Negative. Constitutional: Negative for: Fever, Chills Gastrointestinal: Positive for: Constipation, Other (blood around rectal region) . Negative for: Nausea, Vomiting, Diarrhea Physical Exam - Physical Exam Appears: Non-toxic, No Acute Distress Skin: Normal Color, Warm, Dry Head: Atraumatic, Normacephalic Eye(s): bilateral: Normal Inspection Nose: Normal Oral Mucosa: Moist Neck: Supple Chest: Symmetrical Cardiovascular: Rhythm Regular Respiratory: Normal Breath Sounds, No Rales, No Rhonchi, No Wheezing Gastrointestinal/Abdominal: Normal Exam, Soft, No Tenderness, No Guarding, No Rebound Rectal: Heme Negative, No Hemorrhoids, No Tenderness Extremity: Normal ROM Neurological/Psych: Oriented x3, Normal Speech ED Course And Treatment - Laboratory Results Result Diagrams: 11/08/17 11:15 11/08/17 11:15 Lab Interpretation: No Acute Changes O2 Sat by Pulse Oximetry: 97 (RA) Pulse Ox Interpretation: Normal - Other Rad Abd Obs. Series X-Ray: Viewed By Me, Read By Radiologist Interpretation: Date of service: 11/08/2017. PROCEDURE: Radiographs of the chest and abdomen (obstructive series). HISTORY: Abdominal pain. COMPARISON: No prior. TECHNIQUE: AP radiograph of the chest, with upright and supine radiographs of the abdomen. FINDINGS: CHEST: Lungs: The lungs are clear. Cardiovascular: Normal size heart. No pulmonary vascular congestion. Pleura: No pleural fluid. No pneumothorax. Other findings: None. ABDOMEN AND PELVIS: Bowel: There is large amount of stool in the colon. No evidence of mechanical obstruction. Free air: None. Bones: Within normal limits for the patient's age. Other findings: Surgical clips in the right upper quadrant are related to prior cholecystectomy. . IMPRESSION: Constipation. No evidence of bowel obstruction. Clear lungs. Progress Note: Patient treated with IVF NSS and and macrobid. On re-evaluation lungs clear in no distress Reassessment Condition: Improved Medical Decision Making Medical Decision Making: Plan: --Labs --Abd Obs. Series --UA --IV Fluids Disposition Counseled Patient/Family Regarding: Studies Performed, Diagnosis, Need For Followup, Rx Given - Disposition Referrals: [facility] [Outside] [facility] [Outside] Disposition: HOME/ ROUTINE Disposition Time: 14:10 Condition: STABLE Additional Instructions: Follow up with your PMD for further evaluation Prescriptions: Nitrofurantoin Macrocrystals [Macrobid] 1 cap PO BID #14 cap Polyethylene Glycol 3350 [Miralax] 17 gm PO DAILY PRN #12 [email or web address] PRN Reason: Constipation Instructions: Urinary Tract Infections in Adults, Constipation in Adults Forms: [employer] (Irish) Print Language: SINHALA - POA Present On Arrival: None - Clinical Impression Clinical Impression: UTI (urinary tract infection), Constipation - PA / CLASSIFIED COPY CONTROL CLERK / Resident Statement MD/DO has reviewed & agrees with the documentation as recorded. - Scribe Statement The provider has reviewed the documentation as recorded by the Luzmaria Dumas Provider Attestation All medical record entries made by the Luisibe were at my direction and personally dictated by me. I have reviewed the chart and agree that the record accurately reflects my personal performance of the history, physical exam, medical decision making, and the department course for this patient. I have also personally directed, reviewed, and agree with the discharge instructions and disposition.
[2017-11-08] MEDS: Sodium Chloride 0.9% 1,000 ML IV ONE (11:12)
[2017-11-08 11:23] LABS: BASO # 0.1 K/uL (0.0-0.2); BASO % 0.5 % (0.0-2.0); EOS # 0.1 K/uL (0.0-0.7); EOS % 0.5 % (0.0-4.0); HEMOGLOBIN 15.2 g/dL (11.0-16.0); LYMPH % 16.9 % (20.0-40.0); MEAN CELL VOLUME 93.6 fL (81.0-99.0); MEAN CORPUSCULAR HEMOGLOBIN 31.6 pg (27.0-31.0); MEAN CORPUSCULAR HGB CONC 33.8 g/dL (33.0-37.0); MEAN PLATELET VOLUME 8.8 fL (7.2-11.7); MONO # 0.9 K/uL (0.0-0.8); MONO % 7.4 % (0.0-10.0); NEUT # 8.9 K/uL (1.8-7.0); NEUT % 74.7 % (50.0-75.0); RBC 4.82 Mil/uL (3.80-5.20); RED CELL DISTRIBUTION WIDTH 14.7 % (11.5-14.5); WHITE BLOOD COUNT 11.9 K/uL (4.8-10.8)
[2017-11-08 11:57] LABS: ALB/GLOB RATIO 1.3 (1.0-2.1); ALBUMIN 5.1 g/dL (3.5-5.0); ALT/SGPT 36 U/L (9-52); AST/SGOT 41 U/L (14-36); BLOOD UREA NITROGEN 20 mg/dL (7-17); CALCIUM 10.9 mg/dl (8.6-10.4); GFR AFRICAN-AMERICAN > 60; GFR NON-AFRICAN AMERICAN > 60; LIPASE 257 U/L (23-300)
--- NOTE | 2017-11-08 12:43 | RAD ---
Date of service: 11/08/2017 PROCEDURE: Radiographs of the chest and abdomen (obstructive series) HISTORY: Abdominal pain COMPARISON: No prior. TECHNIQUE: AP radiograph of the chest, with upright and supine radiographs of the abdomen. FINDINGS: CHEST: Lungs: The lungs are clear. Cardiovascular: Normal size heart. No pulmonary vascular congestion. Pleura: No pleural fluid. No pneumothorax. Other findings: None. ABDOMEN AND PELVIS: Bowel: There is large amount of stool in the colon. No evidence of mechanical obstruction. Free air: None. Bones: Within normal limits for the patient's age. Other findings: Surgical clips in the right upper quadrant are related to prior cholecystectomy. . IMPRESSION: Constipation. No evidence of bowel obstruction. Clear lungs.
[2017-11-08 13:54] LABS: SQUAMOUS EPITHIAL 1 /hpf (0-5); URINE BACTERIA RARE (<OCC); URINE BILIRUBIN NEGATIVE (NEGATIVE); URINE BLOOD 1+ (NEGATIVE); URINE CLARITY Hazy (Clear); URINE COLOR Colorless (YELLOW); URINE GLUCOSE (UA) NORMAL (Normal); URINE LEUKOCYTE ESTERASE 3+ Leu/uL (Negative); URINE PROTEIN NEGATIVE (NEGATIVE); URINE UROBILINOGEN NORMAL mg/dL (0.2-1.0)
[2017-11-08 14:41] VITALS: BP 176/78; PULSE 88; RESP 16; TEMP 98.9
[2017-11-08 14:54] VITALS: O2SAT 97
== END 2017-11-08 14:41 | disposition home or self-care (01) ==
LOC: C.ER 10:22
DX: K59.00 Constipation, unspecified (principal); N39.0 Urinary tract infection, site not specified
CPT/HCPCS: 74022; 80053; 81001; 83690; 85025; 96360; 99285; J7030

== ENCOUNTER 2018-06-04 09:20 | Emergency (ER) | payer MEDICARE, MEDICAID ==
[2018-06-04 09:21] VITALS: BMI 39.0
[2018-06-04 09:31] VITALS: O2SAT 95
[2018-06-04] MEDS ORDERED: Sodium Chloride 0.9% 1,000 ML IV ONE (09:56)
[2018-06-04] MEDS ORDERED: DiphenhydrAMINE 50 mg/ml Inj IVP STA (09:58)
--- NOTE | 2018-06-04 10:01 | C.PDOC ---
History Of Present Illness 72 y/o female presents to the ED for evaluation of itchy rash developed for past 4-5 days after was diagnosed with a UTI and started taking Amoxicillin. Pt reports, was seen by PMD few days ago and was given Benadryl and changes amox icillin to Cipro. Pt admits, takes benadryl for itchiness without improvement. Otherwise, patient denies fever, chills, swelling, denies throat tightness or swelling, drooling, dyspnea, chest pain, SOB, wheezing, palpitation, abd. pain, N/V/D, denies uti sx now, denies hematuria, back pain. Ambulatory, not in any apparent distress. Time Seen by Provider: 06/04/18 09:38 Chief Complaint (Nursing): Allergic Reaction History Per: Patient History/Exam Limitations: no limitations Onset/Duration Of Symptoms: Days (2) Current Symptoms Are (Timing): Still Present Associated Symptoms: Skin Rash Past Medical History Reviewed: Historical Data, Nursing Documentation, Vital Signs Vital Signs: Last Vital Signs Temp 98.6 F 06/04/18 09:24 Pulse 113 H 06/04/18 09:24 Resp 18 06/04/18 09:24 BP 178/96 H 06/04/18 09:24 Pulse Ox 95 06/04/18 09:24 - Medical History PMH: Arthritis (BACK), Diabetes, Gall Bladder Disease, HTN, Hypercholesterolemia, Kidney Stones, Chronic Kidney Disease Surgical History: Cholecystectomy, Endoscopy - [facility] Procedures APPLICATION OF SPLINT (11/12/14) DRAINAGE OF RIGHT BREAST WITH DRAINAGE DEVICE, OPEN APPROACH (09/01/17) DRAINAGE OF RIGHT BREAST, OPEN APPROACH (08/08/17) TETANUS TOXOID ADMINIST (08/14/13) Family History: States: Unknown Family Hx - Social History Hx Tobacco Use: No Hx Alcohol Use: No Hx Substance Use: No - Immunization History Hx Tetanus Toxoid Vaccination: Yes Hx Influenza Vaccination: Yes Hx Pneumococcal Vaccination: No Review Of Systems Except As Marked, All Systems Reviewed And Found Negative. Constitutional: Negative for: Fever, Chills Eyes: Negative for: Vision Change ENT: Negative for: Mouth Swelling, Throat Swelling, Other (throat closing sens ation) Cardiovascular: Negative for: Chest Pain Respiratory: Negative for: Shortness of Breath, Wheezing Skin: Positive for: Rash (throughout body, +itchiness) Neurological: Negative for: Weakness, Numbness Physical Exam - Physical Exam Appears: Non-toxic, No Acute Distress Skin: Warm, Rash (Scaterred urticaria rash to to anterior chest wall and back. No cellulitis.) Eye(s): bilateral: PERRL Nose: No Flaring Oral Mucosa: Moist, No Drooling Tongue: No Swelling Lips: No Swelling Throat: No Erythema, No Exudate, No Drooling Neck: Trachea Midline, Supple Cardiovascular: Rhythm Regular, No Murmur Respiratory: No Accessory Muscle Use, No Rhonchi, No Stridor, No Wheezing Gastrointestinal/Abdominal: Soft, No Tenderness, No Distention Extremity: Normal ROM, No Swelling Neurological/Psych: Oriented x3, Normal Speech ED Course And Treatment - Laboratory Results Result Diagrams: 06/04/18 10:13 06/04/18 10:13 Lab Interpretation: No Acute Changes O2 Sat by Pulse Oximetry: 95 (RA) Pulse Ox Interpretation: Normal Progress Note: Basic blood work and UA ordered. Urine culture sent. Patient given 1L IV fluids, 125 mg IV solu-medrol, 20 mg IV pepcid, and 50 mg IV benadryl. Pt was OBS in ED for 2.5 hours and reports mod improvement in sx. On re-eval, skin clear, no more urticarian rash noted. Pt is afebrile, hemodynamicaly stable. Non-toxic. ENT: no acute findings, no edema, uvula midline, no edema. Lungs: CTA B/L, BS equal B/L. Abd: benign. Neuorlogicaly intact. Blood owrk review and appears baseline. UA review (-) acute UTI noted. Pt advised to stop abx now due to allergic reaction. Pt advised and ref. to F/u with PMD in 1-2 days to repeat UA and furter tx. return to ED if any worsening or new changes. Disposition Counseled Patient/Family Regarding: Studies Performed, Diagnosis, Need For Followup, Rx Given - Disposition Referrals: Nicole Yung MD [Staff Provider] - Disposition: HOME/ ROUTINE Disposition Time: 11:43 Condition: STABLE Additional Instructions: STOP ANTIBIOTIC NOW DUE TO ALLERGIC REACTION AVOID PENICILLIN DUE TO ALLERGIC REACTION TAKE MEDICATION PRESCRIBED FOLLOW UP WITH PMD IN 2-3 DAYS FOR RE-EVALUATION, REPEAT URINALYSIS RETURN TO ED IF ANY WORSENING OR NEW CHANGES Prescriptions: Famotidine [Pepcid] 20 mg PO BID #10 tab Prednisone [Deltasone] 40 mg PO DAILY #6 tablet Instructions: Side Effects From Medicines, Adverse Drug Reactions, Adult (DC) Forms: [employer] (Slovak) Print Language: UGANDAN - Clinical Impression Clinical Impression: Allergic urticaria - PA / FORMER HAND / Resident Statement MD/DO has reviewed & agrees with the documentation as recorded. - Scribe Statement The provider has reviewed the documentation as recorded by the Scribharika Linn All medical record entries made by the Luisibharika were at my direction and personally dictated by me. I have reviewed the chart and agree that the record accurately reflects my personal performance of the history, physical exam, medical decision making, and the department course for this patient. I have also personally directed, reviewed, and agree with the discharge instructions and disposition.
[2018-06-04] MEDS ORDERED: DiphenhydrAMINE 50 mg/ml Inj ONE (10:14)
[2018-06-04] MEDS ORDERED: Sodium Chloride 0.9% 250 ML IV ONE (10:15)
[2018-06-04 10:25] LABS: BASO # 0.1 K/uL (0.0-0.2); BASO % 1.2 % (0.0-2.0); HEMOGLOBIN 13.2 g/dL (11.0-16.0); LYMPH # 1.1 K/uL (1.0-4.3); LYMPH % 13.3 % (20.0-40.0); MEAN CELL VOLUME 94.5 fL (81.0-99.0); MEAN CORPUSCULAR HEMOGLOBIN 30.3 pg (27.0-31.0); MEAN PLATELET VOLUME 7.5 fL (7.2-11.7); MONO # 0.9 K/uL (0.0-0.8); MONO % 10.6 % (0.0-10.0); NEUT # 6.4 K/uL (1.8-7.0); NEUT % 74.9 % (50.0-75.0); NRBC % 0.1 % (0.0-2.0); RBC 4.36 Mil/uL (3.80-5.20); RED CELL DISTRIBUTION WIDTH 19.1 % (11.5-14.5); WHITE BLOOD COUNT 8.6 K/uL (4.8-10.8)
[2018-06-04 10:29] LABS: BLOOD UREA NITROGEN 16 mg/dL (7-17); CALCIUM 9.5 mg/dl (8.6-10.4); GFR NON-AFRICAN AMERICAN > 60
[2018-06-04 10:43] LABS: SQUAMOUS EPITHIAL 3 /hpf (0-5); URINE BACTERIA OCC (<OCC); URINE BILIRUBIN NEGATIVE (NEGATIVE); URINE BLOOD NEGATIVE (NEGATIVE); URINE CLARITY Hazy (Clear); URINE COLOR Yellow (YELLOW); URINE GLUCOSE (UA) NORMAL (Normal); URINE PROTEIN NEGATIVE (NEGATIVE); URINE UROBILINOGEN NORMAL mg/dL (0.2-1.0)
[2018-06-04 10:45] LABS: URINE LEUKOCYTE ESTERASE 1+ Leu/uL (Negative)
[2018-06-04 13:29] VITALS: BP 145/77; PULSE 96; RESP 17; TEMP 99
== END 2018-06-04 13:57 | disposition home or self-care (01) ==
LOC: C.ER 09:20
DX: L50.0 Allergic urticaria (principal)
CPT/HCPCS: 80048; 81001; 85025; 87086; 87181; 96361; 96374; 96375; 99285; J1200; J2930; J7030

== ENCOUNTER 2018-08-15 08:07 | Outpatient (CLI) | payer MEDICARE, MEDICAID | END 2018-08-15 08:08 | disposition home or self-care (01) | LOC: C.VASC 08:07 | DX: M79.609 Pain in unspecified limb (principal) ==